=== PATIENT | male | born 1950 | race Caucasian/White ===

== ENCOUNTER 2019-04-28 16:12 | Inpatient (IN) ==
[2019-04-28] MEDS ORDERED: ASPIRIN PO ONE (16:20)
--- NOTE | 2019-04-28 17:31 | Diag Imaging Result Doc PS360 ---
EXAM: CHEST-2 VIEWS 04/28/2019 HISTORY: sob TECHNIQUE: PA and lateral chest COMMENT: There are bilateral pleural effusions. This was not the case on 05/23/2017 which is the most recent previous study. There is bibasilar atelectasis or pneumonia. IMPRESSION: Bilateral pleural effusions and basilar atelectasis. Electronically signed by Sean Leo 04/28/2019 5:28 PM
[2019-04-28] MEDS ORDERED: DUONEB (A & A) INH ONE (18:49)
--- NOTE | 2019-04-28 18:59 | PROVIDER DOCUMENTATION ---
HPI-Respiratory General - General Chief Complaint: Shortness of Breath Stated Complaint: Ozzie ONTIVEROS REFERRED Time Seen by Provider: 04/28/19 18:40 Source: patient, family ( at bedside) Allergies/Adverse Reactions: Patient Allergies Allergy/AdvReac Type Severity Reaction Status Date / Time No Known Allergies Allergy Verified 04/28/19 18:53 Home Medications: Home Medication List Medication Instructions Recorded Confirmed Last Taken Type Aspirin 81 mg PO DAILY 10/24/12 04/28/19 04/28/19 History LISINOpril [Prinivil] 20 mg PO BID 10/24/12 04/28/19 04/28/19 History Insulin Lispro [Humalog Kwikpen 100 unit SQ DIRECTED 05/22/17 04/28/19 04/28/19 History U-100] Insulin Detemir [Levemir] 18 unit SUBQ BID 04/28/19 04/28/19 04/28/19 History - History of Present Illness-Resp Nature of Presenting Problem: 68 YO M pmh for HTN presents for c/o SOB and orthopnea x 3 weeks. Pt states he went to [place] 2 months ago and returned and was dx with bronchitis, but the cough never went away. He went to PCP today and had imaging performed which showed fluid on his lungs. He also has worsening renal function. He has pmh for HTN and IDDM. He has associated cough, LE swelling with weight gain, and orthopnea. He denies fever or sick contacts. He follows with Dr. Read for renal. Onset/Duration: reports: other (3 weeks ago) Timing: reports: still present, getting worse Cough Quality/Degree: reports: dry cough Episode Frequency: no prior episodes Modifying Factors: improves with: nothing Associated Symptoms: reports: shortness of breath, other (orthopnea) Similar Symptoms Previously?: No Recently seen or treated by another doctor?: No Review of Systems - Adult - REVIEW OF SYSTEMS - ADULT Constitutional: denies: chills, fever Eyes: reports: no symptoms reported Ears, Nose, Mouth & Throat: reports: no symptoms reported Cardiovascular: reports: edema. denies: chest pain, palpitations Respiratory: reports: cough, shortness of breath. denies: pleurisy, wheezing Gastrointestinal: reports: nausea. denies: abdominal pain, constipation Genitourinary: reports: no symptoms reported. denies: dysuria, frequency, flank pain, hematuria, urinary retention, urgency Musculoskeletal: reports: no symptoms reported Integumentary: reports: no symptoms reported Neurological: reports: no symptoms reported Psychiatric: reports: no symptoms reported Past History - Adult - PAST MEDICAL HISTORY-ADULT Review of Records: reports: Old Records Reviewed, Medications Reviewed, Social history reviewed & non-contributory. Major Childhood Illnesses: reports: denies history Cardiovascular: reports: HTN Respiratory: reports: denies history Gastrointestinal: reports: denies history Genitourinary: reports: denies history Musculoskeletal: reports: denies history Neurological: reports: denies history Endocrine/Immune: reports: Diabetes Diabetes Type: Type 2 Diabetes controlled by:: Insulin Dependent Other Conditions: reports: denies history - PRIOR SURGERIES/PROCEDURES Surgical/Procedure History: reports: orthopedic (extremity) - IMMUNIZATION STATUS Childhood Immunizations: See Nurse Assessment Flu Vaccine: See Nurse Assessment - FAMILY HISTORY Family History: reviewed, not pertinent - SOCIAL HISTORY Smoking: denies, non-smoker Substance Use: denies Alcohol Use Frequency: occasionally Number of drinks per typical drinking period:: 2 drinks Living Situation: family Physical Exam-General - PHYSICAL EXAM-ADULT Initial Vital Signs Reviewed: Yes - CONSTITUTIONAL General Appearance: alert, no apparent distress - EYES Eyes: PERRL/EOMI, pink conjunctivae - HEAD, EARS, NOSE, MOUTH & THROAT HENMT: normocephalic/atraumatic, moist mucous membranes - NECK Neck: supple - RESPIRATORY Respiratory: crackles (b/l lower lung bases) - CARDIOVASCULAR Cardiovascular: regular rate, rhythm - GASTROINTESTINAL (ABDOMEN) Abdominal Exam: non tender, soft. negative: distended, guarding, rigid, rebound - MUSCULOSKELETAL Back Exam: no CVA tenderness Extremity: normal range of motion, normal gait, swelling (3+ pitting edema to thigh b/l) - SKIN Integumentary: normal color, normal turgor, warm/dry - NEUROLOGIC Neurologic: grossly normal - PSYCHIATRIC Psych/Mental Status: normal mood/affect, oriented x 3 Progress - PLAN OF CARE/RESULTS Progress/Plan/Lab Results: Vital Signs - 8 hr 04/28/19 16:18 04/28/19 19:10 Temperature 97.9 F Pulse Rate 76 78 Respiratory Rate 18 16 Blood Pressure 198/107 O2 Sat by Pulse Oximetry 98 Laboratory Results - last 24 hr 04/28/19 04/28/19 04/28/19 19:10 19:10 19:10 WBC 8.55 RBC 4.40 L Hgb 13.6 L Hct 40.7 L MCV 92.5 MCH 30.9 MCHC 33.4 RDW Std Deviation 13.6 Plt Count 241 MPV 11.1 H Immature Gran % (Auto) 0.0 Neut % (Auto) 70.2 Lymph % (Auto) 21.4 Scre[place] % (Auto) 5.3 Eos % (Auto) 2.3 Baso % (Auto) 0.8 Immature Gran # (Auto) 0.00 Neut # (Auto) 6.00 Lymph # (Auto) 1.83 Screven # (Auto) 0.45 Eos # (Auto) 0.20 Baso # (Auto) 0.07 PT INR PTT (Actin FS) Sodium 144 Potassium 4.5 Chloride 112 H Carbon Dioxide 20 L Anion Gap 12 BUN 36 H Creatinine 2.2 H Estimated GFR/1.73 m2 30 BUN/Creatinine Ratio 16 Glucose 171 H Calculated Osmolality 299 Calcium 9.1 Magnesium 2.0 Total Bilirubin 0.21 AST 21 ALT 15 Alkaline Phosphatase 74 Creatine Kinase 151 Troponin T High Sens Wna-E-Yiondwaghgy Pept 7840 H Total Protein 5.7 L Albumin 3.3 L Globulin 2.4 Albumin/Globulin Ratio 1.4 04/28/19 04/28/19 19:10 19:10 WBC RBC Hgb Hct MCV MCH MCHC RDW Std Deviation Plt Count MPV Immature Gran % (Auto) Neut % (Auto) Lymph % (Auto) Scre[place] % (Auto) Eos % (Auto) Baso % (Auto) Immature Gran # (Auto) Neut # (Auto) Lymph # (Auto) Screven # (Auto) Eos # (Auto) Baso # (Auto) PT 12.9 INR 0.97 PTT (Actin FS) 20.3 L Sodium Potassium Chloride Carbon Dioxide Anion Gap BUN Creatinine Estimated GFR/1.73 m2 BUN/Creatinine Ratio Glucose Calculated Osmolality Calcium Magnesium Total Bilirubin AST ALT Alkaline Phosphatase Creatine Kinase Troponin T High Sens 46 H Bbk-X-Arbkpyvymmt Pept Total Protein Albumin Globulin Albumin/Globulin Ratio Orders Category Date Time Status Cardiac Monitoring DIRECTED Care 04/28/19 16:20 Active Oxygen Therapy- ED Nursing DIRECTED Care 04/28/19 16:20 Active Saline Loc NOW Care 04/28/19 16:20 Active CHEST-2 VIEWS [RAD] Stat Exams 04/28/19 16:20 Completed CBC WITH ELECTRONIC DIFF [HEME] Stat Lab 04/28/19 19:10 Completed CK PROFILE [SP CHEM] Stat Lab 04/28/19 19:10 Completed COMPREHENSIVE METABOLIC PANEL [CHEM] Stat Lab 04/28/19 19:10 Completed MAGNESIUM [CHEM] Stat Lab 04/28/19 19:10 Completed PRO B-NATRIURETIC PEPTIDE Stat Lab 04/28/19 19:10 Completed PROTIME WITH INR [COAG] Stat Lab 04/28/19 19:10 Completed PTT [COAG] Stat Lab 04/28/19 19:10 Completed TROPONIN T HIGH SENSITIVITY Stat Lab 04/28/19 19:10 Completed Albuterol 2.5MG/Ipratrop 0.5MG [Duoneb (A & A)] Med 04/28/19 18:49 Discontinued 6 ml INH NOW ONE Aspirin Med 04/28/19 16:20 Discontinued 325 mg PO NOW ONE Aerosol Treatments Routine Oth 04/28/19 18:49 Completed Aerosol Treatments Stat Oth 04/28/19 18:49 Completed CP/SOB/Palp >45 yrs of Age Stat Oth 04/28/19 16:20 Ordered EKG [EKG] Stat Ther 04/28/19 16:20 Ordered Result Diagrams: 04/28/19 19:10 04/28/19 19:10 - REASSESSMENT Reassessment #1 Time Reassessed: 19:48 Status: other (pt presents with labs from his PCP that were drawn in Jan 2019, showing creat of 2.2 with GFR in the 30s. planning for admission when labs return) - XRAY 1 XRAY Study: Chest Impression: Abnormal, See EMR Report (EXAM: CHEST-2 VIEWS 04/28/2019 HISTORY: sob TECHNIQUE: PA and lateral chest COMMENT: There are bilateral pleural effusions. This was not the case on 05/23/2017 which is the most recent previous study. There is bibasilar atelectasis or pneumonia. IMPRESSION: Bilateral ple ural effusions and basilar atelectasis. Electronically signed by Sean Leo 04/28/2019 5:28 PM) - CONSULTS/PCP/HOSPITALIST Notification #1 *Consult/PCP/Hospitalist*: Dr. Joseph Time Discussed: 20:03 Consult Disposition: Will see in ED, Admit Departure - Departure Date of Disposition Decision: 01/14/20 Time of Disposition Decision: 19:08 DIAGNOSIS: New onset of congestive heart failure, CHF exacerbation, Renal insufficiency, Pleural effusion Dyspnea Qualifiers: Dyspnea type: orthopnea Qualified Code(s): R06.01 - Orthopnea Disposition: ADMITTED INPATIENT 09 Certified Medical Emergency: Emergent Condition: Stable Referrals and Follow-Ups: Mikayla Ontiveros CRNP [Primary Care Provider] - - Critical Care Note This patient required my direct & personal management of CC.: No Attestation - Physician/ FOREST Attestation Patient care was provided by Advanced Practice Provider:: No The physician spent face to face time with patient:: Yes Advanced Practice Provider documentation review:: Supervising physician onsite and consulted in the evaluation and care of this patient. The physician did have a face to face encounter with the patient.
[2019-04-28 19:27] LABS: INR 0.97; PROTIME 12.9 Seconds (11.0-16.0)
[2019-04-28 19:28] LABS: PTT 20.3 Seconds (22.3-41.8)
[2019-04-28 19:29] LABS: BASO# 0.07 X1000 (0.0-0.2); BASO% 0.8 % (0.0-0.8); EOS% 2.3 % (0.0-10.0); HEMATOCRIT 40.7 % (42.0-52.0); HEMOGLOBIN 13.6 g/dL (14.0-18.0); LYMPH# 1.83 X1000 (1.2-3.4); LYMPH% 21.4 % (20.5-51.1); MCH 30.9 PG (27-31); MCHC 33.4 g/dL (33-37); MCV 92.5 FL (81-99); MONO# 0.45 X1000 (0.11-0.59); MONO% 5.3 % (1.7-9.3); MPV 11.1 FL (7.4-10.4); NEUT% 70.2 % (42.2-75.2); PLT 241 X1000 (130-400); RDW 13.6 % (11.5-14.5); WBC 8.55 X1000 (4.8-10.8)
[2019-04-28 19:46] LABS: ALB/GLOB RATIO 1.4; ALBUMIN 3.3 g/dL (3.5-5.0); CALCIUM 9.1 mg/dL (8.8-10.2); CREATININE 2.2 mg/dL (0.7-1.2); POTASSIUM 4.5 mmol/L (3.5-5.1); TOTAL BILIRUBIN 0.21 mg/dL (0.20-1.00); TOTAL PROTEIN 5.7 g/dL (6.3-8.3)
--- NOTE | 2019-04-28 20:28 | EKG Report ---
Test Performed on : 04/28/2019 4:30:12 PM Test Reason : sob Blood Pressure : / mmHG Vent. Rate : 078 BPM Atrial Rate : 078 BPM P-R Int : 160 ms QRS Dur : 084 ms QT Int : 390 ms P-R-T Axes : 004 000 128 degrees QTc Int : 444 ms Sinus rhythm. with frequent premature ventricular complexes. Possible Left atrial enlargement ST & T wave abnormality, consider lateral ischemia Abnormal ECG When compared with ECG of 22-MAY-2017 22:49, premature ventricular complexes. are now present T wave inversion now evident in Lateral leads Unconfirmed Result
[2019-04-28] MEDS ORDERED: SALINE LOCK IV FLUID XX ONE (23:14)
[2019-04-29] MEDS ORDERED: LABETALOL IV PRN (01:18)
[2019-04-29] MEDS: LASIX IV SCH ×4 (02:01→23:55)
[2019-04-29] MEDS ORDERED: NITROGLYCERIN TOP PRN (04:20)
--- NOTE | 2019-04-29 04:51 | EKG Report ---
Test Performed on : 04/29/2019 03:55:24 AM Test Reason : chest pain Blood Pressure : / mmHG Vent. Rate : 084 BPM Atrial Rate : 084 BPM P-R Int : 178 ms QRS Dur : 082 ms QT Int : 390 ms P-R-T Axes : 056 053 123 degrees QTc Int : 460 ms Sinus rhythm. with frequent premature ventricular complexes. ST & T wave abnormality, consider lateral ischemia Prolonged QT Abnormal ECG When compared with ECG of 28-APR-2019 16:30, (Unconfirmed) No significant change was found Confirmed by Travis SMITH, Mk Horne ([id number]) on 04/30/2019 12:22:29 PM
[2019-04-29] MEDS: COREG PO SCH ×3 (05:58→21:47)
[2019-04-29] MEDS: HUMALOG SUBQ SCH ×4 (06:13→21:54)
[2019-04-29] MEDS: PRILOSEC PO SCH (06:14)
[2019-04-29 08:04] LABS: BASO# 0.07 X1000 (0.0-0.2); BASO% 0.9 % (0.0-0.8); EOS# 0.03 X1000 (0.0-0.7); EOS% 0.4 % (0.0-10.0); HEMATOCRIT 38.5 % (42.0-52.0); HEMOGLOBIN 12.7 g/dL (14.0-18.0); IMM GRAN# 0.04 X1000 (0.0-0.04); IMM GRAN% 0.5 % (0.0-0.5); LYMPH# 1.07 X1000 (1.2-3.4); LYMPH% 13.1 % (20.5-51.1); MCV 93.9 FL (81-99); MONO# 0.33 X1000 (0.11-0.59); MPV 10.9 FL (7.4-10.4); NEUT# 6.61 X1000 (1.4-6.5); NEUT% 81.1 % (42.2-75.2); PLT 230 X1000 (130-400); RDW 13.8 % (11.5-14.5); WBC 8.15 X1000 (4.8-10.8)
--- NOTE | 2019-04-29 08:08 | HISTORY AND PHYSICAL ---
CHIEF COMPLAINT: Shortness of breath for about 2 to 3 weeks. HISTORY OF PRESENT ILLNESS: Mr. Az Nolasco is a 68-year-old male who has a history of diabetes mellitus, hypertension, chronic kidney disease, and has been experiencing shortness of breath for the last 2 to 3 weeks. The patient also describes having orthopnea, as well as leg swelling. When he presented to the hospital, he was found to have a proBNP level of 7840. X-ray of the chest showed evidence of bilateral pleural effusion, as well as bibasilar atelectasis. The patient will now be admitted to the floor for further management. PAST MEDICAL HISTORY: Diabetes mellitus, hypertension, chronic kidney disease, as well as abnormal thyroid. PAST SURGICAL HISTORY: The patient has had left shoulder surgery. SOCIAL HISTORY: No cigarette smoking. No alcohol or drug use. ALLERGIES: No known drug allergies. FAMILY HISTORY: Positive for strokes, as well as congestive heart failure. MEDICATIONS: The patient's medications include aspirin 81 mg p.o. daily, lisinopril 20 mg p.o. twice a day, insulin lispro 100 units subcutaneously daily, Levemir 18 units subcutaneously twice a day. REVIEW OF SYSTEMS: Constitutional: No fever. Central Nervous System: No headaches. Eyes: Uses glasses. ENT: Has some hearing loss. Cardiovascular: Has chest pain. Respiratory: Has cough. Gastrointestinal: Has no vomiting, as well as no abdominal pains. Genitourinary: No dysuria. Musculoskeletal: No joint pains. Dermatology: No skin lesions. Hematology: No bleeding problems. Endocrine/Allergies: He does have thyroid abnormalities. Psychiatric: No anxiety or depression. LABORATORY DATA: WBC is 8.55, hematocrit is 40, with a platelet count of 241,000. Sodium is 144, potassium 4.5, chloride is 112, bicarbonate is 20, BUN is 36, creatinine 2.2, glucose 171. proBNP 7840. X-ray of the chest shows bilateral pleural effusion, as was bibasilar atelectasis. His EKG shows normal sinus rhythm with possible left atrial enlargement, as well as ST and T abnormalities. ASSESSMENT AND PLAN: 1. Acute congestive heart failure. We will monitor patient's inputs and outputs, as well as daily weights. Maintain patient on diuretics as needed. Obtain 2D echocardiogram of the heart to assess the patient's ejection fraction. 2. Acute kidney injury superimposed on chronic kidney disease. We will discontinue lisinopril for now. We will also avoid drugs like nonsteroidal anti-inflammatory drugs. Closely follow up on renal function. The patient may need gentle hydration. Consult with Nephrology. 3. Atypical chest pain/elevated troponin. Maintain the patient on telemetry. I will follow up on serial cardiac enzymes. Start patient on aspirin, as well as beta- rain. Consult with Cardiology. 4. Anemia. Check iron studies, along with B12, as well as folate level. 5. Hypertension. We will discontinue lisinopril for right now in light of impaired renal function. Optimize blood pressure control by using a different agent. 6. Diabetes mellitus. Maintain patient on sliding scale insulin. Monitor blood sugar levels. Check hemoglobin A1c level. 7. Deep vein thrombosis prophylaxis. Sequential compression devices. 8. Gastrointestinal prophylaxis. Proton pump inhibitor. cc: Bello Joseph MD MTDD
[2019-04-29 08:23] LABS: HEMOGLOBIN A1C 7.4 % (4.8-6.0)
[2019-04-29] MEDS ORDERED: LEVEMIR SUBQ SCH (09:00)
[2019-04-29] MEDS: ASPIRIN PO SCH (09:52)
[2019-04-29 11:14] LABS: URINE SOURCE CLEAN CATCH
[2019-04-29 11:22] LABS: BILIRUBIN URINE NEGATIVE (NEGATIVE); BLOOD URINE MODERATE (NEGATIVE); COLOR YELLOW; GLUCOSE URINE 500 mg/dL (NEGATIVE); KETONE URINE TRACE mg/dL (NEGATIVE); LEUKOCYTES URINE NEGATIVE (NEGATIVE); NITRITE URINE NEGATIVE (NEGATIVE); PROTEIN URINE 600 mg/dL (NEGATIVE); SP GRAVITY URINE 1.021; TURBIDITY URINE CLEAR (CLEAR); UROBILINOGEN URINE NORMAL (NORMAL)
[2019-04-29] MEDS: NORVASC PO SCH (11:22)
[2019-04-29 11:24] LABS: UR EPITHELIAL CELLS <10 /HPF (<10); URINE BACTERIA NEGATIVE /HPF; URINE WBC <10 /HPF (<10)
[2019-04-29 13:47] LABS: UR CREAT RANDOM 115.3 mg/dL (14-26); UR PROT RANDOM > 600.0 mg/dL; UR SODIUM 72 mmoll
--- NOTE | 2019-04-29 16:12 | PROVIDER PROGRESS NOTE ---
Progress Note Chief complaint: Fluid in my lungs. HPI: Mr. Nolasco is a 68-year-old white male with a past medical history of hypertension, diabetes mellitus type two, diabetic neuropathy, and assumed kidney disease. Mr. Nolasco started having his troubles back in February when on vacation to [place]. He voices developing a cough and feelings of malaise on the first day into his trip. When he returned home he went to see his primary care doctor, Dr. Kandy Ontiveros. She diagnosed him with bronchitis and gave him an antibiotic that he can not recall the name of. The patient says he never really got over the cough and starting approximately 3 weeks ago he progressively felt worse with a new onset of BLE edema, foamy urine, and nocturnal orthopnea. He denies ever having chest pain, n/v, or change in urine production. He scheduled an appointment with Dr. Ontiveros again yesterday who performed a chest X-ray and told him he needed to go to the hospital for fluid in his lungs and BLE edema. He told me that just in the last 2 days he has developed urine hesitancy. He admits to Dr. Ontiveros mentioning something about his kidney function declining and that he was placed on lisinopril years ago for diabetic reasons. Past medical history: hypertension, diabetes Mellitus type 2, diabetic neuropathy Past surgical history: left shoulder repair Family history: Mother passed of CHF, father passed of stroke. Social history: Lives at home with his . Denies alcohol, tobacco, or illicit drug use. Allergies: no known drug allergies Home medication: aspirin, Levemir, Humalog, lisinopril Review of systems: a 14 point review complete. All pertinent positives mentioned in the above HPI. Physical exam: temperature 97.6, pulse 74, respirations 20, blood pressure 168/85, 02 sat 98% on room air. General: white male lying in bed in no acute distress HEENT: normocephalic, atraumatic, pupils equal and reactive. Mucous membranes . Skin: warm and dry. Neck: supple, JVD with hepatojugular reflux Cardiovascular: S1S2, regularly irregular rate and rhythm, no murmur or gallop. Respiratory: crackles to right base posteriorly. Abdomen: soft, nontender, nondistended, bowel sounds present : non inspected Extremities: 2+ pitting edema to BLE Neurological: alert and oriented to person, place, and time Labs: WBC 8.15, hemoglobin 12.7, hematocrit 38.5, platelet count 230, sodium 144, potassium 4.5, chloride 112, BUN 36, creatinine 2.2. Imaging: bilateral pleural effusion and basilar atelectasis Assessment and Plan: Acute kidney injury versus chronic kidney disease secondary to diabetic nephropathy. We will try to obtain records from Dr. Kandy Ontiveros in [place]. Urine studies and renal imaging ordered. If all is normal we assume this is diabetic nephropathy but may need a biopsy in the future. Hypertension. Work on control. Anemia. Stable. Electrolytes and acid base balance. Stable. Nutrition. Adequate. Medication review.
--- NOTE | 2019-04-29 16:25 | Diag Imaging Result Doc PS360 ---
US RENAL 2 (RETROPER) COMPLETE - 04/29/2019 INDICATION: decreased renal function TECHNIQUE: COMPARISON: 05/23/2017 FINDINGS: At the inferior urinary bladder, there is a lobular indeterminate hypoechoic area. This measures 7.4 x 5.2 x 5.2 cm. This is partially imaged due to its location. The kidneys themselves are normal. The right kidney measures 12.5 x 5.1 x 5.7 cm. The left kidney measures 12 x 6 x 6.5 cm. No hydronephrosis. IMPRESSION: Indeterminate mass in the pelvic floor. Recommend further evaluation with a CT or MRI of the pelvis. Preferably with intravenous contrast. Electronically signed by Armani Priest 04/29/2019 4:23 PM
--- NOTE | 2019-04-29 16:26 | ECHO REPORT ---
ORDER DATE: 04/29/2019 INTERPRETING PHYSICIAN: Dr. Jeff Valdez. ECHOCARDIOGRAPHIC MEASUREMENTS: 1. Interventricular septum: 1.4 cm. 2. Left ventricular posterior wall: 1.3 cm. 3. Diastolic diameter: 4.5 cm. 4. Left atrium: 3.9 cm. 5. Aorta: 3.4 cm. SUMMARY OF THE 2-DIMENSIONAL IMAGIN. Aortic valve leaflets were trileaflet. 2. Mitral valve was normal. 3. Tricuspid valve was normal. 4. Pulmonic valve was normal. 5. There is mild tricuspid regurgitation. 6. Peak velocity across the tricuspid valve was 3.7 meters per second. 7. Pulmonary artery systolic pressure of 65 mmHg. 8. There is left atrial enlargement. 9. Normal right ventricular cavity size and function. 10. Normal left ventricular cavity size. 11. Concentric left ventricular hypertrophy. 12. Estimated ejection fraction of 55 to 60%. 13. There is grade 2 diastolic dysfunction. 14. There is mild mitral regurgitation. 15. Peak velocity across the aortic valve less than 2 meters per second. 16. There is no aortic stenosis or regurgitation. 17. There is mild mitral regurgitation. 18. There is trace anterior and posterior pericardial effusion. 19. There is no evidence of tamponade. 20. There is no obvious intracardiac mass or thrombus seen. cc: MD Bello Singh MD
--- NOTE | 2019-04-29 17:34 | PROGRESS NOTE ---
DATE: 04/29/2019 INTERVAL HISTORY: The patient with dyspnea on exertion, orthopnea, lower extremity edema. Initial evaluation suggesting likely new diagnosis of congestive heart failure. He is getting diuresed with a mildly negative balance thus far. Symptoms approximately stable appearing comfortable at rest. REVIEW OF SYSTEMS: Twelve point review of systems negative except as per interval history. LABORATORY DATA: WBC 8.15, hemoglobin 12.7, hematocrit 38.5, platelets 230,000. Glucose 141. A1c 7.4. Repeat troponin 47, essentially unchanged from previous. VITAL SIGNS: T-max 98.4 degrees, pulse 85, respirations 20, blood pressure 168/85, O2 saturation 98% on room air. PHYSICAL EXAMINATION: General: No acute distress. Vitals: As above. HEENT: Normocephalic, atraumatic. Moist mucous membranes. Cardiovascular: Regular rate and rhythm. No murmurs noted. Pulmonary: Minimal bibasilar crackles otherwise clear to auscultation. Abdomen: Soft, nontender, nondistended. Bowel sounds positive. Extremities: Peripheral pulses intact. No clubbing or cyanosis. Significant 2 to 3+ pitting edema in bilateral lower extremities. Neurologic: Cranial nerves grossly intact. No focal deficits. Psychiatric: Normal mood and affect. Awake, alert, oriented x3. ASSESSMENT AND PLAN: 1. Likely acute congestive heart failure. Patient with progressive swelling, orthopnea and dyspnea on exertion over the last few weeks. No previous diagnosis of congestive heart failure. BNP significantly elevated at 7840. Chest x-ray with bilateral effusions. All pretty consistent with congestive heart failure. Echocardiogram obtained with read pending. We will continue diuresis for now and monitor closely. 2. Acute kidney injury. Patient baseline creatinine appears to be essentially normal 0.9 to 1.2. Creatinine up to 2.2 on admission. Clinically looks to be volume overloaded, so we will proceed with diuresis and monitor kidney function closely. 3. Diabetes mellitus. The patient reports that he has had to cut back on his insulin at home because his home dose of Levemir 18 b.i.d. has been giving him nocturnal hypoglycemia. We will do just 1 daily dose of 18 of Levemir in the morning for now and monitor. 4. Hypertension. Holding home lisinopril because of acute kidney injury. Has had pretty significantly elevated blood pressures, so he has been started on low-dose Coreg and Norvasc. We will continue to monitor blood pressure. Adjust further as needed.
--- NOTE | 2019-04-29 21:29 | Diag Imaging Result Doc PS360 ---
EXAM: CT THORAX/ABD/PELVIS W/O CON HISTORY: likely bladder mass. Cancer eval. MANDA so no contr. TECHNIQUE: 1. CT chest without intravenous contrast 2. CT abdomen and pelvis without intravenous or contrast COMPARISON: None. FINDINGS: Chest: There are neoij-ae-gbatieum sized bilateral pleural effusions. The one on the right measures 4.1 cm posteriorly and inferiorly in the midline where is the one left measures 3.3 cm. Small pericardial effusion measuring 7 mm anteriorly. Heart is mildly enlarged. Small mediastinal nodes. There are several calcified right hilar nodes with scattered granuloma. Atelectasis is present in the lung bases and there may be small underlying infiltrates. Abdomen and pelvis: There are multiple stones within the gallbladder. No focal hepatic abnormality identified on this noncontrasted exam. No splenomegaly. Normal pancreas and adrenal glands. There are multiple bilateral nonobstructing renal stones and there is scarring to the kidneys. No hydronephrosis. No aortic aneurysm. No bowel obstruction. No definite urinary bladder mass. The prostate is prominent measuring 4.3 x 5.4 hip arthritis and degenerative changes in the spine. Cm. IMPRESSION: Chest: 1. Bilateral pleural effusions with basilar atelectasis and possibly small underlying infiltrates 2. There is evidence of a prior granulomatous infection 3. Mild cardiomegaly with a small pericardial effusion Abdomen and pelvis: 1. Cholelithiasis and 2. Nephrolithiasis with renal scarring 3. No definite urinary bladder mass. The prostate is prominent. This exam was performed using automated exposure control, adjustment of mA or kV according to patient size, and/or use of iterative reconstruction technique. Electronically signed by Kev Berry 04/29/2019 9:27 PM
--- NOTE | 2019-04-30 00:43 | CONSULTATION ---
DATE OF CONSULTATION: 04/29/2019 IMPRESSION: 1. Congestive heart failure/volume overload probably due to acute on chronic renal dysfunction. 2. Hypertensive cardiovascular disease with echocardiography this admission showing left ventricular hypertrophy and preserved left ventricular systolic function. 3. Longstanding diabetes mellitus, type 2. 4. Chronic kidney disease. RECOMMENDATIONS: 1. Follow up echocardiogram report. 2. Continue to manage hypertension as you are doing. 3. Agree with diuresis. 4. Follow up renal ultrasound study. 5. We will defer further management of hypertension to nephrology team and Dr. Cosme. HISTORY: This 68-year-old white male with past history of longstanding type 2 diabetes mellitus, chronic kidney disease and hypertension for the past couple years, was admitted with progressive edema and shortness of breath. He was found to have evidence of volume overload. Cardiology was consulted for possible cardiac etiology. He relates for the past week or so he has had progressive lower extremity swelling. He started having some exertional shortness of breath and orthopnea. There has been no chest pain. He has been found to have evidence of volume overload with small bilateral pleural effusions and significant edema. Creatinine has elevated above baseline. He is being diuresed with good affect from IV Lasix. Preliminary interpretation of echocardiography shows left hypertrophy and preserved left ventricular systolic function. He has had a history of using Mobic for arthritis in the past, but discontinued this perhaps 3 months ago. PAST MEDICAL HISTORY: 1. Type 2 diabetes mellitus, longstanding. 2. Chronic kidney disease. 3. Hypertensive cardiovascular disease. PAST SURGICAL HISTORY: Left shoulder repair, arthroscopic. ALLERGIES: No known drug allergies. MEDICATIONS PRIOR TO ADMISSION: As listed. SOCIAL HISTORY: He is retired and . He does not smoke nor use alcohol. FAMILY HISTORY: Negative for premature coronary disease. REVIEW OF SYSTEMS: Pulmonary: Noncontributory beyond history of present illness. Gastrointestinal: Noncontributory beyond history present illness. Constitutional: Noncontributory beyond history present illness. Remainder of review of systems is noncontributory beyond history of present illness with 14 total systems reviewed. PHYSICAL EXAMINATION: General: This is a pleasant, older white male in no distress on room air. Vital signs: Blood pressure 159/86. Heart rate 78 and regular. Oxygen saturation 100% on room air. HEENT: Extraocular movements appear intact. Mucous membranes are moist. Neck: Supple without jugular venous distention. Chest: Auscultation demonstrates some diminished breath sounds in the bases bilaterally. No rales could be appreciated. Cardiac: Reveals a regular rate and rhythm without appreciable murmur or gallop. Abdomen: Soft. Bowel sounds are normal. Extremities: Demonstrate mild pretibial edema. Neurologic: Alert and fully oriented. Speech is fluent. Moves all 4 extremities equally well. Skin: Warm and dry. Psychiatric: Reveals mood to be appropriate. ELECTROCARDIOGRAM: The 12-lead EKG demonstrates sinus rhythm with premature ventricular complexes and nonspecific ST and T-wave abnormality. LABORATORY DATA: Include sodium 144, potassium 4.5, chloride 112, carbon dioxide 20, BUN 36, creatinine 2.2. Glucose 171, CPK 151, Pro B-natriuretic peptide level 7840. Troponin T 46, INR 0.97. White blood cell count 8.15, hematocrit 38.5, platelet count 230,000, hemoglobin 12.7. cc: Rony Bautista MD
[2019-04-30] MEDS: PRILOSEC PO SCH (06:13)
[2019-04-30] MEDS: HUMALOG SUBQ SCH ×4 (06:13→21:52)
--- NOTE | 2019-04-30 07:29 | EKG Report ---
Test Performed on : 04/30/2019 06:56:30 AM Test Reason : hypertensive CV disease, PVCs Blood Pressure : / mmHG Vent. Rate : 072 BPM Atrial Rate : 072 BPM P-R Int : 180 ms QRS Dur : 084 ms QT Int : 406 ms P-R-T Axes : 036 023 144 degrees QTc Int : 444 ms Sinus rhythm. with occasional premature ventricular complexes. Possible Left atrial enlargement Left ventricular hypertrophy T wave abnormality, consider lateral ischemia Abnormal ECG When compared with ECG of 29-APR-2019 03:55, (Unconfirmed) T wave inversion more evident in Lateral leads Confirmed by Travis SMITH, Mk Horne ([id number]) on 04/30/2019 12:24:05 PM
[2019-04-30] MEDS: LEVEMIR SUBQ SCH (08:46)
[2019-04-30] MEDS: ASPIRIN PO SCH (08:47)
[2019-04-30] MEDS: COREG PO SCH ×2 (08:47→21:52)
[2019-04-30] MEDS: NORVASC PO SCH (08:47)
[2019-04-30 08:49] LABS: BASO# 0.06 X1000 (0.0-0.2); EOS# 0.17 X1000 (0.0-0.7); EOS% 2.8 % (0.0-10.0); HEMATOCRIT 37.4 % (42.0-52.0); HEMOGLOBIN 12.1 g/dL (14.0-18.0); LYMPH% 22.7 % (20.5-51.1); MCH 30.4 PG (27-31); MCHC 32.4 g/dL (33-37); MONO# 0.29 X1000 (0.11-0.59); MONO% 4.7 % (1.7-9.3); MPV 11.1 FL (7.4-10.4); NEUT# 4.24 X1000 (1.4-6.5); NEUT% 68.8 % (42.2-75.2); PLT 208 X1000 (130-400); RBC 3.98 XMIL (4.7-6.1); RDW 13.5 % (11.5-14.5); WBC 6.16 X1000 (4.8-10.8)
[2019-04-30 09:04] LABS: IRON SATURATION 47 %; TIBC 218 ug/dL; TOTAL IRON 103 ug/dL (53-167); UNBOUND IRON 115 ug/dL (112-346)
[2019-04-30 09:20] LABS: ALBUMIN 2.8 g/dL (3.5-5.0); CREATININE 2.3 mg/dL (0.7-1.2); PHOSPHORUS 2.9 mg/dL (2.7-4.5); POTASSIUM 4.1 mmol/L (3.5-5.1)
[2019-04-30 09:29] LABS: FERRITIN 336 ng/mL (30-400)
--- NOTE | 2019-04-30 11:57 | Extremity Venous Study ---
PROCEDURE NAME: Venous U/S Bilateral Legs - 04/29/2019 PROCEDURE: Bilateral lower extremity venous study. DATE OF STUDY: 04/29/2019. REQUESTING PROVIDER: Singh. PROCESS TANK TENDER: Lindsey. INDICATIONS: Edema in both legs. EQUIPMENT: [employer] E 9 ultrasound system and a 9 L-D transducer. FINDINGS: Images of bilateral lower extremity venous systems were obtained in both sagittal and transverse planes. Doppler was used to evaluate veins for spontaneity, phasicity, respiratory excursion, and digital augmentation. RESULTS: Normal venous compression. Normal venous flow. No obvious superficial or deep venous thrombosis noted. INTERPRETATION: Essentially normal bilateral lower extremity venous study. cc: Moreno Guerin MD
[2019-04-30] MEDS: LASIX IV SCH (12:26)
--- NOTE | 2019-04-30 15:06 | PROGRESS NOTE ---
DATE: 04/30/2019 INTERVAL HISTORY: The patient still with fairly significant lower extremity edema, but improving from previous. Orthopnea also improving. No new complaints. No dyspnea at rest. No acute events overnight. REVIEW OF SYSTEMS: Twelve point review of systems negative except as per interval history. LABORATORY DATA: WBC 6.1, hemoglobin 12.1, hematocrit 37.4, platelets 208,000. Sodium 140, potassium 4.1, BUN 33, creatinine 2.3, glucose 187 to 225. B12, folate within normal limits. IMAGING: Renal ultrasound yesterday with concern for pelvic mass, but follow-up CT shows only enlarged prostate. Discussed with Radiology and they do confirm that it was the prostate that was seen on the original ultrasound. Lower extremity Dopplers without evidence of DVT, essentially normal. VITAL SIGNS: T-max 98 degrees, pulse 67, respirations 18, blood pressure 130/65. O2 saturation 98% on room air. PHYSICAL EXAMINATION: General: No acute distress. Vitals: As above. HEENT: Normocephalic, atraumatic. Moist mucous membranes. Cardiovascular: Regular rate and rhythm. No murmurs noted. Pulmonary: Very faint bibasilar crackles but largely clear to auscultation bilaterally. Abdomen: Soft, nontender, nondistended. Bowel sounds positive. Extremities: Peripheral pulses intact. No clubbing or cyanosis. Still with 2 to 3+ pitting edema of bilateral lower extremities below the knee, but above the knee swelling almost resolved and below the knee the edema is less tight. Neurologic: Cranial nerves grossly intact. No focal deficits. Psychiatric: Normal mood and affect. Awake, alert, oriented x3. ASSESSMENT AND PLAN: 1. Likely acute on chronic diastolic congestive heart failure. The patient's echo with normal ejection fraction, but diastolic failure and pulmonary hypertension. Suspect untreated sleep apnea as the cause here. Patient's decline in kidney function likely also contributing. Does appear to be responding to diuretics, so we will continue those. Continue to monitor kidney function, edema and exercise tolerance. 2. Mild acute kidney injury on chronic kidney disease 3. The patient's most recent baseline creatinine from outside facility was 2.0. It was 2.2 on admission here, 2.3 today essentially unchanged from admission. Very slightly up from baseline but not really very far off. Dr. Cosme following. We will see if he has any other recommendations. Appears to have had relatively rapid progression of his kidney disease so he could end up needing a biopsy in the future. 3. Benign prostatic hypertrophy. Concern on renal ultrasound for mass but CT confirmed only an enlarged prostate. No urinary issues currently, so will hold off on instituting Flomax for now. 4. Obstructive sleep apnea and pulmonary hypertension. The patient reports that he was previously on CPAP, but had difficulty with the machine and then had difficulty getting insurance to cover a new one. He has not been using CPAP for many years. Suspect untreated sleep apnea as a cause of his pulmonary hypertension. Strongly advised patient to get a new sleep study and get back on CPAP after discharge. 5. Diabetes mellitus reasonable control on current regimen. Continue to monitor. 6. Hypertension. Occasional moderate elevations but generally acceptable control. Just started on Norvasc. We will see what that does before we add anything else to him. 7. Disposition: Appears to be handling diuresis pretty well. Workup has been fairly unremarkable otherwise. If he continues to do well and Nephrology does not feel the need for further workup inpatient, then may be able to discharge home tomorrow.
--- NOTE | 2019-04-30 18:34 | PROVIDER PROGRESS NOTE ---
Progress Note Subjective: He voices feeling much better today. He denies any shortness of breath, chest pain, or decrease in appetite. Objective: temperature 98.0, pulse 70, respirations 20, blood pressure 160/78, 02 sat 99% on room air. General: white male lying in bed in no acute distress HEENT: normocephalic, atraumatic, pupils equal and reactive. Mucous membranes dry. Skin: warm and dry. Neck: supple, 6Cm JVD with no Hepatojugular reflux Cardiovascular: S1S2, regularly irregular rate and rhythm, no murmur or gallop. Respiratory: Improved. Few scattered crackles to right base posteriorly. Abdomen: soft, nontender, nondistended, bowel sounds present : non inspected Extremities:2+ pitting edema to BLE Neurological: alert and oriented to person, place, and time Labs: WBC 6.16, hemoglobin 12.1, hematocrit 37.4, platelet count 208, sodium 140, potassium 4.1, chloride 107, carbon dioxide 24, BUN 33, creatinine 2.3. Intake 260, output 1600. Impression: Chronic kidney disease likely secondary to diabetic nephropathy. Heavy proteinuria. We discussed possible biopsy. He has seen Dr. Thakkar and we will arrange for him to see her in 2 weeks to review test results. Hypertension. Added Coreg yesterday, will monitor for now. Anemia. Stable. Electrolytes and acid base balance. Stable. Nutrition. Adequate. Medication review. Norvasc added.
[2019-04-30 23:43] LABS: CREATININE 2.3 mg/dL (0.7-1.2); UR CREATININE 46.2 mg/dL (14-26)
[2019-05-01 00:04] LABS: UR PROTEIN 287.5 mg/dL
[2019-05-01] MEDS: LASIX IV SCH ×2 (01:25→11:04)
[2019-05-01] MEDS ORDERED: ZOFRAN IV PRN (02:15)
[2019-05-01] MEDS: PRILOSEC PO SCH (06:36)
[2019-05-01] MEDS: HUMALOG SUBQ SCH ×2 (06:36→11:00)
[2019-05-01 07:40] LABS: BASO# 0.05 X1000 (0.0-0.2); BASO% 0.7 % (0.0-0.8); EOS% 1.4 % (0.0-10.0); HEMATOCRIT 35.9 % (42.0-52.0); HEMOGLOBIN 11.7 g/dL (14.0-18.0); LYMPH% 14.9 % (20.5-51.1); MCH 30.4 PG (27-31); MCHC 32.6 g/dL (33-37); MCV 93.2 FL (81-99); MONO# 0.28 X1000 (0.11-0.59); MONO% 3.8 % (1.7-9.3); NEUT# 5.84 X1000 (1.4-6.5); NEUT% 79.2 % (42.2-75.2); PLT 201 X1000 (130-400); RBC 3.85 XMIL (4.7-6.1); RDW 13.1 % (11.5-14.5); WBC 7.37 X1000 (4.8-10.8)
[2019-05-01 08:06] LABS: ALBUMIN 2.6 g/dL (3.5-5.0); CALCIUM 8.7 mg/dL (8.8-10.2); CREATININE 2.4 mg/dL (0.7-1.2); PHOSPHORUS 3.8 mg/dL (2.7-4.5); POTASSIUM 4.4 mmol/L (3.5-5.1)
[2019-05-01] MEDS: NORVASC PO SCH (08:24)
[2019-05-01] MEDS: ASPIRIN PO SCH (08:24)
[2019-05-01] MEDS: LEVEMIR SUBQ SCH (08:25)
[2019-05-01] MEDS: COREG PO SCH (08:25)
[2019-05-01] MEDS ORDERED: COZAAR PO SCH (10:15)
[2019-05-01 12:20] VITALS: BP 131/58
--- NOTE | 2019-05-01 18:14 | NEPHROLOGY PROGRESS NOTE ---
DATE: 05/01/2019 SUBJECTIVE: He states his shortness of breath is better and he does not have significant cough or PND. Swelling persists. OBJECTIVE: Blood pressure 148/63, heart rate 62, respirations 14. Afebrile. Generally in no acute distress. Skin is warm and dry. Neck veins are not appreciated. Heart is regular. No gallops. Lungs are equal. No crackles. Abdomen is soft, nontender. Bowel sounds present. Extremities: Edema 2+. No clubbing or cyanosis. IMPRESSION AND PLAN: 1. Volume overload, improved. I would discharge him on 40 mg of Lasix. I have counseled him about salt restriction and daily weights, and how to titrate diuretic dosing. 2. Nephrotic syndrome. Urine with 7.2 g proteinuria per 24 hours, with a creatinine clearance of 35 mL/minute. Immunofixation electrophoresis is pending. He has followup planned with Dr. Thakkar in our office, who will continue to evaluate the patient and develop a plan. He may require kidney biopsy, and we have discussed this. He is not currently taking an angiotensin receptor rain, so I will add [address] Thakkar can titrate that as an outpatient. cc: Victor Hugo Cosme MD
--- NOTE | 2019-05-02 14:13 | DISCHARGE SUMMARY ---
ADMISSION DATE: 04/28/2019 DISCHARGE DATE: 05/01/2019 CONSULTS: Nephrology, Dr. Cosme. Cardiology, Dr. Bautista. DISCHARGE DIAGNOSES: 1. Acute on likely chronic diastolic congestive heart failure. 2. Pulmonary hypertension. 3. Chronic kidney disease 3 with mild progression. 4. Benign prostatic hypertrophy. 5. History of obstructive sleep apnea which is untreated. 6. Pulmonary hypertension. 7. Diabetes mellitus. 8. Hypertension. HOSPITAL COURSE: The patient presented initially with complaints of rapidly progressive lower extremity edema and orthopnea for approximately 3 weeks after a trip to [facility] and back. He was noted to have significantly elevated BNP at 7840. X-ray showed small bilateral effusions, but no significant pulmonary edema. He did have markedly edematous legs with 3+ bilateral pitting edema, which was symmetric. Ultrasounds were obtained and negative for DVT. The patient was admitted for presumed acute congestive heart failure. Troponins remained essentially negative. Echo and Cardiology consult were obtained. Echo showed normal EF, but diastolic failure and significant pulmonary hypertension. It was thought that he likely had progressive pulmonary hypertension due to untreated sleep apnea as he had been off his CPAP for many years, which then progressed to diastolic heart failure and with his progressing kidney disease, he reached the tipping point and began to have fluid retention and swelling. He responded fairly well to Lasix. His lower extremity edema improved slowly but he still had some swelling at discharge. His orthopnea resolved entirely. Nephrology was involved as well. They checked a renal ultrasound which showed no obstruction. There was briefly concern for possible a pelvic mass based on that ultrasound, but CT showed that it was just an enlarged prostate with no clear sign of malignancy. The patient did have nephrotic range proteinuria, was thought to have nephrotic syndrome, likely related to his diabetes but Nephrology plans further evaluation as an outpatient with likely biopsy. As patient's symptoms were improving and orthopnea resolved entirely, it was felt he was stable to discharge home on adjusted blood pressure medications and Lasix. He did have significant hypertension during his hospitalization. His diabetes was fairly well controlled. Strongly advised patient to get repeat sleep study and get back on CPAP if that confirms that he still has obstructive sleep apnea. DISCHARGE VITALS: Temperature 98.4 degrees, pulse 63, respirations 19, blood pressure 131/58, O2 saturation 100% on room air. DISCHARGE DIET: Diabetic, cardiac, renal. DISCHARGE MEDICATIONS: 1. Aspirin 81 mg daily. 2. Humalog sliding scale as previously prescribed. 3. Levemir 18 units subcu b.i.d. 4. Lisinopril 20 mg p.o. b.i.d. 5. Coreg 12.5 mg p.o. b.i.d. 6. Lasix 40 mg p.o. daily. 7. Norvasc 10 mg p.o. daily. FOLLOWUP AND PLAN: The patient discharging home on adjusted blood pressure medicine and diuretic. Patient to follow up with PCP and Cardiology. Patient to follow up with Nephrology for likely kidney biopsy. Patient is strongly suggested to obtain a sleep study to get set up for CPAP as he has had sleep apnea in the past, which has been untreated for many years. Greater than 30 minutes spent arranging discharge and counseling patient.
== END 2019-05-01 14:04 | disposition home or self-care (01) | DRG 291 ==
LOC: ED 16:12 → 3N 23:06 → SUATTDRO 23:06
PROVIDERS: ATTEND Internal Medicine

== ENCOUNTER 2019-05-02 11:41 | Inpatient (IN) ==
--- NOTE | 2019-05-02 12:22 | Diag Imaging Result Doc PS360 ---
EXAM: CHEST-PORTABLE 05/02/2019 HISTORY: cough TECHNIQUE: AP portable at 1212 COMMENT: There is cardiomegaly. Compared to 04/28/2019 the volume of pleural fluid bilaterally has diminished. There is some increased interstitial opacity bilaterally consistent with pulmonary edema. IMPRESSION: Improved pleural effusions, worsened pulmonary edema. Electronically signed by Sean Leo 05/02/2019 12:20 PM
[2019-05-02 12:25] LABS: BASO# 0.04 X1000 (0.0-0.2); BASO% 0.5 % (0.0-0.8); EOS# 0.03 X1000 (0.0-0.7); EOS% 0.4 % (0.0-10.0); HEMATOCRIT 38.1 % (42.0-52.0); HEMOGLOBIN 12.6 g/dL (14.0-18.0); IMM GRAN# 0.03 X1000 (0.0-0.04); IMM GRAN% 0.4 % (0.0-0.5); LYMPH# 0.34 X1000 (1.2-3.4); LYMPH% 4.4 % (20.5-51.1); MCH 30.4 PG (27-31); MCHC 33.1 g/dL (33-37); MCV 91.8 FL (81-99); MONO# 0.38 X1000 (0.11-0.59); MPV 11.2 FL (7.4-10.4); NEUT# 6.85 X1000 (1.4-6.5); NEUT% 89.3 % (42.2-75.2); PLT 189 X1000 (130-400); RBC 4.15 XMIL (4.7-6.1); RDW 13.1 % (11.5-14.5); WBC 7.67 X1000 (4.8-10.8)
[2019-05-02 12:32] LABS: ALB/GLOB RATIO 1.2; ALBUMIN 3.3 g/dL (3.5-5.0); CALCIUM 8.8 mg/dL (8.8-10.2); CREATININE 2.4 mg/dL (0.7-1.2); TOTAL BILIRUBIN 0.37 mg/dL (0.20-1.00)
[2019-05-02] MEDS ORDERED: LASIX IV ONE (12:51)
[2019-05-02 14:05] LABS: URINE SOURCE CLEAN CATCH
[2019-05-02 14:27] LABS: BILIRUBIN URINE NEGATIVE (NEGATIVE); BLOOD URINE SMALL (NEGATIVE); COLOR YELLOW; GLUCOSE URINE 200 mg/dL (NEGATIVE); KETONE URINE 10 mg/dL (NEGATIVE); LEUKOCYTES URINE NEGATIVE (NEGATIVE); NITRITE URINE NEGATIVE (NEGATIVE); PROTEIN URINE 600 mg/dL (NEGATIVE); SP GRAVITY URINE 1.015; TURBIDITY URINE CLEAR (CLEAR); UROBILINOGEN URINE NORMAL (NORMAL)
[2019-05-02 14:28] LABS: UR EPITHELIAL CELLS <10 /HPF (<10); URINE BACTERIA NEGATIVE /HPF; URINE WBC <10 /HPF (<10)
[2019-05-02] MEDS ORDERED: DILAUDID IV ONE (14:50)
[2019-05-02] MEDS ORDERED: TYLENOL PO PRN (15:24)
--- NOTE | 2019-05-02 16:22 | PROVIDER DOCUMENTATION ---
This chart was entered by Augie Ga Scribe, acting as scribe for Calin Carter DO. HPI-General Adult - General Stated Complaint: N/V Time Seen by Provider: 05/02/19 11:51 Source: patient Allergies/Adverse Reactions: Patient Allergies Allergy/AdvReac Type Severity Reaction Status Date / Time No Known Allergies Allergy Verified 05/02/19 12:04 Home Medications: Home Medication List Medication Instructions Recorded Confirmed Last Taken Type Aspirin 81 mg PO DAILY 10/24/12 05/02/19 05/01/19 History LISINOpril [Prinivil] 20 mg PO BID 10/24/12 05/02/19 05/02/19 History Insulin Lispro [Humalog Kwikpen 100 unit SQ DIRECTED 05/22/17 05/02/19 05/01/19 History U-100] Insulin Detemir [Levemir] 18 unit SUBQ BID 04/28/19 05/02/19 05/01/19 History Amlodipine [Norvasc] 10 mg PO DAILY #30 tab 05/01/19 05/02/19 05/01/19 Rx Carvedilol [Coreg] 12.5 mg PO Q12HR #60 tab 05/01/19 05/02/19 05/02/19 Rx Furosemide [Lasix] 40 mg PO DAILY #60 tab 05/01/19 05/02/19 05/02/19 Rx - History of Present Illness -Gen Adult Nature of Presenting Problems: Pt is a 68 y/o M presents to the ED c/o of shaking in his hands, Dry heaves and chills since 1230am. He says he was discharged the day before treated for welling in feet and fluid on the lungs. He says he did take Lasix before coming to the ED. Location of Pain/Injury: reports: generalized (chills and shaking in his hands) Pain Radiation: reports: no radiation Severity: reports: mild Onset/Duration: reports: this morning Timing: reports: still present Context/Activities at Onset: reports: none Modifying Factors: improves with: nothing Similar Symptoms Previously?: No Recently seen or treated by another doctor?: Yes Review of Systems - Adult - REVIEW OF SYSTEMS - ADULT Constitutional: reports: chills. denies: fever Eyes: reports: no symptoms reported Ears, Nose, Mouth & Throat: denies: ear pain, sinus problem, throat pain Cardiovascular: reports: edema. denies: chest pain Respiratory: denies: cough, shortness of breath Gastrointestinal: reports: nausea, vomiting. denies: abdominal pain, diarrhea Genitourinary: denies: dysuria, discharge Musculoskeletal: denies: back pain, neck pain Integumentary: reports: no symptoms reported Neurological: denies: dizziness/vertigo, headache/migraines Psychiatric: reports: no symptoms reported Endocrine: reports: no symptoms reported Hematologic/Lymphatic: reports: no symptoms reported Allergic/Immunologic: reports: no symptoms reported All Other Systems: Reviewed and Negative Past History - Adult - PAST MEDICAL HISTORY-ADULT Review of Records: reports: Old Records Reviewed, Nursing Assessment Review, Medications Reviewed Major Childhood Illnesses: reports: denies history Cardiovascular: reports: HTN Respiratory: reports: denies history Gastrointestinal: reports: denies history Obstetrical/Gynecological: reports: denies history Genitourinary: reports: denies history Musculoskeletal: reports: denies history Neurological: reports: denies history Endocrine/Immune: reports: Diabetes Other Conditions: reports: denies history - PRIOR SURGERIES/PROCEDURES Surgical/Procedure History: reports: orthopedic (extremity) - IMMUNIZATION STATUS Childhood Immunizations: See Nurse Assessment Flu Vaccine: See Nurse Assessment - FAMILY HISTORY Family History: reviewed, not pertinent - SOCIAL HISTORY Smoking: non-smoker Substance Use: alcohol Alcohol Use Frequency: occasionally Living Situation: family Physical Exam-General - PHYSICAL EXAM-ADULT Initial Vital Signs Reviewed: Yes - CONSTITUTIONAL General Appearance: appears well, alert, no apparent distress - EYES Eyes: PERRL/EOMI, pink conjunctivae - HEAD, EARS, NOSE, MOUTH & THROAT HENMT: moist mucous membranes, normal ENT inspection, TMs normal - NECK Neck: non-tender, full range of motion, supple, normal inspection - RESPIRATORY Respiratory: no pleuratic chest pain, no respiratory distress, no accessory muscle use, crackles (bases) - CARDIOVASCULAR Cardiovascular: normal peripheral pulses, regular rate, rhythm - GASTROINTESTINAL (ABDOMEN) Abdominal Exam: normal bowel sounds, non tender, soft - MUSCULOSKELETAL Back Exam: normal inspection, no CVA tenderness, no vertebral tenderness Extremity: normal range of motion, non-tender, pedal edema (2+) - SKIN Integumentary: normal color, normal turgor, warm/dry - NEUROLOGIC Neurologic: grossly normal, no motor/sensory deficits - PSYCHIATRIC Psych/Mental Status: normal mood/affect, normal thought content, normal thought process, oriented x 3 Progress - PLAN OF CARE/RESULTS Result Diagrams: 05/02/19 12:00 05/02/19 12:00 - XRAY 1 XRAY Study: Chest Impression: Abnormal, See EMR Report (Signed EXAM: CHEST-PORTABLE 05/02/2019 HISTORY: cough TECHNIQUE: AP portable at 1212 COMMENT: There is cardiomegaly. Compared to 04/28/2019 the volume of pleural fluid bilaterally has diminished. There is some increased interstitial opacity bilaterally consistent with pulmonary edema. IMPRESSION: Improved pleural effusions, worsened pulmonary edema. Electronically signed by Sean Leo 05/02/2019 12:20 PM 05/02/19 1220 Interpreting Physician: Sean Leo MD Dictated Date/Time: 05/02/19 1219 cc: Calin Carter DO; Mikayla Ontiveros) - CONSULTS/PCP/HOSPITALIST Notification #1 *Consult/PCP/Hospitalist*: Hospitalist- Dr Steward Spoke with Sarah Time Discussed: 14:36 Reason/Comments: admission Consult Disposition: Will see in ED Departure - Departure Date of Disposition Decision: 05/02/19 Time of Disposition Decision: 16:21 DIAGNOSIS: Renal insufficiency CHF exacerbation Qualifiers: Heart failure type: systolic Qualified Code(s): I50.23 - Acute on chronic systolic (congestive) heart failure Disposition: ADMITTED INPATIENT 09 Certified Medical Emergency: Emergent Condition: Fair - Critical Care Note This patient required my direct & personal management of CC.: No Attestation - Physician/ FOREST Attestation Patient care was provided by Advanced Practice Provider:: No The physician spent face to face time with patient:: Yes Advanced Practice Provider documentation review:: Supervising physician onsite and consulted in the evaluation and care of this patient. The physician did have a face to face encounter with the patient. This chart was documented by the indicated scribe, (Augie Ga Scribe) and accurately reflects the services I performed and decisions made by , Calin Carter DO, as attested by the provider's signature.
[2019-05-02] MEDS ORDERED: ROBAXIN PO SCH (17:00)
[2019-05-02] MEDS ORDERED: APRESOLINE IV ONE (17:36)
[2019-05-02] MEDS: HUMULIN R SUBQ SCH ×2 (17:51→21:07)
[2019-05-02] MEDS ORDERED: APRESOLINE IV PRN (18:06)
--- NOTE | 2019-05-02 18:32 | HISTORY AND PHYSICAL ---
PRIMARY CARE PROVIDERS: NIDIA Segundo. CHIEF COMPLAINT: Tremors, chills, vomiting, shortness of breath and lower extremity swelling, along with complaints of headache and decreased concentration. HISTORY OF PRESENT ILLNESS: Mr. Az Nolasco is a 68-year-old male who was most recently here and discharged yesterday. He was treated for congestive heart failure that was acute on chronic, diastolic, and also pulmonary hypertension. Apparently he was discharged yesterday and then started having tremors through the day. Around 12:30 midnight, he started feeling cold all night. His had already fallen asleep, so he did not wake her up. He became very jittery. He had a fever of 99.7 and started throwing up and having shortness of breath, and started complaining of right back pain, muscular in nature, along with a headache and decreased concentration, and also with complaints of more lower extremity edema since his discharge. He comes in with these complaints. We are going to admit him and try to tune him up just a little more with his congestive heart failure. He has already had an abdominal pelvic CT back on the , which was just a few days ago. The result of that was cholelithiasis and nephrolithiasis, so we will continue to treat. PAST MEDICAL HISTORY: 1. Diabetes mellitus type 2. 2. Hypertension. 3. CKD stage 3. 4. Hypothyroidism. 5. Diastolic congestive heart failure. SURGICAL HISTORY: 1. Left shoulder surgery. 2. Vasectomy. SOCIAL HISTORY: Denies tobacco, alcohol or illicit drug use. Lives at home with his . FAMILY HISTORY: Mother had congestive heart failure, hypertension, diabetes. Father had stroke. ALLERGIES: No known drug allergies. HOME MEDICATIONS: 1. The new medication he has been started on since the discharge was Coreg 12.5 mg p.o. twice daily. 2. Norvasc 10 mg p.o. daily. 3. Lasix 40 mg p.o. daily. 4. Aspirin 81 mg p.o. daily. 5. Sliding-scale insulin. 6. Levemir 18 units subcutaneous twice a day. 7. Lisinopril 20 mg p.o. twice a day. REVIEW OF SYSTEMS: He was drowsy, but a 12-point review of systems was completed, and all were negative except for those mentioned above in the HPI. PHYSICAL EXAMINATION: VITAL SIGNS: Temperature 98.1, heart rate 80, respiratory rate 21, blood pressure 177/79, O2 saturation 93% on room air. GENERAL: Mr. Az Nolasco is a 68-year-old male. He is in no acute distress. He is able to answer questions appropriately. HEENT: Atraumatic, normocephalic. Pupils equal, round, reactive to light. Extraocular movements intact. Mucous membranes dry. NECK: Trachea midline. CARDIOVASCULAR: S1, S2. Regular rate and rhythm. No rubs, gallops, murmurs. He has 2 to 3+ lower extremity pitting edema, +2 dorsalis and radial pulses. Negative for JVD or carotid bruits. PULMONARY: Clear to auscultate, bilateral breath sounds. No accessory muscle use or work of breathing noted. GI: Soft, nontender, nondistended. Positive bowel sounds x4. EXTREMITIES: Decreased range of motion of the lower extremities, a little more weak, 4/5 strength. Has 5/5 strength of upper extremities with full range of motion of the upper extremities. NEUROLOGIC: A and O x3. Follows commands. Sensory is intact. He is a little sleepy. SKIN: Warm, dry, intact. LABORATORY DATA: White blood cells 7000, hemoglobin 12, hematocrit 38, platelet count 189. Sodium 136, potassium 4.0, BUN 38, creatinine 2.4, glucose 224, calcium 8.8. Bilirubin 0.37, AST 13, ALT 11. CK 104, troponin 50, proBNP 4720. Albumin 3.3. Urinalysis: 600 protein, 200 glucose, 10 ketones, small blood, 10 to 20 red blood cells. IMAGING: Chest x-ray: Improved pleural effusions with worsened pulmonary edema. ASSESSMENT AND PLAN: 1. Acute on chronic diastolic congestive heart failure. He was just discharged yesterday, but we will go ahead and tune him up a little more. We will do Lasix 40 mg IV twice a day. He received a 1-time dose while he was in the ER. Continue his Coreg. His echocardiogram he had on the showed a normal ejection fraction of 55% to 60%, but it did show a grade 2 diastolic dysfunction and pulmonary artery hypertension at 65 mmHg. 2. Suspected hospital acquired pneumonia based on low grade fever, chills and non-productive cough: Start antibiotics and follow up with CT scan of chest. 2. He has muscular pain in his back. Will add some Robaxin for about a day to see if that helps. 3. Chronic kidney disease stage 3. The actually called Dr. Cosme about coming here or going to urgent care, and he instructed her to come here. Will reconsult him. The patient actually appears to be stable, as his creatinine was 2.4 yesterday on discharge, and is 2.4 today. BUN is 38 today, and yesterday it was 38 as well. 4. Diabetes mellitus type 2. Will do pattern blood glucoses and sliding-scale insulin. 5. There is reported hypothyroidism, but he is not on anything for it, and it does not look like we have ever done a TSH or T4. So, we will add a TSH and a T4. 6. Deep venous thrombosis prophylaxis with sequential compression devices. Dictated by NIDIA Ruggiero for Saeid Barnes MD cc: NIDIA Ruggiero MD I agree with most components of history, physical, assessment and plan. A separate addendum has been dictated. GRICELDA
[2019-05-02] MEDS: DUONEB (A & A) INH PRN (19:35)
--- NOTE | 2019-05-02 20:46 | EKG Report ---
Test Performed on : 05/02/2019 6:22:27 PM Test Reason : rythm eval Blood Pressure : / mmHG Vent. Rate : 090 BPM Atrial Rate : 090 BPM P-R Int : 144 ms QRS Dur : 082 ms QT Int : 342 ms P-R-T Axes : 012 027 131 degrees QTc Int : 418 ms Normal sinus rhythm. Possible Left atrial enlargement ST & T wave abnormality, consider lateral ischemia Abnormal ECG When compared with ECG of 30-APR-2019 06:56, premature ventricular complexes. are no longer present Nonspecific T wave abnormality now evident in Anterior leads Unconfirmed Result
[2019-05-02] MEDS ORDERED: INSULIN PEN NEEDLES ONE (20:49)
[2019-05-02] MEDS: PRINIVIL PO SCH (20:54)
[2019-05-02] MEDS: MELATONIN PO SCH (20:54)
[2019-05-02] MEDS: LASIX IV SCH (20:54)
[2019-05-02] MEDS: LEVEMIR SUBQ SCH (20:54)
[2019-05-02] MEDS: COREG PO SCH (20:54)
[2019-05-02] MEDS: ZOSYN 2.25 GM in NS 50 ML IV SCH (20:56)
[2019-05-02] MEDS: ZYVOX 600 MG/D5W 600 MG/300 ML IVPB IV SCH (20:57)
--- NOTE | 2019-05-02 21:11 | HISTORY AND PHYSICAL ---
ADDENDUM: This is an addendum to history and physical dictated by the nurse practitioner I agree with most components of history, physical, assessment and plan dictated in nurse practitioner's note. In brief, Mr. Nolasco is a 68-year-old man with past medical history of diastolic congestive heart failure; pulmonary hypertension, with pulmonary artery systolic pressure of 65 mmHg; benign prostatic hypertrophy; obstructive sleep apnea; insulin-dependent diabetes mellitus type 2; essential hypertension; recent diagnosis of nephrotic syndrome. He was discharged from the hospital just 24 hours ago, when he was admitted for bilateral lower extremity edema and shortness of breath. He comes in with chief complaints of chills and subjective fever of about 12 hours duration. In the emergency room he was found to have temperature of 99.7 degrees, chills with rigors, hypertension, and CT scan finding of worsening pulmonary edema. Hospitalist team was consulted for further management. At the time of my evaluation the patient is in mild to moderate distress because of chills. He denies any chest pain. He does have shortness of breath. He denies any nausea, vomiting or abdominal pain. He complains of back pain, neck pain and shoulder pain. He continues to complain of bilateral lower extremity edema. He refuses to get the urine catheter. The patient's is at bedside. PHYSICAL EXAMINATION: VITAL SIGNS: Current temperature of 99.7 degrees, pulse 85, respiratory rate 18, blood pressure 180/80, saturating 95% on room air. GENERAL: On physical examination he is in moderate distress. HEENT: Oral cavity is moist. LUNGS: He has inspiratory crackles in bilateral infrascapular region. CARDIOVASCULAR: S1, S2 normal. No murmur or gallop. Regular. ABDOMEN: Soft, nontender. EXTREMITIES: He has bilateral lower extremity edema. NEUROLOGIC: He is alert. He is answering most questions appropriately. LABORATORY DATA: Labs suggestive of no leukocytosis; normocytic anemia; normal platelet count; kidney dysfunction; hyperglycemia; mildly elevated troponin; glucosuria; pyuria. Influenza screen was negative. DIAGNOSTIC DATA: Chest x-ray suggests worsened pulmonary edema. ASSESSMENT AND PLAN: 1. Fever, chills with bilateral lung infiltrates. Differential includes acute pulmonary edema due to acute diastolic congestive heart failure exacerbation versus hospital-acquired pneumonia, considering he has been recently in the hospital. I will get blood culture, urine streptococcus antigen, start the patient on intravenous linezolid and intravenous Zosyn. He has also been complaining of nonproductive cough, and I will treat him for suspected hospital- acquired pneumonia and follow up with blood culture and sputum culture results. 2. Suspected acute pulmonary edema, likely mild exacerbation of acute diastolic congestive heart failure. I will start him on intravenous Lasix. Continue home carvedilol and lisinopril, considering he has lower extremity edema. If his blood pressure tolerates in future I would consider discontinuing amlodipine. 3. Recent diagnosis of nephrotic syndrome. He has history of insulin-dependent diabetes mellitus and probably diabetic nephropathy. He is supposed to follow up with Dr. Cosme outpatient, and so we will consult him, considering family's request. Follow up with close BMP. 4. History of insulin-dependent diabetes mellitus. Continue home dose of detemir and sliding scale insulin. 5. Disposition: I will monitor patient on medical floor. I will also get CT scan thorax to rule out pneumonia. Plan of care discussed with the patient and his at bedside. Their questions have been satisfactorily answered. cc: Saeid Barnes MD
[2019-05-02] MEDS: NORCO-7.5 PO PRN (23:54)
[2019-05-03] MEDS: NORCO-7.5 PO PRN ×3 (06:20→20:43)
[2019-05-03] MEDS: HUMULIN R SUBQ SCH ×4 (06:32→20:47)
[2019-05-03] MEDS: DUONEB (A & A) INH PRN ×2 (07:55→16:10)
[2019-05-03 08:20] LABS: BASO# 0.01 X1000 (0.0-0.2); BASO% 0.2 % (0.0-0.8); HEMATOCRIT 33.8 % (42.0-52.0); HEMOGLOBIN 10.9 g/dL (14.0-18.0); LYMPH% 7.9 % (20.5-51.1); MCH 29.9 PG (27-31); MCHC 32.2 g/dL (33-37); MCV 92.6 FL (81-99); MONO# 0.47 X1000 (0.11-0.59); MONO% 7.4 % (1.7-9.3); MPV 11.1 FL (7.4-10.4); NEUT# 5.33 X1000 (1.4-6.5); NEUT% 84.5 % (42.2-75.2); PLT 152 X1000 (130-400); RBC 3.65 XMIL (4.7-6.1); RDW 13.1 % (11.5-14.5); WBC 6.31 X1000 (4.8-10.8)
[2019-05-03 08:40] LABS: ALB/GLOB RATIO 1.3; ALBUMIN 2.7 g/dL (3.5-5.0); CALCIUM 8.3 mg/dL (8.8-10.2); CREATININE 2.6 mg/dL (0.7-1.2); MAGNESIUM 1.6 mg/dL (1.5-2.7); POTASSIUM 3.8 mmol/L (3.5-5.1); TOTAL BILIRUBIN 0.26 mg/dL (0.20-1.00); TOTAL PROTEIN 4.8 g/dL (6.3-8.3)
[2019-05-03 08:51] LABS: FREE T4 1.47 ng/dL (0.93-1.70); TSH 0.2 uIUmL (0.27-4.20)
[2019-05-03] MEDS: ZYVOX 600 MG/D5W 600 MG/300 ML IVPB IV SCH ×2 (09:24→22:20)
--- NOTE | 2019-05-03 09:25 | Diag Imaging Result Doc PS360 ---
EXAM: CT THORAX W/O CONTRAST 05/02/2019 HISTORY: Rule out bilateal pneumonia. TECHNIQUE: This exam was performed using automated exposure control, adjustment of mA or kV according to patient size, and/or use of iterative reconstruction technique. COMMENT: The current study is compared with the previous examination of 04/29/2019. There are bilateral pleural effusions. This was also the case at the time the previous study. There is a small pericardial effusion which appears slightly smaller than on the previous study. There are small stones layering dependently in the gallbladder. There are ill-defined opacities in both lower lobes particularly in the superior segment of the right lower lobe. This is suggestive of pneumonia. There has been definite worsening since the previous examination. The regional skeleton is stable in appearance. IMPRESSION: Worsened right lower lobe pneumonia. Bilateral pleural effusions. Cholelithiasis. Electronically signed by Sean Leo 05/03/2019 9:23 AM
[2019-05-03] MEDS: ASPIRIN PO SCH (09:27)
[2019-05-03] MEDS: NORVASC PO SCH (09:27)
[2019-05-03] MEDS: COREG PO SCH ×2 (09:27→20:44)
[2019-05-03] MEDS: PRINIVIL PO SCH ×2 (09:28→20:44)
[2019-05-03] MEDS: LASIX IV SCH ×2 (09:28→20:44)
[2019-05-03] MEDS: LEVEMIR SUBQ SCH ×2 (09:28→20:41)
[2019-05-03] MEDS: LOVENOX SUBQ SCH (09:29)
[2019-05-03] MEDS: ZOSYN 2.25 GM in NS 50 ML IV SCH ×3 (12:54→20:51)
--- NOTE | 2019-05-03 15:52 | PROGRESS NOTE ---
DATE: 05/03/2019 INTERVAL HISTORY: No acute events overnight. Mr. Nolasco did not have any more fever episodes. He underwent CT scan of his chest, which detected right-sided lung pneumonia with dense consolidation. His vital signs were largely unremarkable. His hypertension is better controlled now. 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 However, he did not throw up. He is feeling better now. His family including are at bedside.Vital Signs: He has been afebrile. Temperature of 97.4 degrees, pulse 62, respiratory 20, blood pressure 130/67, saturating 98% on room air. General: He is not in acute distress. HEENT: Oral cavity is moist. Respiratory: He has bronchial breath sound with inspiratory crackles in right infrascapular region. Adequate air and air entry without wheeze, rhonchi, crackles in left lung atkinson. Cardiovascular: S1, S2 normal. No murmur, rub, or gallop. Abdomen: Soft nontender. Extremities: Bilateral lower extremity edema. Neurologic: He is alert and oriented x3. LABS: Input and output suggest he had 1.3 L of urine yesterday. Labs suggestive of normocytic anemia. Normal platelet count. He does have elevated BUN and creatinine in the setting of nephrotic syndrome. Microbiology; blood culture in lab, influenza screen was negative. IMAGING: Chest CT yesterday had detected worse right lower lobe pneumonia, bilateral pleural effusions, cholelithiasis. Electrocardiogram yesterday had lateral ST-T abnormality with normal sinus rhythm. ASSESSMENT AND PLAN: 1. Fevers and chills, likely due to right lung hospital-acquired pneumonia continue intravenous linezolid and intravenous Zosyn. Follow up final blood culture results and taper antibiotics accordingly. Follow up urine Streptococcus antigen. 2. Mild exacerbation with acute on chronic diastolic congestive heart failure with grade 2 diastolic dysfunction and ejection fraction of 50% to 60%, now with mild pulmonary edema and worsening and persistent to worse bilateral lower extremity edema. Continue current dose of intravenous Lasix. I will also keep him on his home carvedilol, amlodipine and lisinopril. 3. Recent diagnosis of nephrotic syndrome. Nephrology team has been consulted. This could be one of the reasons why he has lower extremity edema due to hypoalbuminemia. He also has history of insulin-dependent diabetes mellitus and probable diabetic nephropathy. Nephrology team has been consulted. 4. Insulin dependent diabetes mellitus type 2. Continue home dose of insulin glargine and sliding scale insulin. DISPOSITION: I will continue to monitor patient inside the hospital and give him at least 48 hours of intravenous antibiotics. Plan of care discussed with the patient and his at bedside. All of their questions have been satisfactorily answered. cc: Saeid Barnes MD
[2019-05-03] MEDS: MIRALAX PO SCH ×2 (20:40→20:52)
[2019-05-03] MEDS: MELATONIN PO SCH (20:43)
[2019-05-04] MEDS: ZOSYN 2.25 GM in NS 50 ML IV SCH ×3 (04:11→21:34)
[2019-05-04] MEDS: ZOFRAN IV PRN ×2 (04:16→21:43)
[2019-05-04] MEDS: HUMULIN R SUBQ SCH ×4 (06:21→21:37)
[2019-05-04 08:19] LABS: BASO# 0.02 X1000 (0.0-0.2); BASO% 0.3 % (0.0-0.8); HEMATOCRIT 35.6 % (42.0-52.0); HEMOGLOBIN 11.6 g/dL (14.0-18.0); IMM GRAN# 0.02 X1000 (0.0-0.04); IMM GRAN% 0.3 % (0.0-0.5); LYMPH# 0.56 X1000 (1.2-3.4); LYMPH% 8.6 % (20.5-51.1); MCH 30.3 PG (27-31); MCHC 32.6 g/dL (33-37); MONO# 0.38 X1000 (0.11-0.59); MONO% 5.8 % (1.7-9.3); MPV 11.5 FL (7.4-10.4); NEUT# 5.53 X1000 (1.4-6.5); PLT 163 X1000 (130-400); RBC 3.83 XMIL (4.7-6.1); RDW 12.9 % (11.5-14.5); WBC 6.51 X1000 (4.8-10.8)
[2019-05-04] MEDS: LEVEMIR SUBQ SCH ×2 (08:31→21:34)
[2019-05-04] MEDS: ZYVOX 600 MG/D5W 600 MG/300 ML IVPB IV SCH ×2 (08:46→21:33)
[2019-05-04 08:56] LABS: ALBUMIN 2.8 g/dL (3.5-5.0); CALCIUM 8.5 mg/dL (8.8-10.2); CREATININE 2.9 mg/dL (0.7-1.2); MAGNESIUM 1.7 mg/dL (1.5-2.7); POTASSIUM 3.8 mmol/L (3.5-5.1); TOTAL BILIRUBIN 0.23 mg/dL (0.20-1.00); TOTAL PROTEIN 5.5 g/dL (6.3-8.3)
[2019-05-04] MEDS: COREG PO SCH ×2 (10:12→21:35)
[2019-05-04] MEDS: PRINIVIL PO SCH ×2 (10:13→21:34)
[2019-05-04] MEDS: NORCO-7.5 PO PRN ×2 (10:13→18:13)
[2019-05-04] MEDS: ASPIRIN PO SCH (10:14)
[2019-05-04] MEDS: NORVASC PO SCH (10:14)
[2019-05-04 10:23] LABS: INR 1.01; PROTIME 13.4 Seconds (11.0-16.0)
--- NOTE | 2019-05-04 12:44 | NEPHROLOGY CONSULTATION ---
DATE: 05/04/2019 REASON FOR ADMISSION: Rigors with chills, low-grade temperature, increased work of breathing, and swelling. REASON FOR CONSULT: To please evaluate and treat. CONSULTING PHYSICIAN: NIDIA Mcgregor. HISTORY OF PRESENT ILLNESS: Mr. Nolasco is a 68-year-old white male who had previously been seen by our practice on his previous admission. He had a discharge date on 05/01/2019 and was readmitted on 05/02/2019. The patient has a chest x-ray that indicates worsening right lower lobe pneumonia with bilateral pleural effusions. The patient presented to the emergency room with noted fever and chills, temperature of 99.7 degrees in the emergency room. The patient indicates that he has continued increased work of breathing. He has been placed on antibiotics, renally dosed, of Zyvox and Zosyn. Since his admission, it is noted his BUN and creatinine remain elevated from 39 and 2.6 up to 43 and 2.9. He continues to receive Lasix 40 mg every 12 hours. The patient is noted to have congestive heart failure that is acute on chronic diastolic with pulmonary hypertension, positive lower extremity swelling though he states this is improved since his hospitalization. He denies any emesis, though he has had nausea with occasional dry heaves. No diarrhea stools present. Abdominal pelvic CT showed a history of cholelithiasis with nephrolithiasis. PAST MEDICAL HISTORY: Diabetes mellitus type 2, hypertension, chronic kidney disease stage 3. Baseline creatinine on last admission was 1.9, now in acute renal failure up to 2.7 on chronic kidney disease stage 3B. Hypothyroidism, diastolic congestive heart failure, history of pulmonary hypertension, lower extremity swelling, and anemia of chronic disease. PAST SURGICAL HISTORY: Left shoulder surgery and vasectomy. SOCIAL HISTORY: Denies tobacco, alcohol, or illicit drug use. Lives at home with his . FAMILY HISTORY: Mother had congestive heart failure, hypertension, and diabetes, father had a stroke, both . ALLERGIES: Listed as no known drug allergies. HOME MEDICATIONS: Coreg 12.5 mg b.i.d., Norvasc 10 mg daily, Lasix 40 mg daily, aspirin 81 mg daily, Levemir 18 units b.i.d., lisinopril 20 mg b.i.d., and sliding scale insulin. REVIEW OF SYSTEMS: The review of systems x10 with pertinent positives listed above in the HPI. VITAL SIGNS: His most recent vital signs: Temperature 98.2 degrees, blood pressure 131/66, heart rate 61, respirations 14. He is currently on room air, last recorded saturation 95%. He has had 0 recorded in, though it appears he has had several doses of antibiotics with 600 mL out to void. The patient has 300 mL in his urinal at the bedside. LABS: Sodium 137, potassium 3.8, chloride 96, CO2 of 29, BUN 43, creatinine 2.9, glucose is 90, anion gap 12, calcium 8.5, magnesium 1.7, albumin 2.8. His prothrombin time is 13.4 with an INR of 1.01, PTT 34, with a hemoglobin of 11. The patient had a previous urinalysis that indicated 8 grams of proteinuria on his previous admission with known diabetes and heart failure. PHYSICAL EXAMINATION: General: This is a 68-year-old white male resting quietly on the side of the bed. He is leaning over his table to improve his increased work of breathing. He remains on room air. HEENT: Normocephalic, atraumatic. Conjunctivae are pale pink. He has ABUNDIO. Mucous membranes are dry. Neck: Supple. Trachea midline. He has no evidence of JVD in the upright position. Cardiovascular: Slightly irregular rate and rhythm on the monitor. No murmur or gallop appreciated. He does have 2+ lower extremity edema. Lungs: The patient has bilateral inspiratory wheezing. No rhonchi or rales. Remains on room air. Abdomen: Soft, nontender, positive bowel sounds. Genitourinary: Not inspected. Patient is voiding adequate amount. Extremities: As mentioned above with positive 2+ lower extremity edema. Able to move all extremities well. Neurological: Alert and oriented x3. Able to follow commands. Integumentary: No rashes or lesions evident. ASSESSMENT AND PLAN: 1. CKD presumed. Patient's BUN and creatinine continue to elevate. He remains on Lasix. BUN of 43 with a creatinine of 2.9. He has had adequate urine output. We will continue to follow. 2. Proteinuria. Patient has a history of 8 grams of proteinuria. We had discussed possible biopsy on his previous admission secondary to his continued swelling, increased work of breathing, and elevated BUN and creatinine. We will schedule a renal biopsy today. We have discussed side effects and possible complications. Patient states understanding and is willing to proceed. We will await these results from [facility]. 3. Electrolytes and acid-base balance. These are acceptable. 4. Anemia. This is stable with a hemoglobin of 11. This will continue to be monitored every 4 hours during the day. 5. Congestive heart failure with bilateral pleural effusions with right lower lobe pneumonia. Patient remains on renal-dosed antibiotics and Lasix as indicated. No indications for changes at this time. I would like to thank you for allowing us to follow with this patient. Dictated by NIDIA Menendez for Victor Hugo Cosme MD Face to face encounter, data reviewed, discussed with Jose Cruz Lira on 05/04/19. I agree with the above assessment and plan of care. cc: NIDIA Menendez MD [facility]
--- NOTE | 2019-05-04 14:33 | Diag Imaging Result Doc PS360 ---
EXAM: CT RENAL BX, PERCUTANEOUS INDICATION: proteinuria TECHNIQUE: COMPARISON: 04/29/2019 FINDINGS: Risks, benefits, and alternatives were discussed with the patient and informed consent was obtained. The patient was placed in prone position and was prepped and draped in sterile fashion. Local anesthesia was achieved with 1% lidocaine solution. Using CT guidance, an 18-gauge coaxial biopsy needle system was used to obtain eight 1.3 cm core biopsies from the lower pole right renal cortex. There were no known complications. IMPRESSION: Technically successful CT-guided renal biopsy. Electronically signed by Edouard Mendoza 05/04/2019 2:31 PM
[2019-05-04] MEDS: MIRALAX PO SCH ×2 (15:30→21:35)
[2019-05-04] MEDS: LASIX IV SCH (15:32)
--- NOTE | 2019-05-04 17:47 | PROGRESS NOTE ---
DATE: 05/04/2019 INTERVAL HISTORY: No acute events overnight. He underwent biopsy of his kidneys on the right side. He continues to have episodes of chills. His and daughter are currently at bedside. Subjectively, he also complains of nighttime cough. VITAL SIGNS: Temperature 97.6 degrees, pulse 54, respiratory 16, blood pressure 112/63, saturating 94% on room air. PHYSICAL EXAMINATION: General: Not in acute distress. Oral cavity is moist. Lungs: Air entry bilaterally equal. No wheeze or rhonchi. Mild crackles, infrascapular region. However, air entry on the right infrascapular region has significantly improved. Cardiovascular: S1, S2 normal. No murmur or gallop. Abdomen: Soft, nontender. He has bilateral lower extremity edema. Input and output suggests 600 mL of urine output. He is alert and oriented x3. LABORATORY DATA: Suggestive of normocytic anemia with hemoglobin of 10.6, platelet of 163,000. He has increase in his BUN to 43, creatinine of 2.9. MICROBIOLOGY: Blood culture has not shown any growth to date. Influenza screen has been negative. He underwent renal biopsy, CT-guided, which was successful today. ASSESSMENT AND PLAN: 1. Fever and chills. Certainly the differential includes right lung hospital-acquired pneumonia. His thyroid function test was within acceptable range. I would expect his chills to get better since he has been on IV antibiotic for 48 hours. Despite that, he states in the morning time he had an episode of chills. Anxiety could also be a contributing factor. I will continue to monitor him. I do not have exact explanation at the moment. 2. Right lung hospital-acquired pneumonia considering his recent hospital admission. Continue intravenous linezolid and Zosyn. Culture data open, negative so far and change to oral antibiotics at the time of discharge. 3. Mild exacerbation of acute on chronic diastolic congestive heart failure with a grade 2 diastolic dysfunction and ejection fraction of 50 to 60 percent. His hypoalbuminemia and nephrotic syndrome are also contributing factors to his bilateral lower extremity edema. Change to oral Lasix. Continue home carvedilol amlodipine and lisinopril. 4. Recent diagnosis of nephrotic syndrome with more than 4 g proteinuria in 24 hours. He underwent a CT-guided renal biopsy. Appreciate Nephrology recommendations. 5. Insulin-dependent diabetes mellitus type 2 with hypoglycemia episode. I will change his insulin detemir frequency to at nighttime and keep him on sliding scale insulin. 6. Disposition. Mr. Nolasco has improved in terms of his right lower lobe pneumonia since presentation. I am anticipating discharge in the next 24 hours if no further nephrology plans have been made. Plan of care discussed with the patient and his at bedside as well as his daughter. All of their questions have been answered. cc: Saeid Barnes MD
[2019-05-04] MEDS: MELATONIN PO SCH (21:34)
[2019-05-04] MEDS: LOVENOX SUBQ SCH (21:36)
[2019-05-05] MEDS: PEPCID PO SCH ×2 (02:22→21:19)
[2019-05-05] MEDS: ZOSYN 2.25 GM in NS 50 ML IV SCH ×3 (04:53→21:18)
[2019-05-05] MEDS: ZOFRAN IV PRN (04:53)
[2019-05-05] MEDS: HUMULIN R SUBQ SCH ×4 (06:19→21:21)
[2019-05-05 07:39] LABS: BASO# 0.02 X1000 (0.0-0.2); BASO% 0.5 % (0.0-0.8); HEMATOCRIT 35.3 % (42.0-52.0); HEMOGLOBIN 11.6 g/dL (14.0-18.0); LYMPH# 0.65 X1000 (1.2-3.4); LYMPH% 14.8 % (20.5-51.1); MCH 30.3 PG (27-31); MCHC 32.9 g/dL (33-37); MCV 92.2 FL (81-99); MONO# 0.31 X1000 (0.11-0.59); MONO% 7.1 % (1.7-9.3); MPV 11.5 FL (7.4-10.4); NEUT% 77.6 % (42.2-75.2); PLT 164 X1000 (130-400); RBC 3.83 XMIL (4.7-6.1); RDW 12.6 % (11.5-14.5); WBC 4.38 X1000 (4.8-10.8)
[2019-05-05] MEDS: DUONEB (A & A) INH PRN ×4 (08:14→20:05)
[2019-05-05 08:16] LABS: ALBUMIN 2.5 g/dL (3.5-5.0); CALCIUM 7.8 mg/dL (8.8-10.2); CREATININE 3.2 mg/dL (0.7-1.2); MAGNESIUM 1.7 mg/dL (1.5-2.7); TOTAL BILIRUBIN 0.26 mg/dL (0.20-1.00); TOTAL PROTEIN 5.1 g/dL (6.3-8.3)
[2019-05-05] MEDS: NORVASC PO SCH (08:48)
[2019-05-05] MEDS: ZYVOX 600 MG/D5W 600 MG/300 ML IVPB IV SCH ×2 (08:48→21:18)
[2019-05-05] MEDS: PRINIVIL PO SCH ×2 (08:48→21:19)
[2019-05-05] MEDS: MIRALAX PO SCH ×2 (08:48→21:19)
[2019-05-05] MEDS: ASPIRIN PO SCH (08:48)
[2019-05-05] MEDS: COREG PO SCH ×2 (08:48→21:19)
[2019-05-05] MEDS: LASIX PO SCH (08:48)
--- NOTE | 2019-05-05 11:14 | NEPHROLOGY PROGRESS NOTE ---
DATE: 05/05/2019 SUBJECTIVE: Mr. Nolasco is resting quietly in bed. He tolerated his renal biopsy yesterday. States that he had no pain. No changes noted. He has had routine hemoglobins with the last at 11.6, returning to his baseline. OBJECTIVE: His most recent vital signs, temperature 97.5 degrees, blood pressure 122/61, heart rate 59, respirations 16. He is on room air. Last recorded saturation 96%. He has had 400 in and 800 out to void. LABORATORY DATA: Sodium 133, potassium is 4, chloride 95, CO2 27, BUN 46, creatinine is 3.2, glucose is 191. His anion gap is 11, his calcium is 7.8, magnesium of 1.7, albumin of 2.5. The patient's white count is 4.38, hemoglobin 11.6, hematocrit 35.3, with a platelet count of 164,000. PHYSICAL EXAMINATION: General: This is a 68-year-old white male resting quietly in bed. He appears chronically ill, though no acute distress. Skin: Warm and dry. HEENT: Normocephalic, atraumatic. Conjunctiva is pink. He has ABUNDIO. Mucous membranes are dry. Neck: Supple. Trachea midline. No evidence of JVD. Cardiovascular: Regular rate and rhythm. He is without murmur or gallop. He has had isolated PACs on his telemetry. He does have 2+ lower extremity edema. Lungs: Have bilateral inspiratory wheezes. No crackles. He remains on room air. Abdomen: Soft, nontender, positive bowel sounds. Back: Inspected. The patient is dry and intact with a Band-Aid over his insertion site for his renal biopsy. No tenderness upon light palpation. Genitourinary: Not inspected. Adequate urine output to void. Extremities: As mentioned. Integumentary: No rashes or lesions evident. Neurological: Alert and oriented x3. ASSESSMENT AND PLAN: 1. MANDA overlying CKD. Likely related to prerenal factors. Continue current care with diuretics. 2. Proteinuria. History of 8 g of proteinuria. The patient had a renal biopsy yesterday. We will await these results. Continues with lower extremity swelling. Tolerated biopsy well. 3. Electrolytes and acid-base balance. These are acceptable. 4. Anemia. Patient's hemoglobin remains at 11.6 as of yesterday prior to his procedure. 5. Congestive heart failure with bilateral pleural effusions with right lower lobe pneumonia. This continues to be followed by the primary care. He remains on renal dosed antibiotics. I would like to thank you for allowing us to follow with this patient. Dictated by NIDIA Menendez for Victor Hugo Cosme MD Face to face encounter, data reviewed, discussed with Jose Cruz Lira on 05/05/19. I agree with the above assessment and plan of care. cc: NIDIA Menendez MD [facility]
--- NOTE | 2019-05-05 18:14 | PROGRESS NOTE ---
DATE: 05/05/2019 SUBJECTIVE: The patient is resting comfortably in bed. The patient complains of persistent episodes of nausea. He reports that this has been going on for several months. OBJECTIVE: Vital signs: Temperature 97.8 degrees, blood pressure 115/61, heart rate 60, respirations 20, O2 saturation 97% on room air. Intake 400 mL. Urine output 1.2 L.General: This is an elderly male lying in bed in no acute distress. Heart: S1, S2 normal. Regular rate and rhythm. Lungs: Equal air entry bilaterally. No wheezing. No rales. No rhonchi. Abdomen: Positive bowel sounds. Soft, nontender, nondistended. Extremities: Edema 2+ bilaterally. Neurologic: The patient is alert and oriented x3. LABORATORY DATA: White blood cell count 4.3, hemoglobin 10, hematocrit 35, platelets 164,000. Sodium 133, potassium 4, chloride 95, CO2 is 27, BUN 46, creatinine 3.2, glucose 191. ASSESSMENT AND PLAN: 1. Right lower lobe pneumonia. Continue on the current antibiotic regimen. Continue with bronchodilator therapy and incentive spirometry. 2. Acute kidney injury on chronic kidney disease. The patient had a renal biopsy yesterday. We will await the pathology report. Further recommendations to follow from Dr. Cosme. 3. Acute on chronic diastolic congestive heart failure exacerbation. The patient is in a negative fluid balance. We will continue with the current regimen. 4. Insulin-dependent diabetes mellitus, stable. Continue on Levemir plus sliding scale insulin. 5. Nausea with intermittent vomiting. We will check an abdominal x-ray. The patient has not had a bowel movement since admission. 6. Deep vein thrombosis prophylaxis. Continue on Lovenox. 7. We will consult Physical Therapy. 8. Disposition. The patient and his family were updated on the plan of care. cc: Yohana Iglesias MD [facility]
--- NOTE | 2019-05-05 18:17 | Diag Imaging Result Doc PS360 ---
FLAT/UPRIGHT ABD/1 VIEW CHEST - 05/05/2019 INDICATION: pneumonia and constipation TECHNIQUE: COMPARISON: 05/02/2019 FINDINGS: Stable cardiomegaly and pulmonary vascular congestion. There is some moderate infiltrate in the right lung base. No pneumothorax or pleural effusion. No sign of diffuse edema. No bowel obstruction or free air. No significant constipation. IMPRESSION: 1. Right basilar infiltrate compatible with edema or pneumonia. 2. Cardiomegaly and pulmonary vascular congestion. Electronically signed by Armani Priest 05/05/2019 6:15 PM
[2019-05-05] MEDS: LOVENOX SUBQ SCH (18:23)
[2019-05-05] MEDS: NORCO-7.5 PO PRN (18:28)
[2019-05-05] MEDS: MELATONIN PO SCH (21:19)
[2019-05-05] MEDS: LEVEMIR SUBQ SCH (21:20)
[2019-05-05] MEDS: DULCOLAX PR SCH (21:27)
[2019-05-06] MEDS: ZOSYN 2.25 GM in NS 50 ML IV SCH ×3 (03:34→21:59)
[2019-05-06] MEDS: NORCO-7.5 PO PRN ×2 (03:36→18:19)
[2019-05-06] MEDS: HUMULIN R SUBQ SCH ×4 (06:16→22:00)
[2019-05-06 07:56] LABS: BASO# 0.01 X1000 (0.0-0.2); BASO% 0.3 % (0.0-0.8); EOS# 0.01 X1000 (0.0-0.7); EOS% 0.3 % (0.0-10.0); HEMATOCRIT 34.8 % (42.0-52.0); HEMOGLOBIN 11.3 g/dL (14.0-18.0); LYMPH# 0.67 X1000 (1.2-3.4); MCHC 32.5 g/dL (33-37); MCV 92.3 FL (81-99); MONO# 0.38 X1000 (0.11-0.59); MONO% 10.2 % (1.7-9.3); MPV 10.9 FL (7.4-10.4); NEUT# 2.65 X1000 (1.4-6.5); NEUT% 71.2 % (42.2-75.2); PLT 151 X1000 (130-400); RBC 3.77 XMIL (4.7-6.1); RDW 12.4 % (11.5-14.5); WBC 3.72 X1000 (4.8-10.8)
[2019-05-06] MEDS: DUONEB (A & A) INH PRN ×4 (08:03→23:24)
[2019-05-06 08:18] LABS: ALB/GLOB RATIO 0.9; ALBUMIN 2.4 g/dL (3.5-5.0); CREATININE 3.4 mg/dL (0.7-1.2); MAGNESIUM 1.9 mg/dL (1.5-2.7); POTASSIUM 3.8 mmol/L (3.5-5.1); TOTAL BILIRUBIN 0.2 mg/dL (0.20-1.00)
[2019-05-06] MEDS: ZOFRAN IV PRN ×2 (09:04→18:20)
[2019-05-06] MEDS: ZYVOX 600 MG/D5W 600 MG/300 ML IVPB IV SCH ×2 (09:04→21:59)
[2019-05-06] MEDS: NORVASC PO SCH (09:04)
[2019-05-06] MEDS: MIRALAX PO SCH ×2 (09:04→22:00)
[2019-05-06] MEDS: ASPIRIN PO SCH (09:05)
[2019-05-06] MEDS: PRINIVIL PO SCH ×2 (09:05→22:00)
[2019-05-06] MEDS: LASIX PO SCH (09:05)
[2019-05-06] MEDS: COREG PO SCH ×2 (09:05→21:59)
--- NOTE | 2019-05-06 11:56 | NEPHROLOGY PROGRESS NOTE ---
DATE: 05/06/2019 TIME SEEN: 0730. SUBJECTIVE: Mr. Nolasco is sitting up in bed. He is having his labs drawn. He states that he has had a better night last night, feeling better in the last 2 days. He has no complaints of pain or discomfort. OBJECTIVE: Vital Signs: Temperature 98 degrees, blood pressure 132/66, heart rate 59, respirations 18. He is on room air. Last recorded saturation 99%. He has had 1200 in, 500 out to void. Labs: Sodium is 134, his potassium is 3.8, chloride 95, CO2 is 28, BUN is 45, with a creatinine of 3.4, glucose of 102. The patient has an anion gap of 11. His calcium is 8, magnesium of 1.9 with an albumin of 2.4. His white count 3.72, hemoglobin is 11.3, hematocrit is 34.8 with a platelet count of 151,000. PHYSICAL EXAMINATION: General: This is a 68-year-old white male sitting up in bed. He appears in no acute distress. Skin: Warm and dry. HEENT: Normocephalic, atraumatic. Conjunctiva is pale. He has ABUNDIO. Mucous membranes are dry. Neck: Supple. Trachea midline. There is no evidence of JVD. Cardiovascular: Regular rate and rhythm. He is without murmur or gallop. 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 2+ lower extremity edema. Lungs: Clear to auscultation bilaterally. Equal excursion. He remains on room air. Abdomen: Soft, nontender. Positive bowel sounds. Back is inspected. The Band-Aid has been removed. No redness or drainage noted. No pain over the renal biopsy site. Genitourinary: Not inspected. Adequate urine output to void. Extremities: As mentioned above, 2+ edema. No clubbing or cyanosis. Neurological: He is alert and oriented x3. ASSESSMENT AND PLAN: 1. Acute kidney injury overlying chronic kidney disease. The patient has prerenal factors. Continues with diuretics. Adequate urine output though low. We will continue to monitor. 2. Proteinuria with a history of 8 g proteinuria. Patient had a renal biopsy 2 days ago. We are awaiting results from the [facility] on a preliminary basis, hopefully today. 3. Electrolytes and acid-base balance. These have been acceptable. 4. Anemia. This is low but stable. 5. Congestive heart failure with bilateral pleural effusions associated with right lower lobe pneumonia. Patient remains on renal dosed antibiotics. I would to thank you for allowing us to follow with this patient. 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 Severe and high risk for progression. Focus on BP and glycemic targets. Will likely progress to ESKD. Discussed with the patient and the by phone. rg Dictated by NIDIA Menendez for Victor Hugo Cosme MD Face to face encounter, data reviewed, discussed with Jose Cruz Lira on 05/06/19. I agree with the above assessment and plan of care. rg cc: NIDIA Menendez MD [facility]
[2019-05-06] MEDS: LOVENOX SUBQ SCH (17:11)
--- NOTE | 2019-05-06 20:26 | PROGRESS NOTE ---
DATE: 05/06/2019 SUBJECTIVE: The patient is resting comfortably in bed. He states that he is still having periods of nausea, but no vomiting. He states that he has no appetite. He did walk with physical therapy up and down the hallway yesterday. OBJECTIVE: Vital Signs: Temperature 98.1 degrees, blood pressure 130/65, heart rate 55, respirations 20, O2 saturation 98% on room air. General: This is a chronically ill-appearing elderly male lying in bed in no acute distress. Heart: S1, S2. Normal. Bradycardic. Lungs: Equal air entry bilaterally. No wheezing. No rales. Abdomen: Positive bowel sounds. Soft, nontender, nondistended. Extremities: 2+ edema bilaterally. Neurologic: The patient is alert and oriented x4. LABS: White blood cell count 3.7, hemoglobin 11, hematocrit 34, platelets 151,000. Sodium 134, potassium 3.8, chloride 95, CO2 28, BUN 45, creatinine 3.4, glucose 102. ProBNP 3975. Albumin 2.4, total protein 5, IgG 378. ASSESSMENT AND PLAN: 1. Right basilar pneumonia. Unchanged. The patient is on broad-spectrum antibiotic therapy. So far, the blood cultures are negative. The procalcitonin level is currently pending. We will consult with Infectious Disease. 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 We will defer to Infectious Disease regarding immunoglobulin infusion. 3. Acute kidney injury on chronic kidney disease. Unchanged. The renal biopsy results are pending. 4. Acute on chronic diastolic congestive heart failure. The patient remains on diuretic therapy. 5. Insulin-dependent diabetes mellitus. Stable. Continue on the current insulin regimen. 6. Hypertension. Improved. Continue on the current antihypertensive regimen. 7. Asymptomatic bradycardia. Aware. The patient is on Coreg. 8. Persistent nausea. Will order a gastric emptying study to be done tomorrow. 9. Deep vein thrombosis prophylaxis. Continue on Lovenox. cc: Yohana Iglesias MD [facility]
[2019-05-06] MEDS: DULCOLAX PR SCH (21:59)
[2019-05-06] MEDS: PEPCID PO SCH (22:00)
[2019-05-06] MEDS: LEVEMIR SUBQ SCH (22:00)
[2019-05-06] MEDS: MELATONIN PO SCH (22:00)
[2019-05-07] MEDS: ZOSYN 2.25 GM in NS 50 ML IV SCH ×2 (04:18→11:47)
[2019-05-07] MEDS: HUMULIN R SUBQ SCH ×4 (06:18→17:04)
[2019-05-07] MEDS: ZOFRAN IV PRN (07:38)
[2019-05-07 08:08] LABS: HEMOGLOBIN A1C 7.3 % (4.8-6.0)
[2019-05-07 08:10] LABS: BASO# 0.01 X1000 (0.0-0.2); BASO% 0.2 % (0.0-0.8); EOS# 0.01 X1000 (0.0-0.7); EOS% 0.2 % (0.0-10.0); HEMATOCRIT 39.3 % (42.0-52.0); LYMPH# 0.46 X1000 (1.2-3.4); LYMPH% 9.9 % (20.5-51.1); MCHC 33.1 g/dL (33-37); MCV 90.8 FL (81-99); MONO# 0.25 X1000 (0.11-0.59); MONO% 5.4 % (1.7-9.3); MPV 11.3 FL (7.4-10.4); NEUT# 3.93 X1000 (1.4-6.5); NEUT% 84.3 % (42.2-75.2); PLT 165 X1000 (130-400); RBC 4.33 XMIL (4.7-6.1); RDW 12.6 % (11.5-14.5); WBC 4.66 X1000 (4.8-10.8)
[2019-05-07 08:31] LABS: ALBUMIN 2.9 g/dL (3.5-5.0); CALCIUM 8.3 mg/dL (8.8-10.2); CREATININE 3.2 mg/dL (0.7-1.2); MAGNESIUM 1.9 mg/dL (1.5-2.7); TOTAL BILIRUBIN 0.33 mg/dL (0.20-1.00); TOTAL PROTEIN 5.7 g/dL (6.3-8.3)
[2019-05-07] MEDS: ZYVOX 600 MG/D5W 600 MG/300 ML IVPB IV SCH (09:57)
[2019-05-07] MEDS: LASIX PO SCH (09:59)
[2019-05-07] MEDS: PRINIVIL PO SCH ×2 (09:59→19:58)
[2019-05-07] MEDS: MIRALAX PO SCH ×2 (09:59→19:58)
[2019-05-07] MEDS: ASPIRIN PO SCH (09:59)
[2019-05-07] MEDS: COREG PO SCH ×2 (09:59→19:58)
[2019-05-07] MEDS: NORVASC PO SCH (09:59)
[2019-05-07] MEDS ORDERED: ZOFRAN IV PRN (11:45)
--- NOTE | 2019-05-07 14:35 | PROGRESS NOTE ---
DATE: 05/07/2019 SUBJECTIVE: The patient is sitting up in a chair. He states that he feels okay today. No acute events noted overnight. OBJECTIVE: Vital Signs: Temperature 98 degrees, blood pressure 153/71, heart rate 65, respirations 18, and O2 saturations 100% on room air. General: This is a chronically ill- appearing male lying in bed in no acute distress. Heart: S1, S2 normal. Regular rate and rhythm. Lungs: Equal air entry bilaterally. No wheezing. No rales. Abdomen: Positive bowel sounds. Soft, nontender, and nondistended. Extremities: 2+ edema. Neurologic: The patient is alert and oriented x4. LABORATORY: White blood cell count 4.6, hemoglobin 13, hematocrit 39, and platelets 165,000. Sodium 133, potassium 4, chloride 93, CO2 20, BUN 41, creatinine 3.2, and glucose 208. Hemoglobin A1c 7.3. ASSESSMENT AND PLAN: 1. Right basilar pneumonia. The patient remains on antibiotics. He currently has normal oxygen saturations on room air. Continue with incentive spirometry and DuoNeb's. 2. Immunoglobulin deficiency. IVIG to be given today. 3. Chronic kidney disease. Stable. Continue to monitor closely. Management as per the vending machine filler. 4. Hyponatremia. Stable. 5. Poorly controlled insulin-dependent diabetes mellitus. We will adjust the patient's insulin regimen. 6. Intermittent nausea. The patient is scheduled for a gastric emptying study to be done today. 7. Hypertension. Continue on the current antihypertensive regimen. 8. Deep vein thrombosis prophylaxis. Continue on Lovenox. 9. Continue with physical therapy. cc: Yohana Iglesias MD [facility]
--- NOTE | 2019-05-07 14:52 | Diag Imaging Result Doc PS360 ---
EXAM: GASTRIC EMPTYING HISTORY: gastroparesis TECHNIQUE: Nuclear medicine gastric emptying exam COMPARISON: None. FINDINGS: 467 uCi sulfur colloid in neck ingested. Imaging for 90 minutes. T1 half is calculated to be only 36 minutes. IMPRESSION: Very quick gastric emptying. Electronically signed by Kev Berry 05/07/2019 2:50 PM
[2019-05-07] MEDS ORDERED: GAMUNEX-C 10% IV ONE (17:00)
[2019-05-07] MEDS: MERREM 1 GM in NS 50 ML IV SCH (18:53)
--- NOTE | 2019-05-07 19:18 | NEPHROLOGY PROGRESS NOTE ---
DATE: 05/07/2019 TIME SEEN: 0715 hours. SUBJECTIVE: Mr. Nolasco states he has been throwing up most of the night or attempting to throw up, with chronic dry heaves. He has received Zofran every 4 hours throughout the night. He has complaints of abdominal discomfort. OBJECTIVE VITAL SIGNS: His most recent temperature is 97.9 degrees, blood pressure 166/69, heart rate 71, respirations 14. He is on room air. Last recorded saturation 100%. He has had 400 in. He has had zero recorded out, though he states that he has been voiding in the bathroom. OBJECTIVE LABORATORY DATA: Sodium 133, potassium 4, chloride is 93, CO2 is 20, BUN 41, creatinine 3.2, glucose 208. His anion gap is 20, calcium 8.3, magnesium 1.9, albumin 2.9. White count 4.66, hemoglobin 13, hematocrit 39.3 with a platelet count of 165,000. OBJECTIVE: This is a 68-year-old white male. He is currently lying mostly supine in bed. He complains of some dizziness with the head of the bed elevated. His skin is warm and dry.HEENT: Normocephalic, atraumatic. Conjunctiva is pale. He has ABUNDIO. Mucous membranes are dry. Neck is supple. Trachea midline. Trace evidence of JVD after being elevated to a 30- degree angle. He does appear to have some hepatojugular reflux present. Cardiovascular: He is regular rate and rhythm. He has no murmur or gallop. His lungs are clear to auscultation bilaterally. Equal excursion. He is on room air. Abdomen is soft, nontender. Positive bowel sounds. Genitourinary: Not inspected. The patient has been voiding adequate amount. Extremities: Continues with 2 to 3+ edema up into the midthigh/hip area. Genitourinary not inspected. Neurological: Alert and oriented x3. ASSESSMENT AND PLAN: 1. Acute kidney injury overlying chronic kidney disease. The patient's BUN and creatinine have remained elevated. We will currently hold his Lasix this a.m. He is to continue on 1 L fluid restriction. We will increase his Zofran to 8 mg q.4 hours and re-evaluate in the a.m. 2. Electrolytes and acid-base balance. These remain stable. 3. Anemia. This remains stable. 4. Congestive heart failure with pneumonia. The patient remains on renal-dosed antibiotics. We would like to thank you for allowing us to follow with this patient. Dictated by NIDIA Menendez for Victor Hugo Cosme MD Face to face encounter, data reviewed, discussed with with Jose Cruz Lira on 05/07/19. I agree with the above assessment and plan of care. cc: NIDIA Menendez MD [facility]
[2019-05-07] MEDS: NORCO-7.5 PO PRN (19:57)
[2019-05-07] MEDS: PEPCID PO SCH (19:58)
[2019-05-07] MEDS: MELATONIN PO SCH (19:58)
[2019-05-07] MEDS: LOVENOX SUBQ SCH (19:59)
[2019-05-07] MEDS: LEVEMIR SUBQ SCH (21:28)
--- NOTE | 2019-05-08 04:50 | INFECTIOUS DISEASE CONSULT REP ---
DATE: 05/07/2019 CONCLUSION: The patient has a right lower lobe pneumonia which has been refractory to treatment with Zyvox and Zosyn. The patient also has an immunoglobulin deficiency. RECOMMENDATIONS: I have discontinued Zyvox and Zosyn and placed the patient on meropenem. Also I have ordered two doses of IVIG of 20 grams each, one to be given tonight and the other one to be given tomorrow morning. Approximately 8 weeks from when the patient has received his IVIG infusions, I will repeat his immunoglobulin G level and, if it has gotten to be low again, then the patient may be a candidate for monthly IVIG. DISCUSSION: The patient tells me that he has been coughing and short of breath for the past 3 to 4 weeks. He is not bringing up any sputum. He had recently been in the hospital prior to coming to [facility] this time. His studies thus far show a CBC with a white count of 4660, hemoglobin 13, platelet count 165,000. Creatinine is 3.2. GFR is 19. Liver function studies are normal. Procalcitonin is 0.19 which translates into that the patient is unlikely to have pneumonia, but I feel like he does have a right lower lobe pneumonia. IgG is 378, IgA is 211. Blood cultures and influenza screen are negative. CT scan of the chest shows a right lower lobe pneumonia. PAST MEDICAL HISTORY/REVIEW OF SYSTEMS: Eyes/Ears: He has decreased hearing but his vision is good. Neck: No stiffness. GI: The patient is anorectic and he has not had a stool in 2 weeks. : No dysuria or flank pain. Cardiac: No chest pain or palpitations. Bones/Joints/Muscles: No swollen joints or muscle aching. Neurologic: No seizures. No loss of motor or sensory function. PREVIOUS HOSPITALIZATIONS AND OPERATIONS: He has had surgery for a torn right rotator cuff. He has had surgery with by lithotripsy for renal calculi. The patient also was in the hospital because his diabetes was under poor control. MEDICAL DISEASES: Positive for diabetes mellitus, hypertension, hyperthyroidism, and renal calculi. INFECTIOUS DISEASE HISTORY: Positive for pneumonia, urinary tract infection and bronchitis. FAMILY HISTORY: Positive for diabetes mellitus, hypertension and stroke. SOCIAL HISTORY: [place] He is . He has cats for pets. He occasionally drinks alcoholic beverages. He does not smoke cigarettes or abuse drugs. ALLERGIES: He has no known drug allergies. HOME MEDICATIONS: Amlodipine, carvedilol, Lasix, insulin and lisinopril. PHYSICAL EXAMINATION: Vital Signs: Temperature is 98 degrees, pulse 65, respirations 16, blood pressure 153/71. He is 6 feet tall and weighs 194 pounds. General: This is an obese, elderly male. He is in no acute distress. HEENT: He can hear my spoken words and see near objects. He does not have any white coating of his tongue. His sinuses are not tender. Neck: No meningismus. Lungs: Clear to auscultation. Cardiovascular: Heart rate is regular. Abdomen: Soft and nontender. Neurologic: The patient is slightly lethargic. He can move his extremities. There is no tremor. His memory as regarding his medical history was slightly diminished. Integument: No rash noted. Thank you for the consult. cc: Alexy Ortega MD
[2019-05-08] MEDS: DULCOLAX PR SCH ×2 (05:27→21:56)
[2019-05-08] MEDS: COREG PO SCH ×3 (05:27→21:53)
[2019-05-08] MEDS: MELATONIN PO SCH ×2 (05:28→21:54)
[2019-05-08] MEDS: HUMULIN R SUBQ SCH ×5 (05:28→21:55)
[2019-05-08] MEDS: PRINIVIL PO SCH ×3 (05:29→21:53)
[2019-05-08] MEDS: MIRALAX PO SCH ×3 (05:29→21:54)
[2019-05-08] MEDS: PEPCID PO SCH (05:29)
[2019-05-08] MEDS: MERREM 1 GM in NS 50 ML IV SCH ×2 (05:30→17:13)
[2019-05-08] MEDS ORDERED: DUONEB (A & A) ONE (07:16)
[2019-05-08 08:07] LABS: BASO# 0.02 X1000 (0.0-0.2); BASO% 0.5 % (0.0-0.8); EOS# 0.01 X1000 (0.0-0.7); EOS% 0.2 % (0.0-10.0); HEMATOCRIT 35.6 % (42.0-52.0); HEMOGLOBIN 11.9 g/dL (14.0-18.0); IMM GRAN# 0.04 X1000 (0.0-0.04); LYMPH# 0.48 X1000 (1.2-3.4); LYMPH% 11.4 % (20.5-51.1); MCH 30.2 PG (27-31); MCHC 33.4 g/dL (33-37); MCV 90.4 FL (81-99); MONO# 0.32 X1000 (0.11-0.59); MONO% 7.6 % (1.7-9.3); MPV 10.9 FL (7.4-10.4); NEUT# 3.33 X1000 (1.4-6.5); NEUT% 79.3 % (42.2-75.2); PLT 132 X1000 (130-400); RBC 3.94 XMIL (4.7-6.1); RDW 12.2 % (11.5-14.5)
[2019-05-08 08:17] LABS: ALB/GLOB RATIO 0.8; ALBUMIN 2.3 g/dL (3.5-5.0); CALCIUM 7.8 mg/dL (8.8-10.2); CREATININE 3.1 mg/dL (0.7-1.2); MAGNESIUM 1.9 mg/dL (1.5-2.7); POTASSIUM 3.9 mmol/L (3.5-5.1); TOTAL BILIRUBIN 0.24 mg/dL (0.20-1.00); TOTAL PROTEIN 5.2 g/dL (6.3-8.3)
[2019-05-08] MEDS: GAMUNEX-C 10% IV ONE ×2 (09:36→09:37)
[2019-05-08] MEDS: ASPIRIN PO SCH (09:38)
[2019-05-08] MEDS: NORVASC PO SCH (09:38)
[2019-05-08] MEDS: LEVEMIR SUBQ SCH ×2 (09:39→09:40)
[2019-05-08] MEDS ORDERED: PROTONIX IV ONE (11:58)
[2019-05-08] MEDS ORDERED: COMPAZINE IV PRN (11:59)
[2019-05-08] MEDS ORDERED: SODIUM CHLORIDE 0.9% INJ SCH (12:00)
[2019-05-08] MEDS ORDERED: INSULIN PEN NEEDLES ONE (12:22)
[2019-05-08] MEDS: SODIUM CHLORIDE 0.9% INJ SCH (13:21)
--- NOTE | 2019-05-08 13:28 | Diag Imaging Result Doc PS360 ---
US ABDOMEN-COMPLETE - 05/08/2019 INDICATION: abdominal pain/nausea COMPARISON: 04/29/2019, 05/23/2017 FINDINGS: There are numerous small gallstones in the gallbladder. No gallbladder distention or inflammation. The kidneys are diffusely hyperechoic compatible with chronic medical renal disease. No hydronephrosis. No perinephric fluid collections. There is some trace subhepatic ascites. The pancreas is obscured. The liver and spleen are normal. Common bile duct measures 3 mm. Aorta, IVC, and main portal vein are patent. There is a trace right pleural effusion. IMPRESSION: 1. Hyperechoic kidneys compatible with chronic medical renal disease. No acute disease or complication. 2. Numerous gallstones in the gallbladder. No evidence of gallbladder inflammation. Electronically signed by Armani Priest 05/08/2019 1:26 PM
[2019-05-08] MEDS: NORCO-7.5 PO PRN (15:20)
--- NOTE | 2019-05-08 16:56 | GASTROENTEROLOGY CONSULTATION ---
DATE: 05/08/2019 REASON FOR CONSULTATION: GI bleed. HISTORY OF PRESENT ILLNESS: Mr. Nolasco is a 68-year-old male who has been in the hospital since 05/02/2019. Mr. Nolasco was recently admitted to the hospital on 04/29 and he was he was discharged on 05/01. The patient was back in the hospital on 05/02 with complaints of nausea, vomiting, temperature, chills and fever. On admission, it was noted that the patient had pneumonia. The patient has a history of congestive heart failure, pulmonary hypertension, benign prostatic hypertrophy, obstructive sleep apnea, insulin-dependent diabetes type 2, hypertension, and recent diagnosis of nephrotic syndrome. The patient's CT on 05/02 showed worsened right lower lobe pneumonia, bilateral pleural effusion and cholelithiasis. The patient had a renal biopsy with CT done on 05/04. Pathology report is pending. His gastric emptying study on 05/07 has shown that he had a very quick gastric emptying. The patient's abdominal ultrasound done today showed hyperechoic kidneys compatible with chronic medical renal disease. No acute disease or complication. Numerous gallstones in the gallbladder. No evidence of gallbladder inflammation. The patient has denied any abdominal pain, but complained of nausea and vomiting, back pain, neck pain, shoulder and weakness in the lower extremities. The patient has got +1 pitting edema in the lower extremities. PAST MEDICAL HISTORY: Type 2 diabetes, chronic kidney disease, hypertension, CHF, hypothyroidism, anemia of the chronic disease, chronic kidney disease PAST SURGICAL HISTORY: Left shoulder surgery, left rotator cuff surgery, and vasectomy. SOCIAL HISTORY: The patient is single, has a girlfriend. He denies tobacco use or illicit drug use, but he has occasional alcohol. FAMILY HISTORY: His mother had congestive heart failure and diabetes and father had stroke. ALLERGIES: The patient has no known drug allergies. HOME MEDICATIONS: Lisinopril 20 mg twice a day, aspirin 81 mg daily, Humalog pen 100 units subcutaneously, insulin Levemir 18 units subcutaneously, amlodipine 10 mg p.o. daily, Lasix 40 mg p.o. daily, Coreg two 12.5 mg every 12 hours. REVIEW OF SYSTEMS: As per HPI. Otherwise, 12 point review of systems negative. PHYSICAL EXAMINATION: Vital Signs: Temperature 97.4 degrees, pulse 54, respirations 18, blood pressure 143/58, oxygen saturation 96% on room air. Patient's weight is 194 pounds. BMI is 26.4 kg/m2. General: He is alert, oriented x3, in no acute distress. Answering questions appropriately. HEENT: Pale conjunctivae. No icterus. PERRL. Neck: Supple. Lungs: Clear to auscultation. Cardiovascular: Patient is bradycardic. Abdomen: Soft. generalized tenderness, nondistended. Active bowel sounds heard in all four quadrants. Extremities: No clubbing. No cyanosis. 1+ pitting edema in the lower extremities. Neurologic: Alert oriented x3. Nonfocal. Cranial nerves II-XII are grossly intact. LABS: WBCs of 4.20, RBC 3.94, hemoglobin 11.9, hematocrit is 35.6, platelet count is 132,000. Sodium 132, potassium 3.9, chloride 94, carbon dioxide 23, anion gap 15, BUN 46, creatinine 3.1, glucose 261, calcium 7.8, magnesium 1.9, total bilirubin 0.2. AST 16, ALT 12, alkaline phosphatase 44, albumin is 2.3. IMPRESSION AND PLAN: Nausea and vomiting Pneumonia CHF IDDM CKD Hypertension Constipation PLAN: Mr. Nolasco is a 68-year-old male with the h/o CHF, CKD, IDDM. Gastroenterology has been consulted for his nausea and vomiting. The patient is currently on Protonix 40 mg intravenously daily. He is receiving Compazine 10 mg three times a day as needed for his nausea and vomiting. Patient is receiving antibiotics for his pneumonia. He is on a bowel regimen MiraLAX 17 grams orally twice a day and Dulcolax 10 mg suppository at bedtime. The patient had his first bowel movement today since 05/02/2019. We will continue to monitor the patient and follow the plan of care per primary care provider. This plan was discussed with Dr. Naranjo. Thank you for your consult. Please call us for any further questions or concerns. Dictated by NIDIA Benedict for David Naranjo MD Physician Attestation I have seen and examined the patient. I have discussed and reviewed the note by Sonja JACOB and agree with findings and plan as documented. [facility]
[2019-05-08] MEDS: LOVENOX SUBQ SCH (17:13)
--- NOTE | 2019-05-08 19:44 | INFECTIOUS DISEASE PROGRESS NO ---
DATE: 05/08/2019 PRESENT ILLNESS: Mr. Nolasco is being treated for right lower lobe pneumonia and also has an immunoglobulin deficiency with a low IgG. MEDICATIONS: Today is day 1 of meropenem 1 g IV every 12 hours as a renally modified dose. He has had 2 doses of IVIG on this admission. PHYSICAL EXAMINATION: Vital signs: Temperature is 97.6 degrees, pulse rate 62, respiratory rate 19, blood pressure 145/59, O2 saturation is 94% on room air. General: This is a somewhat ill- appearing elderly gentleman. He is sitting up in a chair currently in no acute distress. HEENT: Atraumatic, normocephalic. Oral mucous membranes are pink and moist. Conjunctivae are pink. Neck is supple. Trachea is midline. Cardiovascular: Heart rate and rhythm are irregular, sinus rhythm with PVCs noted on the monitor. Abdomen is soft, round and nontender. Bowel sounds are active. Respiratory: Lung sounds have scattered wheezes in the upper and middle lobes, diminished in the bases with mild scattered crackles in the upper lobes. No work of breathing is noted. Neurologic: He is awake, alert, oriented, and able to move around with assistance. Integumentary: Skin is warm and dry, +2 pedal edema noted pretibially. LABORATORY AND X-RAY: Today his white count is 4.2, hemoglobin 11.9, platelet count 132,000, creatinine is 3.1, GFR is 20. Total bilirubin 0.24, AST 16, ALT 12, alkaline phosphatase 44. No imaging reports today. ASSESSMENT AND PLAN: Mr. Nolasco is being treated for a right lower lobe pneumonia that has been refractory to treatment with Zosyn and Zyvox. He is receiving meropenem at a renally modified dose, which we will continue at this time. Today he says he is feeling much better. He also has had 2 doses of IVIG on this admission and we will plan on rechecking his immunoglobulin in 8 weeks to see if this is a chronic problem. These plans have been discussed with and recommended by Dr. Ortega. COMORBIDITIES: For Mr. Nolasco include he is elderly with diabetes mellitus and acute kidney injury overlying chronic kidney disease. Dictated by NIDIA Pascual for Alexy Ortega MD cc: Alexy Ortega MD
--- NOTE | 2019-05-08 20:18 | NEPHROLOGY PROGRESS NOTE ---
DATE: 05/08/2019 SUBJECTIVE: He is in bed. He states he has been up. He is not eating his meals. States he does not like the food. On room air. Not short of breath. OBJECTIVE: Vital Signs: Blood pressure 145/59, heart rate 62, respiration 19, afebrile. General: No acute distress. Appears depressed. Neck: Neck veins are not appreciated. Trachea is midline. Heart: Regular. No gallops. Lungs: Equal. No crackles. Abdomen: Soft. Nontender. Extremities: 1+ edema. No clubbing or cyanosis. IMPRESSION: Chronic kidney disease stage 4, secondary to diabetic nephropathy, with overlying prerenal factors secondary to his diuretic use. His edema is improved. His diuretics are currently on hold. I had discussed his condition with him and his , as well as likely need for renal replacement therapy in the future, including transplant or dialysis. Once he is discharged, we will begin modality education, dietary education, etc. Continue current care. cc: Victor Hugo Cosme MD
[2019-05-08] MEDS ORDERED: LEVEMIR SUBQ SCH (21:00)
--- NOTE | 2019-05-08 21:36 | PROGRESS NOTE ---
DATE: 05/08/2019 SUBJECTIVE: The patient is sitting up in a chair. He states that he still having intermittent nausea. He states that it is worse after he drinks liquids. He also states that his appetite is still not back. OBJECTIVE: Vital Signs: Temperature 97.4 degrees, blood pressure 143/58, heart rate 54, respirations 18, O2 saturation is 96% on room air. General: This is a chronically ill-appearing, elderly male, sitting up in bed in no acute distress. Heart: S1, S2 normal. Bradycardic. Lungs: Equal air entry bilaterally. No wheezing. No rales. Abdomen: Positive bowel sounds. Soft, nontender, nondistended. Extremities: Edema 2+ bilaterally. Neurologic: Alert and oriented x4. LABORATORY DATA: White blood cell count 4.2, hemoglobin 11, hematocrit 35, platelets 132,000. Sodium 132, potassium 3.9, chloride 94, CO2 of 23, BUN 46, creatinine 3.1, glucose 261. ASSESSMENT AND PLAN: 1. Right basilar pneumonia. The patient's antibiotic regimen was switched yesterday to meropenem. Continue on the current regimen as directed by Dr. Ortega. The patient currently has normal oxygen saturations on room air. 2. Immunoglobulin deficiency. The patient received IVIG yesterday, and will receive another dose today. 3. Chronic kidney disease. Stable. The kidney biopsy revealed changes consistent with diabetic nephropathy. Dr. Cosme is following. 4. Poorly controlled insulin-dependent diabetes mellitus. We will increase the Levemir dosage to 25 units subcutaneous twice a day. 5. Intermittent nausea. The gastric emptying study was noted to be normal. I discussed the case with Dr. Naranjo. The patient has been switched to IV Protonix. The abdominal ultrasound shows gallstones, but no gallbladder inflammation. We will continue to monitor for improvement. Also, the patient's antiemetic has been changed to Compazine. 6. Hypertension. Stable. Continue on the current antihypertensive regimen. 7. Deep vein thrombosis prophylaxis. Continue on Lovenox. cc: Yohana Iglesias MD
[2019-05-09] MEDS ORDERED: D50W SYRINGE ONE (03:13)
[2019-05-09] MEDS: MERREM 1 GM in NS 50 ML IV SCH ×2 (05:34→18:47)
[2019-05-09] MEDS: SODIUM CHLORIDE 0.9% INJ SCH (06:13)
[2019-05-09] MEDS: PROTONIX IV SCH (06:13)
[2019-05-09] MEDS: HUMULIN R SUBQ SCH ×4 (06:20→21:44)
[2019-05-09 08:35] LABS: BASO# 0.01 X1000 (0.0-0.2); BASO% 0.2 % (0.0-0.8); HEMATOCRIT 38.6 % (42.0-52.0); IMM GRAN# 0.07 X1000 (0.0-0.04); IMM GRAN% 1.7 % (0.0-0.5); LYMPH# 0.54 X1000 (1.2-3.4); LYMPH% 13.2 % (20.5-51.1); MCHC 33.7 g/dL (33-37); MCV 88.9 FL (81-99); MONO# 0.32 X1000 (0.11-0.59); MONO% 7.8 % (1.7-9.3); MPV 10.6 FL (7.4-10.4); NEUT# 3.14 X1000 (1.4-6.5); NEUT% 77.1 % (42.2-75.2); PLT 119 X1000 (130-400); RBC 4.34 XMIL (4.7-6.1); RDW 12.4 % (11.5-14.5); WBC 4.08 X1000 (4.8-10.8)
[2019-05-09] MEDS: COREG PO SCH ×2 (08:38→21:43)
[2019-05-09] MEDS: ASPIRIN PO SCH (08:38)
[2019-05-09] MEDS: NORVASC PO SCH (08:38)
[2019-05-09] MEDS: PRINIVIL PO SCH ×3 (08:38→21:44)
[2019-05-09] MEDS: MIRALAX PO SCH ×2 (08:38→21:44)
[2019-05-09] MEDS ORDERED: LEVEMIR SUBQ SCH (09:00)
[2019-05-09 09:06] LABS: ALBUMIN 2.4 g/dL (3.5-5.0); CALCIUM 8.3 mg/dL (8.8-10.2); CREATININE 2.9 mg/dL (0.7-1.2); PHOSPHORUS 2.5 mg/dL (2.7-4.5); POTASSIUM 3.6 mmol/L (3.5-5.1)
[2019-05-09 12:32] LABS: ALB/GLOB RATIO 0.7; ALBUMIN 2.4 g/dL (3.5-5.0); DIRECT BILIRUBIN 0.1 mg/dL (0.00-0.20); TOTAL BILIRUBIN 0.2 mg/dL (0.20-1.00); TOTAL PROTEIN 5.8 g/dL (6.3-8.3)
[2019-05-09] MEDS: LOVENOX SUBQ SCH (18:47)
--- NOTE | 2019-05-09 19:01 | PROGRESS NOTE ---
DATE: 05/09/2019 SUBJECTIVE: The patient had a hypoglycemic episode early this morning, at which time he required a dose of D50. This morning he states that he feels better. OBJECTIVE: Vital Signs: Temperature 98.4, blood pressure 142/69, heart rate 49, respirations 14, O2 saturation 98% on room air. General: This is a chronically ill-appearing male lying in bed in no acute distress. Heart: S1, S2 normal. Lungs: Equal air entry bilaterally. No wheezing. No rales. No rhonchi. Abdomen: Positive bowel sounds. Soft, nontender, nondistended. Extremities: There is 2+ edema. Neurologic: The patient is alert and oriented x4. LABS: White blood cell count 4, hemoglobin 13, hematocrit 38, platelets 119. Sodium 138, potassium 3.6, chloride 98. CO2 is 30, BUN 46, creatinine 2.9, glucose 108. Albumin 2.4, AST 21, ALT 15, alkaline phosphatase 47. ASSESSMENT AND PLAN: 1. Hypoglycemic episode. We will decrease the patient's long-acting insulin dosage. Continue to monitor the Accu-Cheks closely. 2. Right basilar pneumonia. Continue on meropenem. We will repeat the chest x-ray on Saturday. The patient currently has normal oxygen saturations on room air. 3. Immunoglobulin deficiency, status post IVIG. Dr. Ortega will follow up as outpatient on the patient's immunoglobulin levels. 4. Chronic kidney disease. Stable. Management as per chain puller. 5. Poorly controlled insulin-dependent diabetes mellitus. Due to the patient's hypoglycemic episode, the long-acting insulin dosage has been decreased. The patient has been encouraged to eat more. 6. Intermittent nausea. Improved. The patient states that he does not feel nauseated today, but states that he does not like the food and has not been eating very much. We will add Glucerna with each meal. 7. Cholelithiasis. Aware. 8. Hypertension. Stable. 9. Deep vein thrombosis prophylaxis. Continue on Lovenox. cc: Yohana Iglesias MD
[2019-05-09] MEDS: MELATONIN PO SCH ×2 (19:55→21:44)
[2019-05-09] MEDS: DUONEB (A & A) INH PRN (20:20)
--- NOTE | 2019-05-09 21:40 | CONSULTATION ---
DATE OF CONSULTATION: 05/09/2019 Mr. Az Nolasco is a 68-year-old white male who is hospitalized with pneumonia and renal failure. As part of his evaluation, he has undergone an abdominal ultrasound and it was discovered that he has gallstones. The patient is unsure whether his gallstones are symptomatic but we were asked to evaluate him for consideration of cholecystectomy. PAST MEDICAL HISTORY: Bilateral lung infiltrates consistent with pneumonia, nephrotic syndrome, insulin-dependent diabetes mellitus, benign prostatic hypertrophy, obstructive sleep apnea, essential hypertension, hypothyroidism. PAST SURGICAL HISTORY: Left shoulder surgery and vasectomy. HOME MEDICATIONS: Norvasc, Lasix, aspirin, insulin, Levemir and lisinopril. ALLERGIES: No known drug allergies. SOCIAL HISTORY: His was at his bedside. He is retired. He does not smoke. REVIEW OF SYSTEMS: A 14-point review of systems was performed and was essentially negative except for the history of present illness. FAMILY HISTORY: His mother had congestive heart failure, hypertension, diabetes. Father had a stroke. PHYSICAL EXAM: On exam, Mr. Az Nolasco is an older white male in bed appears to be comfortable no acute distress. His heart rate is 49 to 54, blood pressure is 142/69, O2 saturation 98%. He is afebrile. He is 6 feet, weighs 194 pounds.HEENT: No jaundice. No oral lesions. No cervical or supraclavicular lymphadenopathy. His heart has regular rate. Lungs were clear. Abdomen was soft without tenderness. There is no palpable mass. No costovertebral tenderness. Rectal exam was not performed. He does have palpable femoral pulses. No significant peripheral edema. Neurological: No focal deficits. LABS: His white blood cell count is normal, hematocrit is 36%. BUN and creatinine 43 and 2.9. Liver function tests are within normal limits. Abdominal ultrasound suggests gallstones. IMPRESSION: Chronic cholecystitis with cholelithiasis. PLAN: I do feel that he needs laparoscopic cholecystectomy electively as his pneumonia resolves and his kidney function is optimized. I think the plan is to discharge him home in the near future. He can certainly follow up in our outpatient offices for scheduling. cc: Sindhu Royal MD
[2019-05-09] MEDS: DULCOLAX PR SCH (21:44)
--- NOTE | 2019-05-09 23:17 | PROVIDER PROGRESS NOTE ---
Progress Note S: No acute overnight events. Patient reports improvement of N/V. He is tolerating solid diet without GERD, dysphagia, or abdominal pain. O: Last Vital Signs Temp 97.8 F 05/09/19 19:45 Pulse 89 05/09/19 20:20 Resp 16 05/09/19 20:20 BP 140/69 05/09/19 19:45 Pulse Ox 96 05/09/19 20:20 Height 6 ft Weight 194 lb 9.6 oz LABS: GEN: awake, alert, NAD HEENT: anicteric, MMM NECK: supple, no JVD PULM: Clear anteriorly, no wheezing CV: RRR, no murmurs ABD: soft NT/ND, BS present EXT: +2 edema, WWP NEURO: nonfocal 05/09/19 05/09/19 05/09/19 08:10 08:10 08:10 WBC 4.08 L Hgb 13.0 L Plt Count 119 L Sodium 138 Potassium 3.6 Chloride 98 Carbon Dioxide 30 BUN 46 H Creatinine 2.9 H Glucose 108 H D Calcium 8.3 L Total Protein 5.8 L Albumin 2.4 L US ABDOMEN-COMPLETE - 05/08/2019 INDICATION: abdominal pain/nausea COMPARISON: 04/29/2019, 05/23/2017 FINDINGS: There are numerous small gallstones in the gallbladder. No gallbladder distention or inflammation. The kidneys are diffusely hyperechoic compatible with chronic medical renal disease. No hydronephrosis. No perinephric fluid collections. There is some trace subhepatic ascites. The pancreas is obscured. The liver and spleen are normal. Common bile duct measures 3 mm. Aorta, IVC, and main portal vein are patent. There is a trace right pleural effusion. IMPRESSION: 1. Hyperechoic kidneys compatible with chronic medical renal disease. No acute disease or complication. 2. Numerous gallstones in the gallbladder. No evidence of gallbladder inflammation. A/P: Mr. Az Nolasco is a 68 year old man with HTN, diastolic CHF, pHTN, IDDM2, CKD, constipation who presented with N/V, chills, and worsening LE edema. Nephrology is working patient up for nephrotic syndrome. Patient has had intermittent N/V for several weeks. Workup is revealing for numerous gallstones, but no acute cholecystitis or biliary obstruction. LFTs are WNL. Normal gastric emptying study. Patient's symptoms have improved significantly. Recommend continue PPI and antiemetics prn. Consider outpatient elective CCY for possible biliary colic. Constipation controlled # N/V # Gallstones # Pneumonia # IDDM2 # CKD # CHF # Constipation Will follow with you. Please call with questions.
[2019-05-10] MEDS: HUMULIN R SUBQ SCH ×4 (06:11→22:00)
[2019-05-10 07:51] LABS: HEMATOCRIT 35.1 % (42.0-52.0); HEMOGLOBIN 11.8 g/dL (14.0-18.0); MCH 30.3 PG (27-31); MCHC 33.6 g/dL (33-37); MPV 10.2 FL (7.4-10.4); RBC 3.9 XMIL (4.7-6.1); RDW 12.5 % (11.5-14.5); WBC 5.2 X1000 (4.8-10.8)
[2019-05-10 08:17] LABS: ALBUMIN 2.2 g/dL (3.5-5.0); CALCIUM 8.3 mg/dL (8.8-10.2); CREATININE 2.6 mg/dL (0.7-1.2); PHOSPHORUS 2.5 mg/dL (2.7-4.5); POTASSIUM 3.6 mmol/L (3.5-5.1)
[2019-05-10] MEDS: PRINIVIL PO SCH ×2 (09:37→20:41)
[2019-05-10] MEDS: MERREM 1 GM in NS 50 ML IV SCH ×2 (09:37→20:41)
[2019-05-10] MEDS: SODIUM CHLORIDE 0.9% INJ SCH (09:37)
[2019-05-10] MEDS: ASPIRIN PO SCH (09:37)
[2019-05-10] MEDS: COREG PO SCH ×2 (09:37→20:41)
[2019-05-10] MEDS: PROTONIX IV SCH (09:37)
[2019-05-10] MEDS: NORVASC PO SCH (09:37)
[2019-05-10] MEDS: LEVEMIR SUBQ SCH (09:38)
[2019-05-10] MEDS: MIRALAX PO SCH ×2 (10:28→22:00)
--- NOTE | 2019-05-10 13:58 | Diag Imaging Result Doc PS360 ---
CHEST-PORTABLE - 05/10/2019 INDICATION: pneumonia COMPARISON: 05/05/2019 FINDINGS: Stable cardiomegaly. Pulmonary vascularity is somewhat distended. There has been significant improvement in the bibasilar infiltrates/edema. No significant infiltrates at this time. No pneumothorax or pleural effusion. IMPRESSION: Significant improvement from prior. Electronically signed by Armain Priest 05/10/2019 1:55 PM
--- NOTE | 2019-05-10 15:41 | INFECTIOUS DISEASE PROGRESS NO ---
DATE: 05/10/2019 PRESENT ILLNESS: The patient has a right lower lobe pneumonia which has been refractory to treatment with Zyvox and Zosyn. The patient also has an immunoglobulin deficiency. MEDICATIONS: The patient has been on meropenem now for 3 days and the patient has received 2 doses of IVIG. PHYSICAL EXAMINATION: Vital Signs: Temperature is 97.8 degrees, pulse 60, respirations 17, blood pressure 169/69. General: This is a somewhat ill-appearing, elderly male. He is in no acute distress. Head/eyes/ears/nose/throat: Can hear my spoken words and see near objects. He does not have any white patches in his mouth. Neck: No pain with movement. Lungs: There were right lower lobe rales. The left lung was clear. Cardiovascular: Heart rate is regular. Abdomen: Soft and not tender. Neurologic: The patient is awake. He can move his extremities. There is no tremor. He talked in a coherent fashion. LAB AND X-RAY: Chest x-ray was taken today. The result is not back yet. The patient's CBC shows a white count of 5200, hemoglobin 11.8, and platelet count 103,000. Creatinine is 2.6. GFR is 25. ASSESSMENT AND PLAN: Patient has pneumonia and an immunoglobulin deficiency. The patient wants to go home, but I told him I thought it would be better to stay in for a few more days and continue taking meropenem rather than to go home on oral medication that might not be as effective. The patient said he understood that and he said he is willing to stay. As regarding the patient's immunoglobulin deficiency, I will repeat his level in about 6 to 8 weeks and if the IgG level is low again, then the patient, I think, would be a candidate for regular infusions of IVIG on a monthly basis. COMORBIDITIES: The patient has an immunoglobulin deficiency. He also is a diabetic and he has renal calculi. cc: Alexy Ortega MD
[2019-05-10] MEDS: LOVENOX SUBQ SCH (17:50)
[2019-05-10] MEDS: MELATONIN PO SCH (20:41)
[2019-05-10] MEDS: DULCOLAX PR SCH (20:42)
[2019-05-10] MEDS: NORCO-7.5 PO PRN (20:43)
--- NOTE | 2019-05-10 23:35 | PROVIDER PROGRESS NOTE ---
Progress Note S: No acute overnight events. No N/V, CP, abdominal pain, SOB, dysphagia, or GERD. O: Last Vital Signs Temp 98.0 F 05/10/19 19:36 Pulse 56 L 05/10/19 19:36 Resp 16 05/10/19 19:36 BP 152/67 05/10/19 19:36 Pulse Ox 99 05/10/19 19:36 Height 6 ft Weight 194 lb 9.6 oz LABS: GEN: awake, alert, NAD HEENT: anicteric, MMM NECK: supple, no JVD PULM: Clear anteriorly, no wheezing CV: RRR, no murmurs ABD: soft NT/ND, BS present EXT: +2-3 edema, WWP NEURO: nonfocal LABS: 05/10/19 05/10/19 07:27 07:27 WBC 5.20 Hgb 11.8 L Plt Count 103 L Sodium 137 Potassium 3.6 Chloride 100 Carbon Dioxide 29 BUN 38 H Creatinine 2.6 H Glucose 145 H Calcium 8.3 L Phosphorus 2.5 L Albumin 2.2 L US ABDOMEN-COMPLETE - 05/08/2019 INDICATION: abdominal pain/nausea COMPARISON: 04/29/2019, 05/23/2017 FINDINGS: There are numerous small gallstones in the gallbladder. No gallbladder distention or inflammation. The kidneys are diffusely hyperechoic compatible with chronic medical renal disease. No hydronephrosis. No perinephric fluid collections. There is some trace subhepatic ascites. The pancreas is obscured. The liver and spleen are normal. Common bile duct measures 3 mm. Aorta, IVC, and main portal vein are patent. There is a trace right pleural effusion. IMPRESSION: 1. Hyperechoic kidneys compatible with chronic medical renal disease. No acute disease or complication. 2. Numerous gallstones in the gallbladder. No evidence of gallbladder inflammation. A/P: Mr. Az Nolasco is a 68 year old man with HTN, diastolic CHF, pHTN, IDDM2, CKD, constipation who presented with N/V, chills, and worsening LE edema. Nephrology is working patient up for nephrotic syndrome. Patient has had intermittent N/V for several weeks. Workup is revealing for numerous gallstones, but no acute cholecystitis or biliary obstruction. LFTs are WNL. Normal gastric emptying study. Patient's N/V resolved. Recommend continue PPI and antiemetics prn. Consider outpatient elective CCY for possible biliary colic. Constipation controlled. # N/V # Gallstones # Pneumonia # IDDM2 # CKD # CHF # Constipation Will sign off. Follow-up with Dr. Naranjo in 4-6 weeks. Please call with questions.
--- NOTE | 2019-05-11 04:50 | PROGRESS NOTE ---
DATE: 05/10/2019 SUBJECTIVE: The patient is sitting at the edge of the bed. He states that he would like to go home. He states that he feels a little bit better today. OBJECTIVE: Vital Signs: Temperature 98.7 degrees, blood pressure 120/58, heart rate 62, respirations 17, O2 saturation 98% on room air. General: This is an elderly male sitting at the edge of the bed in no acute distress. Heart: S1, S2 normal. Regular rate and rhythm. Lungs: Equal air entry bilaterally. No wheezing. No rales. No rhonchi. Abdomen: Positive bowel sounds. Soft, nontender, nondistended. Extremities: No edema no cyanosis. Neurologic: The patient is alert and oriented x3. LABS: White blood cell count 5.2, hemoglobin 11, hematocrit 35, platelets 103,000. Sodium 137, potassium 3.7, chloride 100, CO2 29, BUN 38, creatinine 2.6, glucose 145. ASSESSMENT AND PLAN: 1. Pneumonia. Continue on meropenem as directed by Dr. Ortega. 2. Immunoglobulin deficiency status post IVIG. Aware. The patient will follow up with Dr. Ortega as outpatient to monitor the immunoglobulin levels. 3. Chronic kidney disease. Stable. 4. Insulin-dependent diabetes mellitus. Continue on Levemir. 5. Chronic cholecystitis with cholelithiasis. The patient will follow up with Dr. Royal as outpatient to discuss cholecystectomy. 6. Hypertension. Stable. 7. Deep vein thrombosis prophylaxis. Continue on Lovenox. DISPOSITION.: Continue with physical therapy. Will plan to discharge the patient home once cleared by Dr. rOtega. cc: Yohana Iglesias MD
[2019-05-11] MEDS: HUMULIN R SUBQ SCH ×2 (05:59→12:56)
[2019-05-11 07:23] LABS: HEMATOCRIT 36.6 % (42.0-52.0); MCH 29.9 PG (27-31); MCHC 32.8 g/dL (33-37); MCV 91.3 FL (81-99); MPV 10.7 FL (7.4-10.4); RBC 4.01 XMIL (4.7-6.1); RDW 12.7 % (11.5-14.5); WBC 4.21 X1000 (4.8-10.8)
[2019-05-11 07:47] LABS: ALBUMIN 2.2 g/dL (3.5-5.0); CALCIUM 8.3 mg/dL (8.8-10.2); CREATININE 2.3 mg/dL (0.7-1.2); PHOSPHORUS 2.5 mg/dL (2.7-4.5); POTASSIUM 3.8 mmol/L (3.5-5.1)
[2019-05-11 08:06] VITALS: BP 168/75
[2019-05-11] MEDS ORDERED: LEVAQUIN PO SCH (09:00)
[2019-05-11] MEDS: MIRALAX PO SCH ×2 (09:03→09:10)
[2019-05-11] MEDS: LEVEMIR SUBQ SCH (09:03)
[2019-05-11] MEDS: PROTONIX IV SCH (09:03)
[2019-05-11] MEDS: NORVASC PO SCH (09:03)
[2019-05-11] MEDS: COREG PO SCH (09:03)
[2019-05-11] MEDS: PRINIVIL PO SCH (09:03)
[2019-05-11] MEDS: SODIUM CHLORIDE 0.9% INJ SCH (09:03)
[2019-05-11] MEDS: ASPIRIN PO SCH (09:03)
--- NOTE | 2019-05-11 09:39 | NEPHROLOGY PROGRESS NOTE ---
DATE: 05/11/2019 DATE AND TIME SEEN: On 05/11/2019 at 0725 hours. SUBJECTIVE: Mr. Nolasco is sitting up in bed. States that he is feeling much better than he was last week. States that he is eating just a little bit more without nausea and vomiting. OBJECTIVE: Vital signs: Temperature 97.7 degrees, blood pressure 156/62, heart rate 69, respirations 14. He is on room air. Last recorded saturation 97%. He has had 730 in, he has had 300 out to void, though he states he thought he had more than that. LABORATORY DATA: Sodium 139, potassium 4.8, chloride 102, CO2 of 28, BUN 33, creatinine 2.3, glucose is 150. Anion gap is 7, calcium 8.3, phosphorus 2.5 with an albumin of 2.2. His white count is 4.4, hemoglobin 12, hematocrit 36.6 with a platelet count of 112,000. PHYSICAL EXAMINATION: General: This is a 68-year-old white male. He is resting quietly in bed. He appears chronically ill. He is in no acute distress. Skin: Warm and dry. HEENT: Normocephalic, atraumatic. Conjunctiva is pale pink. He has ABUNDIO. Mucous membranes are dry. Neck: Supple. Trachea midline. He has no evidence of JVD. Cardiovascular: Regular rate and rhythm today. No murmur or gallop appreciated. Lungs: Clear to auscultation bilaterally. Equal excursion on room air. Abdomen: Soft, nontender, positive bowel sounds. Genitourinary: Not inspected. Patient has been voiding. He states he has been getting up and going to the bathroom. They have recorded only 300. He states he has voided several times. Integumentary: No rashes or lesions evident. Neurological: He is alert and oriented x3. Lower Extremities: Continues with 1 to 2+ lower extremity edema. ASSESSMENT AND PLAN: 1. Chronic kidney disease stage 4 secondary to diabetic nephropathy overlying prerenal factor secondary to his diuretic use. His diuretics have been on hold. His edema has improved. We have requested that he keep strict input and output. Otherwise, no indication for intervention today. 2. Electrolytes and acid-base balance. These are acceptable. 3. Anemia. This is in target. 4. Heart failure. This is improved though his diuretics are currently on hold. He is currently on a fluid restriction. He will go home with furosemide 40mg daily and weigh daily. Increase to 40mg BID if weight increases more than 5 pounds. rg I would like to thank you for allowing us to follow with this patient. Dictated by NIDIA Menendez for Victor Hugo Cosme MD Face to face encounter, data reviewed, discussed with Jose Cruz Lira on 05/11/19. I agree with the above assessment and plan of care. cc: NIDIA Menendez MD [facility]
[2019-05-12] MEDS ORDERED: LEVAQUIN PO SCH (09:00)
--- NOTE | 2019-05-12 11:46 | DISCHARGE SUMMARY ---
ADMISSION DATE: 05/02/2019 DISCHARGE DATE: 05/11/2019 FINAL DISCHARGE DIAGNOSES: 1. Right basilar pneumonia. 2. Immunoglobulin deficiency status post IVIG infusion. 3. Acute kidney injury on chronic kidney disease. 4. Poorly controlled insulin-dependent diabetes mellitus. 5. Chronic cholecystitis with cholelithiasis. 6. Hypertension. CONSULTATIONS: 1. ID consultation with Dr. Alexy Ortega. 2. Nephrology consultation with Dr. Cosme. 3. General Surgery consultation with Dr. Royal. PROCEDURES: CT-guided renal biopsy performed on 05/04/2019. IMAGIN. Chest x-ray performed on 05/02/2019, which revealed worsened pulmonary edema. 2. CT of the chest performed on 05/02/2019, which revealed right lower lobe pneumonia, bilateral pleural effusions, cholelithiasis. 3. Abdominal x-ray performed on 05/05/2019, which revealed a right basilar infiltrate and pulmonary vascular congestion. 4. Gastric emptying study performed on 05/07/2019, which revealed normal gastric emptying. 5. Abdominal ultrasound performed on 05/08/2019, which revealed numerous gallstones in the gallbladder. No evidence of gallbladder inflammation. HOSPITAL COURSE: Mr. Nolasco is a 68-year-old male with a history of hypertension, diabetes mellitus type 2, and stage 3 chronic kidney disease, who presented to the ER with a chief complaint of fever and chills. The patient was ultimately admitted to the hospitalist service with a presumptive diagnosis of pneumonia. Broad-spectrum antibiotics were initiated. Over the course of the hospitalization, the patient was noted to have worsening renal function, so Nephrology was consulted. It was decided during the hospital stay that the patient would require a renal biopsy to determine the cause of his chronic kidney disease due to the fact that the patient had nephrotic range proteinuria and extensive swelling in his lower extremities. The patient also complained of persistent nausea and inability to eat. A renal biopsy was performed on 05/04/2019. The patient was treated with low-dose diuretic therapy for several days and then the diuretic therapy was held. The patient was also seen by the GI service in reference to the poor appetite and persistent nausea. An abdominal ultrasound was done that revealed cholelithiasis as well as chronic cholecystitis so General Surgery was consulted for further input. It was recommended by the general surgeon that the patient follow up as outpatient to discuss possible cholecystectomy, once the patient has improved from his other medical conditions. Ultimately, the renal biopsy revealed changes consistent with diabetic nephropathy. Infectious Disease was consulted for assistance with the antibiotic therapy. The patient continued to improve clinically and ultimately the chest x-ray that was done prior to discharge revealed resolution of the infiltrative process in the lung. Also, the patient's renal function stabilized to his historical baseline of 2.3. During the hospital stay, the patient's insulin regimen was adjusted downward because the patient was not eating as much. The patient and his were given instructions to slowly increase the long-acting insulin once the patient's appetite had returned. DISCHARGE MEDICATIONS: 1. MiraLAX 17 g oral daily. 2. Lisinopril 20 mg oral twice a day. 3. Aspirin 81 mg oral daily. 4. Norvasc 10 mg p.o. daily. 5. Coreg 12.5 mg oral every 12 hours. 6. Levemir 15 units subcutaneous daily. 7. Lasix 40 mg p.o. daily. 8. Humalog sliding scale. DISCHARGE DIET: 1800 ADA diet. FOLLOWUP INSTRUCTIONS: The patient will need to follow up with Dr. Cosme as scheduled by his clinic. The patient will need to follow up with Dr. Royal in 2 weeks. cc: MD Mikayla Funez CRNP MTDD
== END 2019-05-11 14:08 | disposition home or self-care (01) | DRG 193 ==
LOC: SUPCPDRO → ED 11:41 → SUATTDRO 15:34 → EDIPHOLD 15:34 → 3N 18:21
PROVIDERS: ATTEND Internal Medicine

== ENCOUNTER 2019-05-25 13:39 | Inpatient (IN) ==
[2019-05-25] MEDS ORDERED: NS 1,000 ML IV SCH ×2 (15:00→16:44)
[2019-05-25] MEDS ORDERED: ZOSYN 3.375 GM in NS 50 ML IV SCH (15:00)
--- NOTE | 2019-05-25 15:08 | Diag Imaging Result Doc PS360 ---
CHEST-2 VIEWS - 05/25/2019 INDICATION: PNEUMONIA COMPARISON: 05/10/2019 FINDINGS: There is mild cardiomegaly. Pulmonary vascularity is normal. No infiltrates or edema. No pneumothorax or pleural effusion. There are benign calcified granulomas bilaterally. IMPRESSION: Cardiomegaly. Electronically signed by Armani Priest 05/25/2019 3:06 PM
[2019-05-25 15:18] LABS: HEMATOCRIT 31.8 % (42.0-52.0); HEMOGLOBIN 10.6 g/dL (14.0-18.0); MCH 30.5 PG (27-31); MCHC 33.3 g/dL (33-37); MCV 91.6 FL (81-99); RBC 3.47 XMIL (4.7-6.1); RDW 13.3 % (11.5-14.5); WBC 14.65 X1000 (4.8-10.8)
[2019-05-25 15:40] LABS: ALB/GLOB RATIO 0.8; ALBUMIN 2.9 g/dL (3.5-5.0); CALCIUM 9.1 mg/dL (8.8-10.2); CREATININE 2.3 mg/dL (0.7-1.2); POTASSIUM 4.1 mmol/L (3.5-5.1); TOTAL BILIRUBIN 0.61 mg/dL (0.20-1.00); TOTAL PROTEIN 6.6 g/dL (6.3-8.3)
--- NOTE | 2019-05-25 16:24 | Diag Imaging Result Doc PS360 ---
US ABDOMEN-COMPLETE - 05/25/2019 INDICATION: UTI, cholecystitis COMPARISON: 05/08/2019, 04/29/2019 FINDINGS: There are numerous stones in the gallbladder. No gallbladder distention or wall thickening. No surrounding free fluid. Common bile duct measures 4 mm. The liver, pancreas, spleen, and both kidneys are normal. Spleen size is 10.3 x 10 x 3.7 cm. Aorta, IVC, and main portal vein are patent. IMPRESSION: Cholelithiasis. No change from prior. Electronically signed by Armani Priest 05/25/2019 4:22 PM
[2019-05-25] MEDS: NS 1,000 ML IV SCH (17:10)
[2019-05-25 17:37] LABS: URINE SOURCE VOIDED
[2019-05-25 17:45] LABS: BILIRUBIN URINE NEGATIVE (NEGATIVE); BLOOD URINE MODERATE (NEGATIVE); COLOR YELLOW; GLUCOSE URINE 100 mg/dL (NEGATIVE); KETONE URINE 10 mg/dL (NEGATIVE); LEUKOCYTES URINE MODERATE (NEGATIVE); NITRITE URINE NEGATIVE (NEGATIVE); PH URINE 6.5; PROTEIN URINE 600 mg/dL (NEGATIVE); SP GRAVITY URINE 1.018; TURBIDITY URINE HAZY (CLEAR); UROBILINOGEN URINE NORMAL (NORMAL)
[2019-05-25 17:47] LABS: UR EPITHELIAL CELLS <10 /HPF (<10); URINE BACTERIA 2+ /HPF; URINE RBC 20-40 /HPF (<10); URINE WBC TNTC /HPF (<10)
--- NOTE | 2019-05-25 20:43 | HISTORY AND PHYSICAL ---
Mr. Az Nolasoc is a 68-year-old white male who was just hospitalized at [facility] with a diagnosis of pneumonia, congestive heart failure and nausea. As part of his evaluation, an ultrasound of his gallbladder was performed which documented cholelithiasis but there was no evidence of acute cholecystitis. Liver function tests were normal and he was treated and sent home. I saw him in our outpatient offices today as a followup for his gallstones and he looked acutely ill and I admitted him to the hospital for further evaluation. PAST MEDICAL HISTORY: Insulin-dependent diabetes mellitus, nephrotic syndrome, congestive heart failure, hypertension. MEDICATIONS: Prinivil, insulin, Levemir, Norvasc, Coreg and Lasix. ALLERGIES: No known drug allergies. SOCIAL HISTORY: He is here with his . REVIEW OF SYSTEMS: After discharge from this hospital end of April about 2 weeks ago he started feeling better but over this weekend he began having the same symptoms he was admitted with before which included dry heaves and chills. He also has swelling of his feet. He was to see Dr. Ortega, our infectious disease doctor as an outpatient. Also see Dr. Prieto Cosme as an outpatient for his nephrotic syndrome. He was seeing me in our outpatient offices because of gallstones. I decided to admit him to the hospital because he looked acutely ill and for further evaluation. FAMILY HISTORY: Was reviewed with the patient and was noncontributory. On exam, Mr. Az Nolasco is a 68-year-old white male who looks acutely ill but he is in no acute distress. His heart rate is 66, blood pressure 154/60, O2 saturation is 100% room air. He is afebrile. He is 173 pounds, 6 feet.HEENT: He has no jaundice. No oral lesions. Satisfactory dentition. No cervical or supraclavicular lymphadenopathy. His heart has regular rate. Lungs were clear. His abdomen was soft. There is no tenderness. There is no palpable mass. No hernia. No costovertebral tenderness. Rectal exam was not performed. He does have palpable femoral pulses. He does have peripheral edema. Neurological: No focal deficit. DIAGNOSTIC DATA: A chest x-ray shows cardiomegaly but it was felt the pulmonary vascularity was normal with no infiltrates or edema. No pleural effusion. An abdominal ultrasound has been performed which shows again cholelithiasis but no surrounding free fluid and no gallbladder wall thickening. His liver function tests are normal. His creatinine is 2.3. His white blood cell count 14.6, hematocrit is 32%. IMPRESSION: Nausea with known gallstones, elevated white blood cell count, recent hospitalization for pneumonia, congestive heart failure and renal insufficiency with creatinine at 2.3. PLAN: I have admitted him from our outpatient offices. I have begun IV Zosyn. We will keep his fluids low. I have asked our hospitalist to reevaluate him and help with his inpatient care. Dr. Ortega I have also asked to see him as our Infectious Disease expert. He does need his gallbladder removed for cholelithiasis and certainly if it is felt that it is because of his ongoing symptoms. A HIDA scan is planned for tomorrow. cc: MD Yohana Perkins MD
--- NOTE | 2019-05-25 21:20 | INFECTIOUS DISEASE PROGRESS NO ---
DATE: 05/25/2019 PRESENT ILLNESS: The patient, I think, could have cholecystitis or a urinary tract infection. He previously had pneumonia but his chest x-ray is clear now. The patient may have Clostridium difficile diarrhea. RECOMMENDATIONS: I agree with placing the patient on Zosyn. Some of the side effects of the antibiotic, including rash and diarrhea, have been explained to the patient's family member present. I have ordered an abdominal ultrasound,a HIDA scan and stool for C.difficile. DISCUSSION: The patient recently was hospitalized. He had pneumonia. He was sent home on Levaquin and approximately two days ago he started having cold shaking chills and bilateral flank pain, which was worse on the right side than the left. He also had dry heaves, dysuria, and some loose stools. MEDICATIONS: As mentioned above the patient is on Zosyn. PHYSICAL EXAMINATION: Vital Signs: Temperature is 98.4 degrees, pulse 66, respirations 19, blood pressure 154/60. Patient weighs 173 pounds. General: The patient is an ill- appearing, elderly male. He is in no acute distress at this time. Head/eyes/ears/nose/throat: He can hear my spoken words and see near objects. I did not see any white patches on his tongue. Neck: No meningismus. Lungs: Clear to auscultation. Cardiac: Heart rate is irregular. Abdomen: Abdomen and flanks are soft and not tender. Neurologic: The patient is slightly lethargic. He is able to ambulate a little bit. He can move his extremities. He does not have a tremor. IMAGING: Chest x-ray shows clear lung atkinson. LABS: There is no lab that is back yet. ASSESSMENT AND PLAN: Patient came in and I think the possibilities are a urinary tract infection or cholecystitis. Also, I think since the patient has had some loose stools and he has been on antibiotics, he may have Clostridium difficile diarrhea. My plan is to continue with Zosyn and obtain an abdominal ultrasound and a HIDA scan. Also, I am going to order the stool to be checked for Clostridium difficile. COMORBIDITIES: The patient is elderly. He has an immunoglobulin deficiency, diabetes mellitus, chronic renal calculi, and gallstones. cc: MD Yohana Jacobo MD MTDD
[2019-05-25] MEDS ORDERED: ZOFRAN IV PRN (21:33)
[2019-05-25] MEDS ORDERED: TYLENOL PO PRN (21:33)
--- NOTE | 2019-05-25 22:03 | Diag Imaging Result Doc PS360 ---
ABDOMEN FLAT/UPRIGHT - 05/25/2019 INDICATION: abdominal pain/c.difficile COMPARISON: 05/05/2019 FINDINGS: There is a nonobstructive bowel gas pattern. No free air or abdominal calcifications. No significant constipation. IMPRESSION: No acute disease. Electronically signed by Armani Priest 05/25/2019 10:01 PM
--- NOTE | 2019-05-25 22:06 | CONSULTATION ---
DATE OF CONSULTATION: 05/25/2019 CONSULTATION FOR: Medical management. HISTORY OF PRESENTING ILLNESS: This is a 68-year-old male who presents as a direct admit from general surgeon's office, Dr. Royal stating that he was having a followup from a previous hospitalization where he was discharged on 05/12/2019 after being found to have chronic cholecystitis with cholelithiasis. His complaints today are that it began Saturday with nausea, vomiting, chills, right upper quadrant and back pain so he was admitted as a direct admit with consultation with the hospitalist. Workup has shown a white blood cell count of 14.65. His chest x-ray showed only cardiomegaly, no infiltrates or edema. We did a complete ultrasound of the abdomen that showed cholelithiasis with no change from prior. Infectious Disease was also consulted and we will follow throughout the remainder of this hospitalization. PAST MEDICAL HISTORY: Diabetes type 2, hypertension, chronic kidney disease stage 3, hypothyroidism and diastolic congestive heart failure. PAST SURGICAL HISTORY: Of a left shoulder surgery and vasectomy. FAMILY HISTORY: Mom has CHF, hypertension and diabetes. Father had a stroke. SOCIAL HISTORY: Currently lives with his . Denies any tobacco, alcohol or illicit drug use. ALLERGIES: He has no known drug allergies. HOME MEDICATIONS: Will need to obtain a current list, reconcile, review and restart as appropriate. Will place an order for nursing to update and confirm home medications. LABORATORY DATA: Showed a white blood cell count of 14.65, hemoglobin 10.6, hematocrit 31.8, platelets 246,000. Sodium 136, potassium 4.1, chloride 103, CO2 17, BUN of 47, creatinine of 2.3 which is at his baseline with his chronic kidney disease stage 3, glucose 157. Chest x-ray showed cardiomegaly. Abdominal ultrasound showed cholelithiasis with no change from prior. REVIEW OF SYSTEMS: He denied any fever. He was positive for chills. Denied any chest pain, coughing, shortness of breath. He had right upper quadrant radiating to his back pain, nausea, vomiting. Denied any constipation, diarrhea, burning or hurting with urination. PHYSICAL EXAMINATION: On arrival he had a temperature of 98.4 degrees, pulse 66, respirations 19, blood pressure 154/60, saturating 100% on room air.General: This is a 68-year-old male who is lying in the bed and answers questions appropriately. HEENT: Normocephalic, atraumatic. Normal ENT inspection. Oropharynx and nares are clear. Pupils are equal, round, reactive to light, accommodation. Extraocular movements are intact. Neck: Normal inspection, normal range of motion. Lungs: Clear to auscultation bilaterally with equal lung expansion, chest wall movement. Heart: Regular rate and rhythm. No murmurs, rubs, or gallops. Abdomen: Soft, there was some mild tenderness to the right upper quadrant. Bowel sounds are present x4 quadrants. Musculoskeletal: He has 5/5 strength x4 extremities. Neurological: The cranial nerves 2-12 appear grossly intact. ASSESSMENT: 1. Right upper quadrant abdominal pain. 2. Nausea, vomiting. 3. Cholelithiasis. 4. Leukocytosis. OUR PLAN: He was admitted with consultation with Infectious Disease and was admitted to General Surgery. He is n.p.o. Will have a HIDA scan. We are going to check C difficile, stool, a urinalysis. He is placed on normal saline at 100 mL an hour, Zosyn 3.375 g IV q.6 and further orders after seen by attending and by aerodynamic consultant. Thank you for the opportunity to follow this patient throughout the remainder of his hospitalization. Dictated by NIDIA Faith for Yohana Iglesias MD cc: NIDIA Faith MD I performed a face to face encounter on the patient. I reviewed all labs and imaging on the patient. I agree with the H&P as dictated. BLYTHEDALE CHILDREN'S HOSPITALEnrique
[2019-05-25] MEDS: COREG PO SCH (23:01)
[2019-05-25] MEDS: VANCOCIN PO SCH (23:01)
[2019-05-25] MEDS: CULTURELLE PO SCH (23:18)
[2019-05-25] MEDS: ZOSYN 2.25 GM in NS 50 ML IV SCH (23:27)
[2019-05-25] MEDS: HUMULIN R SUBQ SCH (23:28)
--- NOTE | 2019-05-26 00:04 | EKG Report ---
Test Performed on : 05/25/2019 11:49:14 PM Test Reason : preop ekg Blood Pressure : / mmHG Vent. Rate : 068 BPM Atrial Rate : 068 BPM P-R Int : 172 ms QRS Dur : 082 ms QT Int : 398 ms P-R-T Axes : 052 007 097 degrees QTc Int : 423 ms Normal sinus rhythm. Minimal voltage criteria for LVH, may be normal variant Nonspecific T wave abnormality Abnormal ECG When compared with ECG of 02-MAY-2019 18:22, (Unconfirmed) T wave inversion less evident in Lateral leads Confirmed by Saturnino Salinas MD ([id number]) on 05/26/2019 1:05:19 PM
[2019-05-26] MEDS: VANCOCIN PO SCH ×4 (03:18→21:07)
[2019-05-26] MEDS: ZOSYN 2.25 GM in NS 50 ML IV SCH ×2 (06:03→10:44)
[2019-05-26] MEDS ORDERED: INSULIN PEN NEEDLES ONE (07:45)
[2019-05-26] MEDS: PROTONIX IV SCH (08:26)
[2019-05-26] MEDS: HUMULIN R SUBQ SCH ×4 (08:26→21:07)
--- NOTE | 2019-05-26 08:39 | Diag Imaging Result Doc PS360 ---
HIDA SCAN W/O EJECT. FRACTION - 05/25/2019 INDICATION: Cholecystitis TECHNIQUE: 5.8 mCi of Choletec was administered COMPARISON: Ultrasound from 05/25/2019 FINDINGS: There is normal uptake and clearance by the liver. There is normal excretion into the biliary collecting system and small bowel. There is no evidence of excretion into the gallbladder. On ultrasound, the gallbladder contains numerous gallstones and is rather distended. IMPRESSION: Findings compatible with acute cholecystitis. This report was discussed with RT Debbie on 05/26/2019 at 8:31 AM and was readback. Electronically signed by Armani Priest 05/26/2019 8:37 AM
[2019-05-26] MEDS ORDERED: PRINIVIL PO SCH ×3 (09:00→21:00)
[2019-05-26] MEDS ORDERED: LR 1,000 ML ONE (09:05)
[2019-05-26] MEDS ORDERED: SENSORCAINE 0.25%/EPI 1:200,000 ONE (09:05)
[2019-05-26] MEDS ORDERED: SODIUM CHLORIDE 0.9% ONE (09:05)
[2019-05-26] MEDS ORDERED: DIPRIVAN 1% ONE (09:17)
[2019-05-26] MEDS ORDERED: FENTANYL ONE (09:18)
[2019-05-26] MEDS ORDERED: QUELICIN (DOSE) ONE (09:19)
[2019-05-26] MEDS ORDERED: XYLOCAINE-MPF 2% ONE (09:19)
[2019-05-26] MEDS ORDERED: DECADRON ONE (09:19)
[2019-05-26] MEDS ORDERED: ZEMURON ONE ×2 (09:19→11:21)
[2019-05-26] MEDS ORDERED: ZOFRAN ONE (09:19)
[2019-05-26] MEDS ORDERED: NEOSTIGMINE ONE ×2 (09:35→11:43)
[2019-05-26] MEDS ORDERED: ROBINUL ONE ×2 (09:35→11:43)
--- NOTE | 2019-05-26 09:53 | PROGRESS NOTE ---
DATE: 05/26/2019 Mr. Az Nolasco is a 68-year-old, white male who was admitted from my outpatient offices yesterday after he presented with known gallstones. He appeared acutely ill. I admitted him to the hospital and asked our hospitalist and infectious disease physicians to see him. He has been recently admitted to [facility] and treated for pneumonia. During the night, his C. difficile culture came back positive. He has had an abdominal x-ray which showed a nonspecific gas pattern. Urinalysis showed white blood cell counts and red blood cell counts in the urine. His white blood cell count was elevated to 14.65. He has had 3 loose bowel movements since admission. His heart rate is 63, blood pressure 125/60, O2 saturation 99%. He is afebrile. He has been given clear liquids but was NPO this morning and is down getting a HIDA scan to rule out acute cholecystitis. He is already being treated for his C. difficile with p.o. vancomycin. cc: MD Saeid Perkins MD
[2019-05-26] MEDS ORDERED: VERSED ONE (10:16)
--- NOTE | 2019-05-26 11:23 | PROGRESS NOTE ---
DATE: 05/26/2019 Mr. Nolasco had a HIDA scan this morning which was abnormal. There was no filling of the gallbladder and so we will proceed with laparoscopic cholecystectomy. I have discussed it with the patient and his . I discussed it with Mr. Nolasco at the bedside I called his by phone. We specifically discussed cholecystectomy including risks of bleeding, infection, injury to the extrahepatic bile ducts requiring reoperation, conversion of laparoscopic to open cholecystectomy, bile leak requiring reoperation for drainage, and injury to intra-abdominal contents for trocar placement. I also discussed his positive Clostridium difficile culture and he is being treated with oral vancomycin. cc: MD Saeid Perkins MD
[2019-05-26] MEDS ORDERED: EPHEDRINE ONE (11:26)
[2019-05-26 11:46] LABS: BASO# 0.05 X1000 (0.0-0.2); BASO% 0.4 % (0.0-0.8); EOS# 0.05 X1000 (0.0-0.7); EOS% 0.4 % (0.0-10.0); HEMATOCRIT 31.4 % (42.0-52.0); HEMOGLOBIN 9.9 g/dL (14.0-18.0); IMM GRAN# 0.04 X1000 (0.0-0.04); IMM GRAN% 0.3 % (0.0-0.5); LYMPH# 0.71 X1000 (1.2-3.4); LYMPH% 5.8 % (20.5-51.1); MCH 29.6 PG (27-31); MCHC 31.5 g/dL (33-37); MONO# 0.84 X1000 (0.11-0.59); MONO% 6.9 % (1.7-9.3); MPV 11.4 FL (7.4-10.4); NEUT# 10.57 X1000 (1.4-6.5); NEUT% 86.2 % (42.2-75.2); PLT 255 X1000 (130-400); RBC 3.34 XMIL (4.7-6.1); RDW 13.6 % (11.5-14.5); WBC 12.26 X1000 (4.8-10.8)
--- NOTE | 2019-05-26 11:50 | Diag Imaging Result Doc PS360 ---
OPERATIVE CHOLANGIOGRAM - 05/26/2019 INDICATION: GALLBLADDER DX TECHNIQUE: The exam was performed by the patient's surgeon. Total fluoroscopy time was 52 seconds. One image was submitted. COMPARISON: None FINDINGS: Contrast was infused into the cystic duct. This outlines a normal common bile duct with good passage of contrast into the duodenum. There is also some reflux of contrast into the main pancreatic duct which also appears normal. IMPRESSION: No complication. Electronically signed by Armani Priest 05/26/2019 11:48 AM
[2019-05-26 12:35] LABS: ALB/GLOB RATIO 0.7; ALBUMIN 2.6 g/dL (3.5-5.0); CALCIUM 8.8 mg/dL (8.8-10.2); CREATININE 2.5 mg/dL (0.7-1.2); POTASSIUM 4.6 mmol/L (3.5-5.1); TOTAL BILIRUBIN 0.44 mg/dL (0.20-1.00); TOTAL PROTEIN 6.2 g/dL (6.3-8.3)
[2019-05-26 13:04] LABS: ANISOCYTOSIS 1+; HYPOCHROM 1+; LYMPHS 3 % (21-51); MONO 7 % (1-9); SEGS 90 % (42-75)
[2019-05-26] MEDS ORDERED: PHENERGAN ONE (13:10)
[2019-05-26] MEDS: DILAUDID ONE ×4 (13:10→13:31)
[2019-05-26] MEDS ORDERED: HUMULIN R SUBQ ONE (13:30)
[2019-05-26] MEDS: NS 1,000 ML IV SCH (14:08)
[2019-05-26] MEDS: ASPIRIN EC PO SCH (14:11)
[2019-05-26] MEDS: COREG PO SCH ×2 (14:12→21:07)
[2019-05-26] MEDS: CULTURELLE PO SCH ×2 (14:12→21:07)
[2019-05-26] MEDS: HEPARIN SUBQ SCH ×2 (14:13→21:07)
[2019-05-26] MEDS: LEVEMIR SUBQ SCH (14:14)
[2019-05-26] MEDS: NORVASC PO SCH (14:15)
[2019-05-26] MEDS: FLAGYL 500 MG/NS 500 MG/100 ML IVPB IV SCH ×2 (14:37→18:33)
--- NOTE | 2019-05-26 16:04 | PROGRESS NOTE ---
DATE: 05/26/2019 INTERVAL HISTORY: Mr. Nolasco got ultrasound of his abdomen yesterday as well as abdominal x-ray. Abdominal x-ray did not have any acute disease. Abdomen ultrasound and HIDA scan, however, did have evidence of acute cholecystitis. OBJECTIVE: Vitals: Temperature of 97.7 degrees, pulse 64, respiratory rate 20. His blood pressure was 129/73. He was saturating 97% on room air. I have not been performed physical examination since the patient is in the operating room. LABORATORY STUDIES: Lab suggestive of WBC of 12,000, hemoglobin 9.9, platelet of 255,000. He does have a BUN of 49, creatinine of 2.5. His blood glucose was 259. His urine culture was growing gram-negative stefan, however, I was unsure of the symptoms and I am going to keep him on ceftriaxone until I get further historical data. ASSESSMENT AND PLAN: 1. Acute calculous cholecystitis. The patient is undergoing cholecystectomy today. I will follow up with postoperative surgical recommendations. 2. Acute Clostridium difficile colitis, likely contributing to his abdominal pain and diarrhea. I will keep him on oral vancomycin whenever he is able to take medicines by mouth. Until then, I am also keeping him on intravenous metronidazole. 3. Gram-negative pyuria. Historical data regarding symptoms are pending. In any case, he is on intravenous ceftriaxone. I will follow up with final culture and sensitivity reports. 4. History of essential hypertension, insulin-dependent diabetes mellitus type 2, and chronic kidney disease stage 3 to stage 4 due to nephrotic syndrome. I will keep him on his home amlodipine, carvedilol, aspirin, insulin detemir with sliding scale insulin and will follow up with blood glucose and adjust insulin dose accordingly. I am holding his lisinopril until 48 hours after surgery to prevent acute kidney injury on chronic kidney disease. DISPOSITION: As per the primary team. I will re-evaluate the patient later. cc: Saeid Barnes MD
[2019-05-26] MEDS ORDERED: ROCEPHIN 1 GM in NS 50 ML IV SCH (18:00)
--- NOTE | 2019-05-26 19:29 | PROGRESS NOTE ---
DATE: 05/26/2019 I am seeing Mr. Nolasco postoperatively. He underwent laparoscopic cholecystectomy. He is still under influence of some of the anesthetic medication and he appears drowsy. However, today he denies any undue pain.Lungs: Air entry bilaterally equal. No wheeze, rhonchi, crackles. Heart: Sounds are normal with no murmur or gallop. ABDOMEN: Is soft. There are laparoscopy scars. Mild tenderness around the wound. I could not appreciate bowel sounds. Extremities: No lower extremity edema. His is at currently baseline regarding his blood glucose management. I am going to keep him on sliding scale insulin, and I will stop intravenous fluids after 1 liter to make sure he does not go into to volume overload. I discussed plan of care with the patient's at bedside. All questions have been answered. cc: Saeid Barnes MD MTDD
--- NOTE | 2019-05-26 19:51 | OPERATIVE NOTE ---
PROCEDURE DATE: 05/26/2019 PREOPERATIVE DIAGNOSIS: Chronic cholecystitis with cholelithiasis. POSTOPERATIVE DIAGNOSIS: Chronic cholecystitis with cholelithiasis. PRINCIPAL PROCEDURE: Laparoscopic cholecystectomy with intraoperative cholangiogram. SURGEON: Sindhu Royal MD. HEAD BANQUET WAITER/WAITRESS: Driss, General Surgery resident. ANESTHESIA: General, in addition local anesthetic. ESTIMATED BLOOD LOSS: 25 mL. DRAINS: None. INDICATIONS: Mr. zA Nolasco is a 68-year-old white male who I admitted from our office yesterday with nausea and vomiting and he appeared to be acutely ill. He had known gallstones and was recently hospitalized with pneumonia and since his hospitalization yesterday he has tested positive for C difficile. He has undergone repeat ultrasound of his gallbladder which documented stones and a HIDA scan this morning was abnormal. A cholecystectomy was recommended. FINDINGS: The gallbladder was chronically inflamed and had numerous small stones within it. It was not acutely inflamed and there was no evidence of acute cholecystitis. The liver appeared to be healthy. We did do an intraoperative cholangiogram, which showed free flow of the dye into the duodenum without evidence of extrahepatic stones or obstruction. There was no abnormal dilatation of the extrahepatic bile ducts. No other intraabdominal pathology was noted. We felt we did the operation safely. DESCRIPTION OF PROCEDURE: The patient was brought to the operating room, placed supine, received general anesthesia, and was intubated. His abdomen was prepped and draped within a sterile field. We began the procedure by making a curvilinear incision below the umbilicus using a 15 blade scalpel. Veress needle was introduced through this incision into the abdomen. Pneumoperitoneum was established. Veress needle was removed and we placed a 11 mm trocar through this incision into the abdomen. The camera was placed through this port and the abdomen was explored for injury, there was none. Three other trocars were placed along the right costal margin under direct vision of the camera. We placed a 11 mm trocar just to the right of the midline and two 5 mm trocars in our midclavicular and anterior axillary lines. Through our most lateral port, the gallbladder was grasped and retracted superiorly along with the right lobe of the liver. Another grasper was used to grab the body of the gallbladder and the triangle of Calot was bluntly dissected. We identified the cystic artery initially. A clip was placed distally, two proximally. It was divided using hook scissors. The cystic duct was dissected along its length. I placed a clip at the cystic duct gallbladder junction. I made a small incision in the cystic duct using hook scissors and a Taut intraoperative cholangiogram catheter was used to perform the cholangiogram with findings above. Once cholangiogram was completed, the catheter was removed and 2 clips were placed proximally on the cystic duct. I divided the cystic duct between clips using hook scissors. The spatula cautery was used to remove the gallbladder from the liver bed. We used an endobag to remove the gallbladder through our umbilical incision. I placed the trocar back through this incision and the area of operation was thoroughly inspected, irrigated, and the irrigation was removed with suction. There was no evidence of ongoing bleeding or bile leak. No drains were left. All trocars removed under direct vision the camera. The pneumoperitoneum was allowed to dissipate. I used a [id number] 2-0 Vicryl stitch to reapproximate the fascia below the umbilicus and all skin was closed with 4-0 Monocryl subcuticular stitches. Steri-Strips were applied. He tolerated the procedure well with plans for him to go the recovery room and then return to the floor. cc: MD Saeid Perkins MD
[2019-05-26] MEDS ORDERED: COREG PO SCH (21:00)
[2019-05-26] MEDS: PERIDEX MT SCH (21:07)
[2019-05-27] MEDS: FLAGYL 500 MG/NS 500 MG/100 ML IVPB IV SCH ×3 (00:29→13:02)
[2019-05-27] MEDS: HUMULIN R SUBQ SCH ×2 (00:29→06:13)
[2019-05-27] MEDS: VANCOCIN PO SCH ×3 (02:43→13:03)
[2019-05-27] MEDS: PROTONIX IV SCH (06:12)
[2019-05-27] MEDS: SODIUM CHLORIDE 0.9% INJ SCH (06:13)
[2019-05-27 07:27] LABS: BASO# 0.01 X1000 (0.0-0.2); BASO% 0.1 % (0.0-0.8); HEMOGLOBIN 9.1 g/dL (14.0-18.0); IMM GRAN# 0.04 X1000 (0.0-0.04); IMM GRAN% 0.4 % (0.0-0.5); LYMPH# 0.83 X1000 (1.2-3.4); LYMPH% 7.9 % (20.5-51.1); MCH 29.9 PG (27-31); MCHC 32.5 g/dL (33-37); MCV 92.1 FL (81-99); MONO# 0.59 X1000 (0.11-0.59); MONO% 5.6 % (1.7-9.3); MPV 10.7 FL (7.4-10.4); NEUT# 9.05 X1000 (1.4-6.5); PLT 253 X1000 (130-400); RBC 3.04 XMIL (4.7-6.1); RDW 13.3 % (11.5-14.5); WBC 10.52 X1000 (4.8-10.8)
[2019-05-27 08:20] LABS: CALCIUM 8.3 mg/dL (8.8-10.2); CREATININE 2.8 mg/dL (0.7-1.2); POTASSIUM 4.3 mmol/L (3.5-5.1)
[2019-05-27] MEDS: COREG PO SCH (08:58)
[2019-05-27] MEDS: NORVASC PO SCH (08:58)
[2019-05-27] MEDS: CULTURELLE PO SCH (08:58)
[2019-05-27] MEDS: HEPARIN SUBQ SCH (08:58)
[2019-05-27] MEDS: ASPIRIN EC PO SCH (08:58)
[2019-05-27] MEDS: LEVEMIR SUBQ SCH ×2 (08:59→09:02)
[2019-05-27] MEDS: PERIDEX MT SCH (08:59)
--- NOTE | 2019-05-27 08:59 | PROGRESS NOTE ---
DATE: 05/27/2019 SUBJECTIVE: Mr. Az Nolasco is a 68-year-old, white male, now postop day 1 from a laparoscopic cholecystectomy with intraoperative cholangiogram. He had numerous small stones in his gallbladder. His gallbladder was chronically inflamed, but there was no evidence of acute infection at the time of surgery of his gallbladder. He does have a gram-negative stefan in his urine consistent with a urinary tract infection. He also has positive Clostridium difficile studies. His antibiotics have been changed over the last 24 hours. He is on vancomycin 125 mg p.o. 4 times a day, but Flagyl 500 mg IV q.6 hours been added and now he is on ceftriaxone daily. His white blood cell count has gone from 14 to 12. His creatinine has increased from 2.3 to 2.5. He is sleeping this morning. OBJECTIVE: Vital Signs: His heart rate is 52, blood pressure 133/51, O2 saturation 99%. He is afebrile. ASSESSMENT AND PLAN: He continues to have loose stools. His glucose has been elevated. He is on an insulin sliding scale. I will advance his diet today. We will try to increase his activity. He has been recently hospitalized and given IV antibiotics for pneumonia which could have helped cause his C. Difficile. I am not sure what the etiology of his urinary tract infection is. cc: MD Saeid Perkins MD
[2019-05-27] MEDS ORDERED: ASPIRIN PO SCH (09:00)
[2019-05-27] MEDS ORDERED: LEVEMIR SUBQ SCH (09:00)
[2019-05-27] MEDS ORDERED: NORVASC PO SCH (09:00)
[2019-05-27] MEDS: NS 1,000 ML IV SCH (09:18)
[2019-05-27] MEDS: KEFLEX PO SCH (13:54)
[2019-05-27] MEDS ORDERED: KEFLEX PO SCH (14:00)
[2019-05-27] MEDS: HUMALOG SUBQ SCH ×2 (17:49→17:50)
--- NOTE | 2019-05-27 20:35 | PROGRESS NOTE ---
DATE: 05/27/2019 INTERVAL HISTORY: No acute events overnight. He was able to eat his meal in the morning time. He denies any chest pain, shortness of breath, cough, nausea, vomiting, or diarrhea. He had 1 episode of nausea, which improved. VITALS: Temperature 98.4 degrees, pulse 58, respiratory 14, blood pressure 128/53, saturating 95% on room air. PHYSICAL EXAMINATION: Not in acute distress.Oral cavity: Is moist. Lungs: Air entry bilaterally equal. No wheeze, rhonchi, crackles. Cardiovascular: S1, S2 normal. No murmur or gallop. Abdomen: Soft. Midline scar of laparoscopy. Multiple ports. Mild tenderness. Active bowel sounds. Extremities: Mild lower extremity edema. Neurologic: He is alert and oriented x3. LABS: Suggestive of resolution of leukocytosis to 10,000, hemoglobin 9.1, platelet 253,000. He does have BUN of 50, creatinine of 2.8. Microbiology: blood cultures were drawn yesterday, which was unremarkable so far. IMAGING: No new imaging. ASSESSMENT AND Recommendations: 1. Calculous cholecystitis status post laparoscopic cholecystectomy. Today is postoperative day 1. Continue wound care as per surgery recommendation. He has been started on diet. We will keep him on acetaminophen as needed for pain and chlorhexidine for pneumonia prophylaxis as per Surgery recommendations. 2. Acute Clostridium difficile colitis likely contributing to his abdominal pain and diarrhea. Continue oral vancomycin for 10 days. Prescription has been sent to his pharmacy. 3. Acute cystitis due to Klebsiella pneumoniae urinary tract infection. The patient does mention symptoms of benign prostatic hypertrophy, which have been ongoing since past several months including increased frequency of urination, feeling of incomplete emptying of bladder, nocturia, dribbling of urine, and weak urinary stream. He likely has benign prostatic hypertrophy and he was started on medication by his outpatient provider. I discussed with him about following up with outpatient provider and resuming treatment. His urinary retention could have contributed to his acute cystitis. I will change his antibiotics from ceftriaxone to cephalexin or Keflex.Prescription has been sent to his pharmacy. 4. Insulin-dependent diabetes mellitus with hyperglycemia. He did not receive his long acting insulin yesterday. I will resume his detemir and mealtime insulin. 5. Essential hypertension. Continue home lisinopril and amlodipine currently blood pressure is in acceptable range. 6. History of chronic kidney disease and nephrotic syndrome. Currently, there is slight increase in creatinine. This is likely related to mild volume depletion due to acute blood loss. He does not need blood transfusion. 7. Disposition. Continue to monitor patient inside the hospital. Plan of care discussed with the patient. Medically, he can be discharged when it is appropriate from surgery team's perspective. cc: Saeid Barnes MD MTDD
--- NOTE | 2019-05-27 20:54 | INFECTIOUS DISEASE PROGRESS NO ---
DATE: 05/27/2019 PRESENT ILLNESS: The patient is status post laparoscopic cholecystectomy for cholecystitis. He also has a Klebsiella urinary tract infection and Clostridium difficile diarrhea. MEDICATIONS: Currently, the patient is on p.o. Keflex and p.o. vancomycin. PHYSICAL EXAMINATION: Vital Signs: Temperature is 98.4 degrees, pulse 58, respirations 14, blood pressure 128/53. General: This is a somewhat ill-appearing elderly male. He is in no acute distress. Head/eyes/ears/nose/throat: He can hear my spoken words and see near objects. He does not have any white coating on his tongue. Neck: No pain with movement. Lungs: Clear to auscultation. Cardiovascular: Regular heart rate. Abdomen: Soft and nontender. Neurologic: The patient is alert. He can move his extremities. There is no tremor. LAB AND X-RAY: CBC shows a white count 50043, hemoglobin 10.1, platelet count is 253,000, creatinine is 2.8, GFR is 23. Clostridium difficile toxin and antigen is positive. Urine cultures positive for Klebsiella. Blood cultures are pending. ASSESSMENT AND PLAN: The patient is status post cholecystectomy for cholecystitis. The patient has Clostridium difficile diarrhea for which he is on p.o. vancomycin. He also has a Klebsiella urinary tract infection. He was on Rocephin and now he is on Keflex. COMORBIDITIES: The patient is elderly. He has a history of an immunoglobulin deficiency, diabetes mellitus, chronic renal calculi, and gallstones. cc: MD Saeid Jacobo MD
[2019-05-28] MEDS: VANCOCIN PO SCH ×6 (00:44→21:51)
[2019-05-28] MEDS: PERIDEX MT SCH ×3 (00:45→21:51)
[2019-05-28] MEDS: CULTURELLE PO SCH ×3 (00:46→21:51)
[2019-05-28] MEDS: KEFLEX PO SCH ×3 (00:46→15:28)
[2019-05-28] MEDS: COREG PO SCH ×3 (00:46→21:51)
[2019-05-28] MEDS: HEPARIN SUBQ SCH ×3 (00:47→21:46)
[2019-05-28] MEDS: HUMALOG SUBQ SCH ×10 (01:08→22:00)
[2019-05-28] MEDS: PROTONIX IV SCH (06:41)
[2019-05-28] MEDS: SODIUM CHLORIDE 0.9% INJ SCH (06:41)
[2019-05-28 07:40] LABS: BASO# 0.06 X1000 (0.0-0.2); BASO% 0.6 % (0.0-0.8); EOS# 0.14 X1000 (0.0-0.7); EOS% 1.3 % (0.0-10.0); HEMATOCRIT 32.7 % (42.0-52.0); HEMOGLOBIN 10.6 g/dL (14.0-18.0); IMM GRAN# 0.11 X1000 (0.0-0.04); LYMPH# 1.15 X1000 (1.2-3.4); LYMPH% 10.8 % (20.5-51.1); MCH 29.8 PG (27-31); MCHC 32.4 g/dL (33-37); MCV 91.9 FL (81-99); MONO# 0.62 X1000 (0.11-0.59); MONO% 5.8 % (1.7-9.3); MPV 10.7 FL (7.4-10.4); NEUT# 8.53 X1000 (1.4-6.5); NEUT% 80.5 % (42.2-75.2); PLT 332 X1000 (130-400); RBC 3.56 XMIL (4.7-6.1); RDW 13.4 % (11.5-14.5); WBC 10.61 X1000 (4.8-10.8)
[2019-05-28 08:21] LABS: BANDS 1 % (0-1); LYMPHS 12 % (21-51); MONO 5 % (1-9); SEGS 82 % (42-75)
[2019-05-28] MEDS: NORVASC PO SCH (08:26)
[2019-05-28] MEDS: PRINIVIL PO SCH ×2 (08:26→21:51)
[2019-05-28] MEDS: ASPIRIN EC PO SCH (08:26)
[2019-05-28 08:31] LABS: CALCIUM 8.6 mg/dL (8.8-10.2); CREATININE 2.5 mg/dL (0.7-1.2); POTASSIUM 3.6 mmol/L (3.5-5.1)
[2019-05-28] MEDS ORDERED: FLOMAX PO ONE (08:35)
[2019-05-28] MEDS: LEVEMIR SUBQ SCH (08:51)
--- NOTE | 2019-05-28 11:25 | PROGRESS NOTE ---
DATE: 05/28/2019 SUBJECTIVE: Mr. Az Nolasco is status post laparoscopic cholecystectomy. He also has a Clostridium difficile infection and a urinary tract infection. He is a diabetic. Mikayla Ontiveros is his primary care nurse practitioner. His IV antibiotics been changed to by mouth antibiotics. He is having problems emptying his bladder, and I will start him on Flomax. We will consider a Urology consult. He is on a diabetic diet. OBJECTIVE: His abdomen is soft. His diarrhea is resolving. He remains weak. His heart rate is 57, blood pressure 127/56, and O2 saturation 99%. He is afebrile. His glucose is 151. White count is normal. Hematocrit is 33%. BUN and creatinine are 45 and 2.5. His creatinine baseline is 2.4 to 2.5. PLAN: Our hospitalists feel medically he could go home on p.o. Keflex for 5 days and p.o. vancomycin for 10 days. I will add Flomax to his discharge medications. I will check back with him this afternoon to see if he is feeling less weak for discharge. cc: MD Saeid Perkins MD
--- NOTE | 2019-05-28 14:38 | PROGRESS NOTE ---
DATE: 05/28/2019 NO DICTATION. Dictated by Catalina Tillman Student for Saeid Barnes MD This chart was documented by, Catalina Tillman and accurately reflects the services performed, treatment plan and medical decisions as attested by the providers signature Saeid Barnes MD. A SEPARATE ADDENDUM HAS BEEN DICTATED. cc: Saeid Barnes MD MTDD
--- NOTE | 2019-05-28 14:55 | PROGRESS NOTE ---
DATE: 05/28/2019 SUBJECTIVE: Mr. Nolasco is doing well. He had no acute events overnight. He was able to eat. He has had no difficulties. He states that his abdominal pain is decreased. He is overall feeling well. He has had some complaints of urinary problems and he has had one small bowel movement. OBJECTIVE: Vital Signs: Temperature maximum 98.4, pulse range was 57 to 58, blood pressure 119 to 154/54 to 70. He is breathing room air. General: He is in no acute distress. He is resting comfortably in the bed. Cardiovascular: Regular rate and rhythm. Normal S1, S2. No murmurs, rubs, or gallops. Lungs: Clear to auscultation bilaterally. Abdomen: Soft. Nontender. Mild distention. Incisions are clean, dry, and intact. Extremities: Moves all extremities well. Does have some bilateral +2 pitting edema in his lower extremities. LABS: White count is 10.61, hemoglobin is 10.6, this has improved from 9.1. Sodium 138, potassium 3.6, creatinine 2.5, BUN 45, blood glucose 152. IMAGING: No new images were obtained. ASSESSMENT AND PLAN: 1. Status post cholecystectomy. This is postoperative day #2. He is doing well. Recommendations for discharge from the surgeon. 2. Clostridium difficile infection. Oral vancomycin was called into the patient's pharmacy. He will follow up with this and complete for a total of ten days. Prescription was sent. 3. Acute cystitis due to Klebsiella urinary tract infection. He has a history of benign prostatic hypertrophy and was started on Flomax by Dr. Royal. He will see how he does with this and keep him in the hospital until symptoms improve. His antibiotics were changed to cephalexin and this has been sent to his pharmacy. He will finish out that course. 4. Insulin dependent diabetes mellitus with hyperglycemia. His blood glucose is well controlled today. Continue to use his normal home medications. 5. Essential hypertension. Continue his home lisinopril and amlodipine. His blood pressure is doing well currently. 6. History of chronic kidney disease. Nephrotic syndrome. He has had a creatinine of 2.5, this has been his normal range. Will continue to monitor this. His home Lasix has been added today. 7. Disposition. Will continue to monitor him in the hospital. The plan of care was discussed with him and medically he is clear for discharge from medical standpoint. Dictated by Yakov Story Medical Student for Saeid Barnes MD This chart was documented by, Catalina Tillman and accurately reflects the services performed, treatment plan and medical decisions as attested by the providers signature Saeid Barnes MD. cc: Saeid Barnes MD I agree with most components of assessment and plan. A separate addendum has been dictated. [facility]
--- NOTE | 2019-05-28 15:14 | PROGRESS NOTE ---
DATE: 05/28/2019 INTERVAL HISTORY: No acute events overnight. His diarrhea frequency has decreased. SUBJECTIVE: Mr. Nolasco denies any chest pain, shortness of breath, or cough. He denies any nausea and vomiting. He had a small bowel movement in the morning time. He complains of frequent urination. We discussed about treating his urinary tract infection. Surgery team on board and considering urology evaluation. VITALS: Currently, temperature 98.2 degrees, pulse 60, respiratory rate 19, blood pressure 140/60, saturating 100% on room air. PHYSICAL EXAMINATION: Not in acute distress. Oral cavity is moist. Air entry bilaterally equal. No wheeze, rhonchi, or crackles. S1, S2 normal. No murmur, rub, or gallop. Abdomen is soft, nontender. Scars of laparoscopy site appear to be healing well without any undue bleeding. Active bowel sounds. He has lower extremity edema. He is alert and oriented x3. ASSESSMENT AND PLAN: 1. Calculous cholecystitis, status post laparoscopic cholecystectomy. Today is postoperative day 2. 2. Acute Clostridium difficile colitis. 3. Acute cystitis due to Klebsiella pneumoniae urinary tract infection. 4. Insulin-dependent diabetes mellitus. 5. Essential hypertension. 6. Benign prostatic hypertrophy. 7. 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 PLAN: 1. Continue oral vancomycin for a total of 10 days. 2. Continue oral Keflex for a total of 5 to 7 days. Prescriptions of both antibiotics have been sent to the pharmacy. 3. Continue insulin regimen for diabetes. 4. Resume his Lasix and have outpatient nephrology followup for his chronic kidney disease. 5. The patient is medically stable to be discharged. Thank you for allowing us to take part in this patient's care. cc: Saeid Barnes MD
[2019-05-28] MEDS: LASIX PO SCH (15:42)
--- NOTE | 2019-05-28 20:57 | INFECTIOUS DISEASE PROGRESS NO ---
DATE: 05/28/2019 PRESENT ILLNESS: The patient is status post laparoscopic cholecystectomy for cholecystitis. The patient also has Klebsiella urinary tract infection and Clostridium difficile diarrhea. MEDICATIONS: The patient has been on the vancomycin p.o. for his Clostridium difficile for a total of 3 days and the patient is on Keflex now for the patient's Klebsiella urinary tract infection. The patient has been on antibiotics for the urinary tract infection for at least 4 days. PHYSICAL EXAMINATION: Vital Signs: Temperature is 97.6 degrees, pulse 59, respirations 19, blood pressure 134/57. General: This is an ill-appearing elderly male. He is in no acute distress. Head/eyes/ears/nose/throat: He can hear my spoken words and see near objects. He does not have any white patches in his mouth. Neck: No pain with movement. Lungs: Clear to auscultation. Cardiovascular: Regular heart rate. Abdomen: Soft. It is not tender. It is slightly protuberant. I do hear breath sounds from it. Neurologic: The patient is alert. He can sit in a chair and take steps also. He does not have a tremor. LAB AND X-RAY: The patient's CBC today shows a white count of 10,610, hemoglobin 10.6, platelet count 332,000. Creatinine is 2.5. GFR is 26. The repeated blood cultures are negative. ASSESSMENT AND PLAN: Patient has had a cholecystectomy. Also has Clostridium difficile diarrhea for which I am going to treat him. I am going to continue vancomycin. He also has a Klebsiella urinary tract infection for which now he is on Keflex, which I am going to keep him on. The patient will require of 14 days of treatment for both the Clostridium difficile diarrhea and for the urinary tract infection with Keflex. COMORBIDITIES: The patient is elderly. He has a history of an immunoglobulin deficiency. He also has diabetes mellitus, chronic renal disease, renal calculi, and gallstones. cc: MD Saeid Jacobo MD
[2019-05-29] MEDS: VANCOCIN PO SCH ×3 (00:49→10:48)
[2019-05-29] MEDS: KEFLEX PO SCH ×2 (00:49→10:48)
[2019-05-29] MEDS: HUMALOG SUBQ SCH ×4 (08:01→11:29)
[2019-05-29 08:49] LABS: CALCIUM 8.4 mg/dL (8.8-10.2); CREATININE 2.2 mg/dL (0.7-1.2); POTASSIUM 4.1 mmol/L (3.5-5.1)
[2019-05-29] MEDS ORDERED: FLOMAX PO SCH (09:00)
[2019-05-29] MEDS: PRINIVIL PO SCH (10:48)
[2019-05-29] MEDS: NORVASC PO SCH (10:48)
[2019-05-29] MEDS: COREG PO SCH (10:48)
[2019-05-29] MEDS: ASPIRIN EC PO SCH (10:48)
[2019-05-29] MEDS: LASIX PO SCH (10:48)
[2019-05-29] MEDS: HEPARIN SUBQ SCH (10:49)
[2019-05-29] MEDS: PERIDEX MT SCH (10:49)
[2019-05-29] MEDS: CULTURELLE PO SCH (10:49)
[2019-05-29] MEDS: LEVEMIR SUBQ SCH (11:07)
[2019-05-29 12:44] VITALS: BP 130/50
--- NOTE | 2019-05-29 13:33 | PROGRESS NOTE ---
DATE: 05/29/2019 INTERVAL HISTORY: No acute events overnight. SUBJECTIVE: Mr. Nolasco is feeling great. Denies any complaints. He is eating okay. He denies any diarrhea, abdominal pain. VITALS: Temperature 98.7 degrees, pulse 60, respiratory rate 14, blood pressure 142/56, saturating 98% room air. PHYSICAL EXAMINATION: General: Oral cavity is moist. Air entry bilaterally equal. No wheeze or crackles. S1, S2 normal. No murmur or gallop. Abdomen: Soft. Laparoscopy port site appears to be healing well without any bleeding or discharge. Active bowel sounds. Extremities: He has bilateral lower extremity edema. Edema: He is alert and oriented x3. His is at bedside. LABORATORY: Hemoglobin 10.6, platelets 332,000, BUN 32, creatinine 2.2. No new microbiological or imaging data. ASSESSMENT: 1. Calculous cholecystitis status post laparoscopic cholecystectomy. Today is postoperative day 3. 2. Acute Clostridium difficile colitis. 3. Acute cystitis due to Klebsiella pneumoniae. 4. Insulin-dependent diabetes mellitus. 5. Benign prostatic hypertrophy. 6. Essential hypertension. 7. 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 PLAN: 1. Continue oral vancomycin for total of 10 days. 2. Continue oral Keflex for total of 5 to 7 days. 3. Continue home insulin regimen. 4. Continue home Lasix with outpatient Nephrology follow-up for CKD. 5. Patient is medically ready for discharge. Thank you for allowing us to take part in this patient's care. cc: Saeid Barnes MD
--- NOTE | 2019-05-29 21:31 | DISCHARGE SUMMARY ---
ADMISSION DATE: 05/25/2019 DISCHARGE DATE: 05/29/2019 ADMITTING DIAGNOSIS: 1. Clostridium difficile diarrhea. 2. Klebsiella urinary tract infection. 3. Chronic cholecystitis with cholelithiasis. PRINCIPAL PROCEDURE: 1. Ultrasound of the gallbladder. 2. HIDA scan. 3. Laparoscopic cholecystectomy with intraoperative cholangiogram on 05/26/2019. DISCHARGE DISABILITIES: Full. DISCHARGE MEDICATIONS: He is to return to his home medications except we added Keflex for 5 days for his urinary tract infection. We added vancomycin orally for 10 days because of the C difficile infection and I added Flomax 0.4 mg once daily because of his problems with prostatic hypertrophy. HOSPITALIZATION: Mr. Az Nolasco is a 68-year-old white male diabetic who was hospitalized earlier this winter with pneumonia. He received antibiotics and was discharged home. I saw him in our outpatient offices as a followup because of his chronic cholecystitis with cholelithiasis. In my office he looked acutely ill and was hospitalized. Dr. Ortega and the hospitalists were consulted and we quickly discovered that he had Clostridium difficile diarrhea and he had a urinary tract infection which turned out to be Klebsiella. I took his gallbladder out on hospital day 2. It was not acutely inflamed but he had chronic cholecystitis with cholelithiasis. He was treated with antibiotics and clinically improved. He had no complications from his laparoscopic cholecystectomy. He was started on Flomax for frequency. It was felt safe to discharge him home on 05/29/2019 under the care of his with followup in our outpatient offices in a week. He is also to contact Mikayla Ontiveros, his primary care nurse practitioner. At discharge, his BUN and creatinine were 33 and 2.2. His white blood cell count was normal and he was afebrile. His heart rate was 57, blood pressure 142/56, O2 saturation 98%. They know to contact me if he has any increasing abdominal pain, nausea or vomiting. cc: MD Saeid Wilde MD
== END 2019-05-29 13:38 | disposition home or self-care (01) | DRG 418 ==
LOC: SUATTDRO 13:39 → DIRADM 13:39 → 4N 14:18
PROVIDERS: ADMIT Internal Medicine; ATTEND Surgery